=== PATIENT | female | born 1990 ===

== ENCOUNTER 2021-08-13 09:25 | Emergency (ER) | payer OTHER, SELFPAY ==
--- NOTE | ~2021-08-13 | CT_ITS ---
EXAMINATION: CT ABDOMEN AND PELVIS WITH CONTRAST CLINICAL INFORMATION: Lower abdominal pain. Periumbilical pain. Small umbilical hernia. COMPARISON: None TECHNIQUE: Multidetector volumetric images were obtained from the superior aspect of the liver through the pubic symphysis following administration 85 mL of Omnipaque 350 intravenous contrast. Sagittal and coronal reformatted images were obtained on the technologist's workstation. Oral contrast: No This CT examination was performed using dose optimization techniques as appropriate, variously including the following: *Automated exposure control *Adjustment of mA and/or kV according to patient size (this includes techniques or standardized protocols for targeted exams where dose is matched to indication/reason for exam; i.e. extremities or head) *Use of iterative reconstruction technique DLP: 573 mGy-cm FINDINGS: LUNG BASES: Bilateral lower lobe linear atelectasis. The visualized cardiac structures are unremarkable LIVER, GALLBLADDER, AND BILIARY TREE: The liver is normal in size, shape, and attenuation. No focal hepatic lesion or intrahepatic biliary ductal dilatation is present. The gallbladder is absent. Dilated common bile duct measuring up to 1.2 cm. No ductal filling defect. PANCREAS: Mildly prominent pancreatic duct. No focal pancreatic parenchymal abnormality. SPLEEN: Unremarkable. ADRENAL GLANDS: Unremarkable. KIDNEYS AND URETERS: The kidneys are normal in size, shape, and attenuation. No hydronephrosis, hydroureter, or calculi seen. No perinephric stranding. Multiple hypoattenuating lesions seen in both kidneys. These are too small to fully characterize. BLADDER: Unremarkable. GASTROINTESTINAL TRACT: Small hiatal hernia. The stomach is otherwise unremarkable. Normal caliber small bowel. There is no obstruction. Normal appendix. No colonic wall thickening or acute inflammation. Moderate colonic stool burden with stool seen throughout the entirety of the colon. No free air or free fluid. ABDOMINAL WALL: There is a fat-containing umbilical hernia. This measures 3.5 cm transverse. LYMPH NODES: Normal. VASCULAR: Unremarkable. PELVIC VISCERA: Anteverted uterus with IUD in place. No adnexal mass. OSSEOUS STRUCTURES: Unremarkable. CT/CT abdomen pelvis w con IMPRESSION: No acute inflammatory change of the abdomen or pelvis. Normal appendix. Fat-containing umbilical hernia noted. Moderate colonic stool burden. Multiple hypoattenuating lesions in the kidneys which are too small to fully characterize. Cysts are favored. Ultrasound could performed on a nonemergent basis. Fleischner guidelines were followed.
[2021-08-13 09:35] VITALS: BP 120/82; PULSE 80; O2SAT 98
[2021-08-13 09:47] VITALS: BP 138/79; PULSE 115; RESP 18; TEMP 36.8; O2SAT 100; BMI 27.4
[2021-08-13 16:44] LABS: MANUAL DIFF FLAG NO
[2021-08-13 16:47] LABS: Basophils Percent Auto 0.2 % (0-2); Eosinophils Absolute Auto 0.1 X10*3/uL (0.0-0.4); Eosinophils Percent Auto 1.1 % (0-4); Hematocrit 35.6 % (37.0-47.0); Hemoglobin 11.6 g/dl (12.0-16.0); Imm Gran Abs Auto 0.01 X10*3/uL (0.00-0.03); Imm Gran Pct Auto 0.2 % (0.0-0.4); Lymphocytes Absolute Auto 1.6 X10*3/uL (1.2-4.9); Mean Corpuscular HGB Conc 32.6 g/dl (31.0-35.0); Mean Corpuscular Hemoglobin 28.8 pg (27.0-33.0); Mean Corpuscular Volume 88.3 fL (80.0-98.0); Monocytes Absolute Auto 0.2 X10*3/uL (0.1-1.2); Monocytes Percent Auto 5.3 % (2-11); Neutrophils Absolute Auto 2.6 x10*3/uL (2.0-8.3); Neutrophils Percent Auto 58.2 % (45-73); Platelet Count 273 X10*3/uL (160-400); Red Blood Count 4.03 X10*6/uL (4.20-5.50); Red Cell Distribution Width 12.9 % (11.0-16.0); White Blood Count 4.5 X10*3/uL (4.8-10.8)
[2021-08-13 16:59] LABS: COVID-19 Test Negative (Negative)
[2021-08-13 17:04] LABS: Alanine Aminotransferase 22 U/L (0-31); Albumin Level 3.5 g/dL (3.5-5.0); Alkaline Phosphatase 106 U/L (39-117); Aspartate Amino Transferase 32 U/L (5-31); Bilirubin Direct 0.2 mg/dL (0.0-0.5); Bilirubin Total 0.3 mg/dL (0.0-1.0); Blood Urea Nitrogen 3 mg/dL (9-16); Creatinine Clr Calc Pharmacy 125.1; Estimated Glomerular Filt Rate > 60; Glucose Random 79 mg/dL (60-115); Lipase 10 U/L (8-78); Magnesium 2.1 mg/dL (1.6-2.6); Total Protein 8.2 g/dL (6.5-8.0)
[2021-08-13 17:15] LABS: Anion Gap 12 (12-20); Carbon Dioxide 26 mmol/L (22-29); Chloride 103 mmol/L (96-108); Potassium 4.2 mmol/L (3.3-5.1); Sodium 137 mmol/L (135-145)
[2021-08-13 21:45] VITALS: BP 108/71; PULSE 116; TEMP 36.8; O2SAT 96
[2021-08-13] MEDS: Ondansetron ODT 4 MG TAB.RAPDIS TRANSLINGU (21:49)
--- NOTE | 2021-08-13 23:45 | ED.ABDPAIN ---
HPI - Abdominal Pain General Chief Complaint: Abdominal Pain Stated Complaint: ABD PAIN,VOMITING,-VACC Time Seen by Provider: 08/13/21 11:52 Source: patient Mode of arrival: EMS Limitations: no limitations History of Present Illness HPI narrative: 31-year-old female who presents emergency department by ambulance for evaluation of abdominal pain. Patient states that she has been having intermittent abdominal pain for approximately 3 weeks. She also noticed a lump in the area of her belly button approximately 3 or 4 weeks prior. She states that she has been having intermittent pain mainly in the umbilical area. She states this morning she woke up and had a severe, sharp pain in the bili cul area which is been constant throughout the day. She states that the pain is 6/10 at its worst. She states she has been vomiting all day and has only been able to hold down small amounts of fluid. She a normal bowel movement this morning. She denied frequency, urgency or dysuria. She denied myalgias arthralgias. She states she has had chills but no fever. The patient states she has an IUD and she does not believes she is . patient did receive Zofran 4 mg IV by the paramedics with improvement of her nausea but no change in her abdominal pain. The patient has not been vaccinated for COVID-19. Related Data Allergies Allergy/AdvReac Type Severity Reaction Status Date / Time From REGLAN Allergy Unknown ITCHING Uncoded 04/14/20 18:27 Review of Systems Review of Systems Yes all other systems are reviewed and are negative Physical Exam Vital Signs: Vital Signs: Last Vital Signs Temp 97.9 F 08/14/21 00:57 Pulse 90 08/14/21 00:57 Resp 16 08/14/21 00:57 BP 99/54 L 08/14/21 00:57 Pulse Ox 99 08/14/21 00:57 BMI result Body Mass Index 27.4 Const: Other: Very pleasant and cooperative female patient, does not appear to be in distress, answers all questions appropriately. HENMT: Head: Yes normal to inspection, Yes normocephalic and Yes atraumatic Ears: external ears normal General nose exam: Normal external nose present Face and sinus: Yes normal facial exam Mouth: Normal oral and palatal mucosa present Throat: Yes posterior oropharynx normal Eyes: General: appearance normal, both eyes and all related structures Pupils: Equal, round and reactive pupils present Neck: Neck: Yes normal visual inspection, Yes no lymphadenopathy, Yes trachea midline and Yes supple Chest: Chest palpation & inspection: normal inspection of the chest and normal palpation of entire chest wall Resp: Effort & Inspection: normal respiratory effort and able to speak in complete sentences Auscultation: clear to auscultation bilaterally Cardio: Rate: regular rate Rhythm: regular rhythm Heart sounds: S1 normal heart sound present, S2 normal heart sound present and no murmurs GI: Inspection: No distended and Yes other ( small umbilical hernia at 12 o'clock) Palpation (GI): Soft to palpation, Tenderness to palpation present (GI) periumbilically ( Moderate) and no guarding Auscultation: normal bowel sounds : General: Yes CVA tenderness on the left ( mild) Back/Spine/Pelvis: Back: CVA tenderness Skin: General skin exam: no rashes or lesions noted Neuro: Cranial nerves: Yes CN's II-XII intact bilaterally and Yes Equal, round and reactive pupils present Cognition (Neuro): normal cognition Motor exam (neuro): 5/5 motor strength present throughout Extrem: General: Yes normal to inspection Psych: Appearance: grossly normal Speech and movement: Normal speech and movement present Affect: normal affect Attitude: cooperative Thought process: Normal thought process present Thought content: Normal thought content present Course Course Course Narrative: 31-year-old female who presented to emergency department for evaluation of intermittent abdominal pain times 3 weeks, the patient also noticed a new lump in the umbilical area. patient states she woke up this morning and the pain in her umbilical area was constant and she had nausea vomiting and was only able to drink small amounts of fluid throughout the day. She did have a normal bowel movement this morning. She denies abdominal distension. vital signs revealed tachycardia with a pulse of 115 but she states she has known tachycardia. Vital signs were otherwise unremarkable. Abdominal exam did reveal a small umbilical hernia at the o'clock position. The hernia was tender to palpation but was easily reducible with gentle pressure. The patient did not get any relief of her abdominal pain however with reduction of the hernia. 2354: Laboratory evaluation: Mild anemia with an H&H of 11 and 35.6. Comprehensive metabolic panel did reveal an elevated AST of 32 and a normal lipase. Urinalysis and urine tests are pending collection. COVID-19 test was negative. I ordered a quantitative beta HCG, CT scan of the abdomen pelvis with IV contrast, Toradol 15 mg IV, Zofran 4 mg IV and normal saline IV x1 L. 0056 : Patient's urine and urine test were negative. patient states her pain is significantly better after the above treatment. 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 Her urine tox screen came back positive for fentanyl I did discuss this with her. She states she did use heroin several days ago, I did discuss the risk of overdose from fentanyl and the patient is aware of this and states she will talk to her methadone program about her use and possible again on a higher dose of methadone. If the patient is discharged, she will be sent home with a intranasal Narcan rescue pack. CT scan of the abdomen pelvis is pending. 0251: The patient's CT scan of the abdomen pelvis with IV contrast did reveal a fat containing umbilical hernia. I believe that prior to CT scan of, the patient did have a small intestinal hernia which I was able to reduce. There is no evidence of a bowel obstruction. CT scan was otherwise unremarkable. Patient is still feeling significantly better after I reduced the hernia. The patient will be discharged home and advised to take Tylenol and ibuprofen for pain. She will be given the name of our on-call surgeon to follow-up with. Patient will be discharged with intranasal Narcan As discussed above.. MDM - Abdominal Pain Lab Data Result diagrams: 08/13/21 16:39 08/13/21 16:39 Labs: Lab Results 08/13/21 08/13/21 08/13/21 Range/Units 16:39 16:39 16:39 WBC 4.5 L (4.8-10.8) X10*3/uL RBC 4.03 L (4.20-5.50) X10*6/uL Hgb 11.6 L (12.0-16.0) g/dl Hct 35.6 L (37.0-47.0) % MCV 88.3 (80.0-98.0) fL MCH 28.8 (27.0-33.0) pg MCHC 32.6 (31.0-35.0) g/dl RDW 12.9 (11.0-16.0) % Plt Count 273 (160-400) X10*3/uL MPV 9.0 L (9.4-12.3) fL Immature Gran % (Auto) 0.2 (0.0-0.4) % Neut % (Auto) 58.2 (45-73) % Lymph % (Auto) 35.0 (20-40) % [place] % (Auto) 5.3 (2-11) % Eos % (Auto) 1.1 (0-4) % Baso % (Auto) 0.2 (0-2) % Lymph # (Auto) 1.6 (1.2-4.9) X10*3/uL [place] # (Auto) 0.2 (0.1-1.2) X10*3/uL Eos # (Auto) 0.1 (0.0-0.4) X10*3/uL Baso # (Auto) 0.0 (0.0-0.2) X10*3/uL Abs Immat Gran (auto) 0.01 (0.00-0.03) X10*3/uL Absolute Neuts (auto) 2.6 (2.0-8.3) x10*3/uL Absolute Nucleated RBC 0.000 (0.0-0.012) X10*3/uL Nucleated RBC % (auto) 0.0 (0.0-0.2) /100WBC Sodium 137 (135-145) mmol/L Potassium 4.2 (3.3-5.1) mmol/L Chloride 103 (96-108) mmol/L Carbon Dioxide 26 (22-29) mmol/L Anion Gap 12 (12-20) BUN 3 L (9-16) mg/dL Creatinine 0.63 (0.5-1.4) mg/dL Estim Creat Clear Calc 125.1 Estimated GFR > 60 Random Glucose 79 (60-115) mg/dL Calcium 9.0 (8.4-10.2) mg/dL Magnesium 2.1 (1.6-2.6) mg/dL Total Bilirubin 0.3 (0.0-1.0) mg/dL Direct Bilirubin 0.2 (0.0-0.5) mg/dL AST 32 H (5-31) U/L ALT 22 (0-31) U/L Alkaline Phosphatase 106 (39-117) U/L Total Protein 8.2 H (6.5-8.0) g/dL Albumin 3.5 (3.5-5.0) g/dL Lipase 10 (8-78) U/L Beta HCG, Quant < 2 mIU/mL Urine Color Urine Appearance Urine pH (5.0-8.0) Ur Specific [place] (1.005-1.025) Urine Protein (NEG-TRACE) MG/DL Urine Glucose (UA) (NEG) MG/DL Urine Ketones (NEG) MG/DL Urine Blood (NEG) Urine Nitrite (NEG) Ur Leukocyte Esterase (NEG) Urine RBC (0) /HPF Urine WBC (0-4) /HPF Ur Squamous Epith Cells /LPF Urine Bacteria /LPF Urine Mucus /LPF Urine Trichomonas Urine Test (NEGATIVE) Urine Opiates Screen (Not Detect) Urine Fentanyl Screen (Not Detect) Ur Barbiturates Screen (Not Detect) Ur Phencyclidine Scrn (Not Detect) Ur Amphetamines Screen (Not Detect) U Benzodiazepines Scrn (Not Detect) Urine Cocaine Screen (Not Detect) U Marijuana (THC) Screen (Not Detect) COVID-19 (DHARMESH) Negative (Negative) COVID-19 Clin Com See Note 08/13/21 08/13/21 08/13/21 Range/Units 23:54 23:54 23:54 WBC (4.8-10.8) X10*3/uL RBC (4.20-5.50) X10*6/uL Hgb (12.0-16.0) g/dl Hct (37.0-47.0) % MCV (80.0-98.0) fL MCH (27.0-33.0) pg MCHC (31.0-35.0) g/dl RDW (11.0-16.0) % Plt Count (160-400) X10*3/uL MPV (9.4-12.3) fL Immature Gran % (Auto) (0.0-0.4) % Neut % (Auto) (45-73) % Lymph % (Auto) (20-40) % [place] % (Auto) (2-11) % Eos % (Auto) (0-4) % Baso % (Auto) (0-2) % Lymph # (Auto) (1.2-4.9) X10*3/uL [place] # (Auto) (0.1-1.2) X10*3/uL Eos # (Auto) (0.0-0.4) X10*3/uL Baso # (Auto) (0.0-0.2) X10*3/uL Abs Immat Gran (auto) (0.00-0.03) X10*3/uL Absolute Neuts (auto) (2.0-8.3) x10*3/uL Absolute Nucleated RBC (0.0-0.012) X10*3/uL Nucleated RBC % (auto) (0.0-0.2) /100WBC Sodium (135-145) mmol/L Potassium (3.3-5.1) mmol/L Chloride (96-108) mmol/L Carbon Dioxide (22-29) mmol/L Anion Gap (12-20) BUN (9-16) mg/dL Creatinine (0.5-1.4) mg/dL Estim Creat Clear Calc Estimated GFR Random Glucose (60-115) mg/dL Calcium (8.4-10.2) mg/dL Magnesium (1.6-2.6) mg/dL Total Bilirubin (0.0-1.0) mg/dL Direct Bilirubin (0.0-0.5) mg/dL AST (5-31) U/L ALT (0-31) U/L Alkaline Phosphatase (39-117) U/L Total Protein (6.5-8.0) g/dL Albumin (3.5-5.0) g/dL Lipase (8-78) U/L Beta HCG, Quant mIU/mL Urine Color YELLOW Urine Appearance HAZY Urine pH 6.0 (5.0-8.0) Ur Specific [place] >= 1.030 H (1.005-1.025) Urine Protein NEG (NEG-TRACE) MG/DL Urine Glucose (UA) NEG (NEG) MG/DL Urine Ketones NEG (NEG) MG/DL Urine Blood NEG (NEG) Urine Nitrite NEG (NEG) Ur Leukocyte Esterase 1+ H (NEG) Urine RBC 1-4 (0) /HPF Urine WBC 5-9 H (0-4) /HPF Ur Squamous Epith Cells 2+ /LPF Urine Bacteria 2+ /LPF Urine Mucus 3+ /LPF Urine Trichomonas NOTED Urine Test NEGATIVE (NEGATIVE) Urine Opiates Screen POSITIVE H (Not Detect) Urine Fentanyl Screen POSITIVE H (Not Detect) Ur Barbiturates Screen Not Detected (Not Detect) Ur Phencyclidine Scrn Not Detected (Not Detect) Ur Amphetamines Screen Not Detected (Not Detect) U Benzodiazepines Scrn Not Detected (Not Detect) Urine Cocaine Screen Not Detected (Not Detect) U Marijuana (THC) Screen Not Detected (Not Detect) COVID-19 (DHARMESH) (Negative) COVID-19 Clin Com Discharge Plan Discharge Clinical Impression: Abdominal pain, Hernia, umbilical, Opiate use Patient Disposition: Home, Self-Care Instructions: Umbilical Hernia (ED), Opioid Use Disorder (ED) Additional Instructions: When I examined you, you had an umbilical hernia with a piece of intestine stuck in the hernia, I was able to reduce this hernia by gently pushing on the hernia. If you feel like the hernia gets bigger again and is hard and tender then lie down flat, place an ice pack on the hernia for 10 minutes and then gently push on the hernia until it goes back in. [facility] Past Medical History Attestation statement: The following information was validated with the patient. [facility] Narrative: Past medical history: Lupus involving joint pain and fatigue when she has flare-ups, tachycardia. Past surgical history: Cholecystectomy, ovarian cysts with cystectomy. Social history: The patient smokes 3 cigarettes per day times 10 years. She denies alcohol use. She denies drug use. Social History Social History Advance Directives: No Advance Directives Information Provided: No Patient : No
[2021-08-14 00:01] LABS: Appearance Urine HAZY; Color Urine YELLOW; Glucose Urine UA NEG (NEG); Leukocyte Esterase Urine 1+ (NEG); Nitrite Urine NEG (NEG); Specific Gravity - Urine >= 1.030 (1.005-1.025); UACC Culture Trigger YES; Urine Blood NEG (NEG); Urine Ketones NEG (NEG); Urine Protein NEG (NEG-TRACE)
[2021-08-14 00:03] LABS: UPreg QC Valid YES; Urine Pregnancy NEGATIVE (NEGATIVE)
[2021-08-14 00:06] LABS: Bacteria Urine 2+ /LPF; Mucus Urine 3+ /LPF; Squamous Epithelial Cell Urine 2+ /LPF; Trichomonas Urine NOTED
[2021-08-14] MEDS: Ketorolac Tromethamine 30 MG/ML VIAL 15 MG IVPUSH (00:08)
[2021-08-14] MEDS: 0.9 % Sodium Chloride 1,000 ML 999 ML IV (00:08)
[2021-08-14] MEDS: ondansetron HCL 4 MG/2 ML VIAL IVPUSH (00:09)
[2021-08-14 00:14] LABS: HCG Quantitative < 2 mIU/mL
[2021-08-14 00:15] LABS: Amphetamine Screen Urine Not Detected (Not Detect); Barbiturates, Urine Not Detected (Not Detect); Benzodiazepines Screen Urine Not Detected (Not Detect); Cannabinoid Screen Urine Not Detected (Not Detect); Cocaine Screen Urine Not Detected (Not Detect); Fentanyl, urine POSITIVE (Not Detect); Opiate Screen Urine POSITIVE (Not Detect); Phencyclidine Screen Urine Not Detected (Not Detect)
[2021-08-14 00:57] VITALS: BP 99/54; PULSE 90; RESP 16; TEMP 36.6; O2SAT 99
[2021-08-14] MEDS: iohexoL 350 MG/ML 100 ML INFUS..BTL 85 ML IV (01:38)
[2021-08-14] MEDS: Naloxone HCl Nasal TAKE HOME 4 MG SPRAY NOSTRILALT (03:45)
== END 2021-08-14 03:48 | disposition home or self-care (01) ==
PROVIDERS: Physician Assistant; Emergency Provider Emergency Medicine Emergency Medical Services; PCP Internal Medicine
DX: R10.9 Unspecified abdominal pain (principal); K42.9 Umbilical hernia without obstruction or gangrene; F11.10 Opioid abuse, uncomplicated; Z79.899 Other long term (current) drug therapy; Z20.822 Contact with and (suspected) exposure to COVID-19; Z71.51 Drug abuse counseling and surveillance of drug abuser
CPT/HCPCS: 74177; 80048; 80076; 80307; 81001; 81003; 81025; 83690; 83735; 84702; 85025; 87086; 87635; 96374; 96375; 96376; 99284; J1885; J2405; Q9967

== ENCOUNTER 2021-08-17 11:19 | Inpatient (IN) | payer OTHER, SELFPAY ==
--- NOTE | 2021-08-17 | ECG_ITS ---
Test Reason : tachy Blood Pressure : / mmHG Vent. Rate : 132 BPM Atrial Rate : 133 BPM P-R Int : 144 ms QRS Dur : 082 ms QT Int : 390 ms P-R-T Axes : 049 044 076 degrees QTc Int : [address] & T wave abnormality, consider anterolateral ischemia Abnormal ECG When compared with ECG of 04-MAY-2017 11:21, ST no longer elevated in Inferior leads ST now depressed in Anterolateral leads T wave inversion now evident in Anterolateral leads Referred By: Generic ED Physician Electronically Signed By:Alphonso Mosqueda
--- NOTE | ~2021-08-17 | XR_ITS ---
EXAMINATION: XR ABDOMEN KUB CLINICAL INDICATION: Abdominal pain COMPARISON: Previous CT of the abdomen and pelvis July 2021 TECHNIQUE: AP view of the abdomen. FINDINGS: There is stool throughout the colon suggestive of constipation. There are still dilated loops of bowel the central abdomen. When compared with previous CT scans, this probably represents large bowel. There is no evidence of free air. There are surgical clips in the right upper quadrant suggestive of previous cholecystectomy. There is an IUD in the pelvis. Bony structures are unremarkable. XR/XR KUB IMPRESSION: Severe constipation and large bowel dilatation similar to previous CT scan.
--- NOTE | ~2021-08-17 | US_ITS ---
EXAMINATION: US PELVIS CLINICAL INFORMATION: Malposition of IUD. COMPARISON: CT dated 08/17/2021 TECHNIQUE: Ultrasound of the pelvis is performed using both transabdominal and transvaginal transducers along with Doppler. Transvaginal imaging is performed due to inadequate visualization transabdominally. FINDINGS: Uterus: The uterus is anteverted and deviated to the right, measuring 6.3 x 2.6 x 3.8 cm The IUD is situated in the endometrial canal along with a small amount of endometrial fluid. The wall thickness is relatively thin (2 to 3 mm) and partially obscured by the presence of the IUD. Per the technologist, assessment is limited by body habitus. The longitudinal portion of the IUD is appropriately situated in the endometrial canal. The cross bar is situated largely situated within the endometrial canal. Myometrial extension of the crossbar portions is not completely excluded, though it largely appears intraluminal. No fibroids are identified. Adnexa: Both ovaries are visualized. There is normal color flow to the adnexa. There is no ovarian torsion. There is no pelvic ascites or fluid collection. Right ovary measures 2.9 x 1.5 x 1.2cm. No right adnexal abnormalities. Left ovary measures 3.5 x 2.0 x 2.2 cm. No left adnexal abnormalities. US/US pelvic and transvaginal IMPRESSION: The majority of the IUD appears appropriately situated in the endometrium. Appearance on the CT is likely the result of anteversion and right lateral deviation of the uterus within the pelvis. Protrusion of the lateral margins of the crossbar portion of the IUD into the myometrium cannot be excluded on these images, but is not clearly seen. Otherwise normal pelvic ultrasound
--- NOTE | ~2021-08-17 | CT_ITS ---
EXAMINATION: CT ANGIOGRAM OF THE CHEST WITH AND WITHOUT CONTRAST (CT PULMONARY ANGIOGRAM FOR PE) CLINICAL INFORMATION: Reason for Exam cp, elevated dimer, COMPARISON: May 04, 2017 TECHNIQUE: Prior to contrast administration, noncontrast localization images were obtained. Subsequently, multidetector volumetric imaging was performed from the thoracic inlet to below the diaphragms following the administration of 85 mL Omnipaque 350 intravenous contrast. No contrast reaction reported Sagittal, coronal, and MIP oblique sagittal reformatted images were obtained on the CT workstation, uploaded to PACS, and reviewed. This CT examination was performed using dose optimization techniques as appropriate, variously including the following: *Automated exposure control *Adjustment of mA and/or kV according to patient size (this includes techniques or standardized protocols for targeted exams where dose is matched to indication/reason for exam; i.e. extremities or head) *Use of iterative reconstruction technique Total exam dose-length product 244.28 mGy-cm FINDINGS: QUALITY OF STUDY/CONTRAST BOLUS: Satisfactory. PULMONARY ARTERIES: No central or segmental pulmonary emboli. THORACIC AORTA: No aneurysm or dissection. LUNG: Central airways are patent. There is a 3 mm noncalcified nodule seen within the right upper lobe on image 182 of 507 in series #9. There are bilateral lower lobe confluent regions of parenchymal disease consistent with pneumonia. No Bronchiectasis. PLEURA: No pleural effusion or pneumothorax. MEDIASTINUM: The heart is enlarged. No pericardial effusion. There appears to be mild AP window, subcarinal, and bilateral hilar lymphadenopathy present. No evidence of septal bowing or right heart strain. CHEST WALL/AXILLA: There is prominence of bilateral subpectoral lymph nodes right greater than left. No internal mammary lymphadenopathy. OSSEOUS STRUCTURES: No acute or suspicious osseous abnormality. UPPER ABDOMEN: Unremarkable. No reflux of contrast into the hepatic veins to suggest elevated right heart pressures. CT/CT angio chest PE protocol IMPRESSION: No evidence of acute pulmonary artery embolus. No evidence of thoracic aortic aneurysm or dissection. Bilateral lower lobe airspace disease consistent with pneumonia. Mediastinal and hilar mild lymphadenopathy. VTE: negative
--- NOTE | ~2021-08-17 | CT_ITS ---
EXAMINATION: CT ABDOMEN AND PELVIS WITH CONTRAST CLINICAL INFORMATION: Abdominal pain, nausea, vomiting, umbilical hernia. COMPARISON: August 14, 2021 TECHNIQUE: Multidetector volumetric images were obtained from the superior aspect of the liver through the pubic symphysis following administration 85 mL of Omnipaque 350 intravenous contrast. Sagittal and coronal reformatted images were obtained on the technologist's workstation. Oral contrast: No This CT examination was performed using dose optimization techniques as appropriate, variously including the following: *Automated exposure control *Adjustment of mA and/or kV according to patient size (this includes techniques or standardized protocols for targeted exams where dose is matched to indication/reason for exam; i.e. extremities or head) *Use of iterative reconstruction technique DLP: 244.28 mGy-cm FINDINGS: LUNG BASES: There is bibasilar confluent airspace disease consistent with pneumonia. LIVER, GALLBLADDER, AND BILIARY TREE: The liver is normal in size, shape, and attenuation. No focal hepatic lesion or biliary ductal dilatation is present. Status post cholecystectomy. PANCREAS: Unremarkable. SPLEEN: Unremarkable. ADRENAL GLANDS: Unremarkable. KIDNEYS AND URETERS: The kidneys are normal in size, shape, and attenuation. There are bilateral cortical cyst present. No hydronephrosis, hydroureter, or calculi seen. No perinephric stranding. BLADDER: Unremarkable. GASTROINTESTINAL TRACT: No dilated loops of large or small bowel are evident. There are numerous fluid-filled nondilated loops of small bowel. No free air is seen. No significant free fluid is seen. There is a small hiatal hernia present. There is stool seen throughout the colon with moderate stool burden. No pericolonic inflammatory changes seen. The appendix appears unremarkable. ABDOMINAL WALL: There is a small umbilical fat-containing hernia with some fat streaking present. The width of the mouth of the hernia is 1.3 cm. The appearance is unchanged from study of August 14, 2021. LYMPH NODES: No lymphadenopathy appreciated. VASCULAR: Unremarkable. PELVIC VISCERA: No suspicious pelvic masses identified. It is difficult to evaluate if there is proper positioning of the intrauterine device within the endometrial canal. No definite perforation of the periphery of the uterus is seen and no definite hematoma is noted but uterine position has changed since previous study of August 14, 2021 and does appear to be a minimal amount of fluid and stranding about the lower pelvis. Ultrasound may be of help in further evaluation of IUD positioning.. OSSEOUS STRUCTURES: No suspicious destructive bony lesions identified. CT/CT abdomen pelvis w con IMPRESSION: Bilateral lower lobe parenchymal disease consistent with pneumonia. Possible malposition of intrauterine device for which ultrasound of the pelvis may be of help in better evaluation. No evidence of obstructive uropathy. Bilateral renal cysts. Fleischner guidelines were followed.
[2021-08-17 11:24] VITALS: BP 115/79; BP 127/71; PULSE 135; PULSE 139; RESP 22; TEMP 37.1; O2SAT 94; O2SAT 95; BMI 27.4
--- NOTE | 2021-08-17 11:35 | ED_ITS ---
HPI - Abdominal Pain General Chief Complaint: Abdominal Pain Stated Complaint: ABD PAIN/N/V X 3 WEEKS,RECENT HX HERNIA Time Seen by Provider: 08/17/21 11:35 Source: patient Mode of arrival: ambulatory Limitations: no limitations History of Present Illness HPI narrative: 31-year-old female past medical history lupus presents to the emergency department with complaints of abdominal pain in the epigastric region, nausea, vomiting X 3 weeks and chest pain since this morning. Patient tells me that she was seen here before few days ago where she was told she had an umbilical hernia and she was told to return with new or worsening symptoms. She tells me what made her come in today is the chest pain she is having it is substernal in nature, nonradiating, 10/10, sharp and constant. She tells me it awoke her from her sleep. She tells me she has no significant cardiac history, no significant family cardiac history. She tells me that she has been nauseous and vomiting for the past 3 weeks, the only thing that makes it better is nausea medicine she is not sure the name of it. She denies shortness of breat h, fevers, chills, headache, dizziness, weakness. She tells me that she smokes cigarettes. She denies drug use including cocaine use. She does not think she is . MD elicited complaint: abdominal pain Pertinent past history: none Onset (ago): week(s) (3) Pain Consistency: constant Location: epigastric Severity: severe Pain scale (0-10): 10 Radiation: none Migration to: no migration Exacerbating factors: nothing Context: other Associated symptoms: nausea, vomiting and other (Chest pain ) Related Data Home Medications Medication Instructions Recorded Confirmed amitriptyline 10 mg tablet 25 - 75 mg PO BEDTIME 08/17/21 08/17/21 prednisone 5 mg tablet 10 mg PO DAILY 08/17/21 08/17/21 Allergies Allergy/AdvReac Type Severity Reaction Status Date / Time From REGLAN Allergy Unknown ITCHING Uncoded 04/14/20 18:27 Review of Systems Review of Systems Constitutional : No Weight loss, No Fever, No Chills ENT/Mouth :? No sore throat, No Rhinorrhea Eyes: No Swelling, No Redness Cardiovascular : + Chest Pain, No SOB, No Edema Respiratory : No Cough, No Sputum, No Wheezing Gastrointestinal : + Nausea, + Vomiting, No Diarrhea, + abdominal Pain, No Hematochezia, No Melena Genitourinary : No Dysuria, No Urinary Frequency, No Hematuria, No Urgency Musculoskeletal : No joint pain, No Myalgias, No Joint Swelling Skin : No Skin Lesions, No rash Neuro : No Weakness, No Numbness, No Dizziness, No Headache Psych : No Anxiety/Panic, No Depression All other systems reviewed and are negative. Yes all other systems are reviewed and are negative Physical Exam Vital Signs: Vital Signs: Last Vital Signs Temp 98.9 F 08/17/21 14:47 Pulse 107 H 08/17/21 14:47 Resp 16 08/17/21 14:47 BP 103/53 L 08/17/21 14:47 Pulse Ox 95 08/17/21 14:47 BMI result Body Mass Index 27.4 Vital signs are stable however patient is noted to be tachycardic likely secondary to dehydration Appearance: Alert.? Oriented X3.? No acute distress.? Head: Normocephalic, atraumatic, no step-offs or deformities Eyes: Pupils equal, round and reactive to light.? ENT: Pharynx normal.? Neck: Normal inspection.? Neck supple.? CVS: Normal heart rate and rhythm.? Pulses normal.? Respiratory: No respiratory distress.? Breath sounds normal.? Abdomen: Soft and + diffuse tenderness. + umbilical hernia that is easily reducible, doesnt appear to be incarcerated. ? Skin: Skin warm and dry.? Normal skin color.? Normal skin turgor.? Extremities: No lower extremity edema.? No calf ttp. 5/5 strength to bilateral upper and lower extremities Back: No midline tenderness, no C-spine tenderness, full range of motion, no CVA tenderness bilaterally Neuro: Oriented X 3.? No motor deficit.? No sensory deficit. Course Reevaluation(s) Reevaluation #1: Patient's laboratory studies significant for a marked leukocytosis, elevated inflammatory markers. No acute electrolyte abnormalities . D-dimer was elevated for this reason a CTA will be done to rule out pulmonary embolism as patient is experiencing chest pain. Trop <3.5. A CT of the abdomen and pelvis will also be ordered, although patient had 1 just a few days ago she is now having worsening symptoms, and she now has a leuko cytosis, unlikely that this leukocytosis is only from reactivity from vomiting. Time: 12:58 Reevaluation #2: Prophylactic antibiotics will be given as patient has an elevated leukocytosis, source is unsure at this time. Time: 14:32 Reevaluation #3: Patient continues to complain of 8/10 substernal chest pain, she tells me that the morphine did not help bilat 15 mg of Toradol at this time. Unlikely that this is myocarditis, patient's troponin is negative. Unlikely ACS. Possibly pericarditis, PE will be ruled out with CTA. Time: 14:37 Additional Reevaluation(s): 1517 CTA does not show VTE/PE. It does show bilateral lower lobe pneumonia. I will add azithromycin for community-acquired pneumonia coverage. Patient continues to complain of chest pain, nausea. Tachycardia and hypotension likely secondary to a fluid depletion. An additional L of fluids will be ordered at this time. 1550 Will reach out to hospitalist for admission. [address]Maqsood das this cp is secondary to infection. Unlikely ischemic. May require an echo tomorrow as there are new EKG changes. He recommends a second trop. 1805 to admit patient. Cardiology consult ordered MDM - Abdominal Pain MDM Narrative Medical decision making narrative: 1138 31 yo f presents to ED w/ complaints of nausea, vomiting, and epigastric pain X 3 weeks. She also reports CP that awoke her from her sleep this morning, she tells me it is substernal, 10/10, sharp. No cardiac history, no family cardiac history. She denies shortness of breath. Physical examination significant for diffuse tenderness upon palpation to the abdomen. There is an umbilical hernia present that is easily reducible with pressure, it does not appear to be incarcerated or strangulated. Plan at this time is to treat patient with antiemetics. I will also hydrate patient obtain basic labs. An EKG and troponin will also be done. Medical Records Attestation: I reviewed the patient's medical records. Lab Data Attestation: I reviewed the patient's lab results. Result diagrams: 08/17/21 12:02 08/17/21 12:02 Labs: Lab Results 08/17/21 08/17/21 08/17/21 Range/Units 11:56 12:02 12:02 WBC 19.0 H (4.8-10.8) X10*3/uL RBC 4.53 (4.20-5.50) X10*6/uL Hgb 12.9 (12.0-16.0) g/dl Hct 39.5 (37.0-47.0) % MCV 87.2 (80.0-98.0) fL MCH 28.5 (27.0-33.0) pg MCHC 32.7 (31.0-35.0) g/dl RDW 12.8 (11.0-16.0) % Plt Count 339 (160-400) X10*3/uL MPV 8.9 L (9.4-12.3) fL Immature Gran % (Auto) 0.5 H (0.0-0.4) % Neut % (Auto) 86.6 H (45-73) % Lymph % (Auto) 8.8 L (20-40) % [place] % (Auto) 3.9 (2-11) % Eos % (Auto) 0.0 (0-4) % Baso % (Auto) 0.2 (0-2) % Lymph # (Auto) 1.7 (1.2-4.9) X10*3/uL [place] # (Auto) 0.7 (0.1-1.2) X10*3/uL Eos # (Auto) 0.0 (0.0-0.4) X10*3/uL Baso # (Auto) 0.0 (0.0-0.2) X10*3/uL Abs Immat Gran (auto) 0.09 H (0.00-0.03) X10*3/uL Absolute Neuts (auto) 16.4 H (2.0-8.3) x10*3/uL Absolute Nucleated RBC 0.000 (0.0-0.012) X10*3/uL Nucleated RBC % (auto) 0.0 (0.0-0.2) /100WBC ESR (0-20) MM/HR D-Dimer High Sensitivty NG/ML Sodium 136 (135-145) mmol/L Potassium 3.7 (3.3-5.1) mmol/L Chloride 104 (96-108) mmol/L Carbon Dioxide 23 (22-29) mmol/L Anion Gap 13 (12-20) BUN 7 L D (9-16) mg/dL Creatinine 0.66 (0.5-1.4) mg/dL Estim Creat Clear Calc 119.4 Estimated GFR > 60 Random Glucose 119 H (60-115) mg/dL Lactic Acid (0.5-2.0) mmol/L Calcium 9.1 (8.4-10.2) mg/dL Magnesium 1.8 (1.6-2.6) mg/dL Total Bilirubin 0.7 (0.0-1.0) mg/dL AST 36 H (5-31) U/L ALT 22 (0-31) U/L Alkaline Phosphatase 117 (39-117) U/L Troponin I High Sens (<3.5-17.0) ng/L C-Reactive Protein 10.43 H (< or = 0.50) mg/dL Total Protein 8.9 H (6.5-8.0) g/dL Albumin 3.6 (3.5-5.0) g/dL Lipase 7 L (8-78) U/L Beta HCG, Quant < 2 mIU/mL Urine Color Urine Appearance Urine pH (5.0-8.0) Ur Specific [place] (1.005-1.025) Urine Protein (NEG-TRACE) MG/DL Urine Glucose (UA) (NEG) MG/DL Urine Ketones (NEG) MG/DL Urine Blood (NEG) Urine Nitrite (NEG) Ur Leukocyte Esterase (NEG) Urine RBC (0) /HPF Urine WBC (0-4) /HPF Ur Squamous Epith Cells /LPF Amorphous Sediment /LPF Urine Bacteria /LPF Urine Trichomonas Urine Test (NEGATIVE) Urine Opiates Screen (Not Detect) Urine Fentanyl Screen (Not Detect) Ur Barbiturates Screen (Not Detect) Ur Phencyclidine Scrn (Not Detect) Ur Amphetamines Screen (Not Detect) U Benzodiazepines Scrn (Not Detect) Urine Cocaine Screen (Not Detect) U Marijuana (THC) Screen (Not Detect) COVID-19 (DHARMESH) Negative (Negative) COVID-19 Clin Com See Note Influenza Type A (PCR) (Negative) Influenza Type B (PCR) (Negative) RSV RNA Qual (PCR) (Negative) SARS-CoV-2 RNA (RT-PCR) (Negative) 08/17/21 08/17/21 08/17/21 Range/Units 12:02 12:02 12:02 WBC (4.8-10.8) X10*3/uL RBC (4.20-5.50) X10*6/uL Hgb (12.0-16.0) g/dl Hct (37.0-47.0) % MCV (80.0-98.0) fL MCH (27.0-33.0) pg MCHC (31.0-35.0) g/dl RDW (11.0-16.0) % Plt Count (160-400) X10*3/uL MPV (9.4-12.3) fL Immature Gran % (Auto) (0.0-0.4) % Neut % (Auto) (45-73) % Lymph % (Auto) (20-40) % [place] % (Auto) (2-11) % Eos % (Auto) (0-4) % Baso % (Auto) (0-2) % Lymph # (Auto) (1.2-4.9) X10*3/uL [place] # (Auto) (0.1-1.2) X10*3/uL Eos # (Auto) (0.0-0.4) X10*3/uL Baso # (Auto) (0.0-0.2) X10*3/uL Abs Immat Gran (auto) (0.00-0.03) X10*3/uL Absolute Neuts (auto) (2.0-8.3) x10*3/uL Absolute Nucleated RBC (0.0-0.012) X10*3/uL Nucleated RBC % (auto) (0.0-0.2) /100WBC ESR 69 H (0-20) MM/HR D-Dimer High Sensitivty 696 NG/ML Sodium (135-145) mmol/L Potassium (3.3-5.1) mmol/L Chloride (96-108) mmol/L Carbon Dioxide (22-29) mmol/L Anion Gap (12-20) BUN (9-16) mg/dL Creatinine (0.5-1.4) mg/dL Estim Creat Clear Calc Estimated GFR Random Glucose (60-115) mg/dL Lactic Acid (0.5-2.0) mmol/L Calcium (8.4-10.2) mg/dL Magnesium (1.6-2.6) mg/dL Total Bilirubin (0.0-1.0) mg/dL AST (5-31) U/L ALT (0-31) U/L Alkaline Phosphatase (39-117) U/L Troponin I High Sens < 3.5 (<3.5-17.0) ng/L C-Reactive Protein (< or = 0.50) mg/dL Total Protein (6.5-8.0) g/dL Albumin (3.5-5.0) g/dL Lipase (8-78) U/L Beta HCG, Quant mIU/mL Urine Color Urine Appearance Urine pH (5.0-8.0) Ur Specific [place] (1.005-1.025) Urine Protein (NEG-TRACE) MG/DL Urine Glucose (UA) (NEG) MG/DL Urine Ketones (NEG) MG/DL Urine Blood (NEG) Urine Nitrite (NEG) Ur Leukocyte Esterase (NEG) Urine RBC (0) /HPF Urine WBC (0-4) /HPF Ur Squamous Epith Cells /LPF Amorphous Sediment /LPF Urine Bacteria /LPF Urine Trichomonas Urine Test (NEGATIVE) Urine Opiates Screen (Not Detect) Urine Fentanyl Screen (Not Detect) Ur Barbiturates Screen (Not Detect) Ur Phencyclidine Scrn (Not Detect) Ur Amphetamines Screen (Not Detect) U Benzodiazepines Scrn (Not Detect) Urine Cocaine Screen (Not Detect) U Marijuana (THC) Screen (Not Detect) COVID-19 (DHARMESH) (Negative) COVID-19 Clin Com Influenza Type A (PCR) (Negative) Influenza Type B (PCR) (Negative) RSV RNA Qual (PCR) (Negative) SARS-CoV-2 RNA (RT-PCR) (Negative) 08/17/21 08/17/21 08/17/21 Range/Units 13:11 13:11 13:11 WBC (4.8-10.8) X10*3/uL RBC (4.20-5.50) X10*6/uL Hgb (12.0-16.0) g/dl Hct (37.0-47.0) % MCV (80.0-98.0) fL MCH (27.0-33.0) pg MCHC (31.0-35.0) g/dl RDW (11.0-16.0) % Plt Count (160-400) X10*3/uL MPV (9.4-12.3) fL Immature Gran % (Auto) (0.0-0.4) % Neut % (Auto) (45-73) % Lymph % (Auto) (20-40) % [place] % (Auto) (2-11) % Eos % (Auto) (0-4) % Baso % (Auto) (0-2) % Lymph # (Auto) (1.2-4.9) X10*3/uL [place] # (Auto) (0.1-1.2) X10*3/uL Eos # (Auto) (0.0-0.4) X10*3/uL Baso # (Auto) (0.0-0.2) X10*3/uL Abs Immat Gran (auto) (0.00-0.03) X10*3/uL Absolute Neuts (auto) (2.0-8.3) x10*3/uL Absolute Nucleated RBC (0.0-0.012) X10*3/uL Nucleated RBC % (auto) (0.0-0.2) /100WBC ESR (0-20) MM/HR D-Dimer High Sensitivty NG/ML Sodium (135-145) mmol/L Potassium (3.3-5.1) mmol/L Chloride (96-108) mmol/L Carbon Dioxide (22-29) mmol/L Anion Gap (12-20) BUN (9-16) mg/dL Creatinine (0.5-1.4) mg/dL Estim Creat Clear Calc Estimated GFR Random Glucose (60-115) mg/dL Lactic Acid (0.5-2.0) mmol/L Calcium (8.4-10.2) mg/dL Magnesium (1.6-2.6) mg/dL Total Bilirubin (0.0-1.0) mg/dL AST (5-31) U/L ALT (0-31) U/L Alkaline Phosphatase (39-117) U/L Troponin I High Sens (<3.5-17.0) ng/L C-Reactive Protein (< or = 0.50) mg/dL Total Protein (6.5-8.0) g/dL Albumin (3.5-5.0) g/dL Lipase (8-78) U/L Beta HCG, Quant mIU/mL Urine Color YELLOW Urine Appearance HAZY Urine pH 8.0 (5.0-8.0) Ur Specific [place] 1.015 (1.005-1.025) Urine Protein NEG (NEG-TRACE) MG/DL Urine Glucose (UA) NEG (NEG) MG/DL Urine Ketones NEG (NEG) MG/DL Urine Blood NEG (NEG) Urine Nitrite NEG (NEG) Ur Leukocyte Esterase 2+ H (NEG) Urine RBC 0 (0) /HPF Urine WBC 15-29 H (0-4) /HPF Ur Squamous Epith Cells 4+ /LPF Amorphous Sediment 2+ /LPF Urine Bacteria 1+ /LPF Urine Trichomonas NOTED Urine Test NEGATIVE (NEGATIVE) Urine Opiates Screen POSITIVE H (Not Detect) Urine Fentanyl Screen POSITIVE H (Not Detect) Ur Barbiturates Screen Not Detected (Not Detect) Ur Phencyclidine Scrn Not Detected (Not Detect) Ur Amphetamines Screen Not Detected (Not Detect) U Benzodiazepines Scrn Not Detected (Not Detect) Urine Cocaine Screen Not Detected (Not Detect) U Marijuana (THC) Screen Not Detected (Not Detect) COVID-19 (DHARMESH) (Negative) COVID-19 Clin Com Influenza Type A (PCR) (Negative) Influenza Type B (PCR) (Negative) RSV RNA Qual (PCR) (Negative) SARS-CoV-2 RNA (RT-PCR) (Negative) 08/17/21 08/17/21 08/17/21 Range/Units 13:19 15:56 16:34 WBC (4.8-10.8) X10*3/uL RBC (4.20-5.50) X10*6/uL Hgb (12.0-16.0) g/dl Hct (37.0-47.0) % MCV (80.0-98.0) fL MCH (27.0-33.0) pg MCHC (31.0-35.0) g/dl RDW (11.0-16.0) % Plt Count (160-400) X10*3/uL MPV (9.4-12.3) fL Immature Gran % (Auto) (0.0-0.4) % Neut % (Auto) (45-73) % Lymph % (Auto) (20-40) % [place] % (Auto) (2-11) % Eos % (Auto) (0-4) % Baso % (Auto) (0-2) % Lymph # (Auto) (1.2-4.9) X10*3/uL [place] # (Auto) (0.1-1.2) X10*3/uL Eos # (Auto) (0.0-0.4) X10*3/uL Baso # (Auto) (0.0-0.2) X10*3/uL Abs Immat Gran (auto) (0.00-0.03) X10*3/uL Absolute Neuts (auto) (2.0-8.3) x10*3/uL Absolute Nucleated RBC (0.0-0.012) X10*3/uL Nucleated RBC % (auto) (0.0-0.2) /100WBC ESR (0-20) MM/HR D-Dimer High Sensitivty NG/ML Sodium (135-145) mmol/L Potassium (3.3-5.1) mmol/L Chloride (96-108) mmol/L Carbon Dioxide (22-29) mmol/L Anion Gap (12-20) BUN (9-16) mg/dL Creatinine (0.5-1.4) mg/dL Estim Creat Clear Calc Estimated GFR Random Glucose (60-115) mg/dL Lactic Acid 1.4 (0.5-2.0) mmol/L Calcium (8.4-10.2) mg/dL Magnesium (1.6-2.6) mg/dL Total Bilirubin (0.0-1.0) mg/dL AST (5-31) U/L ALT (0-31) U/L Alkaline Phosphatase (39-117) U/L Troponin I High Sens < 3.5 (<3.5-17.0) ng/L C-Reactive Protein (< or = 0.50) mg/dL Total Protein (6.5-8.0) g/dL Albumin (3.5-5.0) g/dL Lipase (8-78) U/L Beta HCG, Quant mIU/mL Urine Color Urine Appearance Urine pH (5.0-8.0) Ur Specific [place] (1.005-1.025) Urine Protein (NEG-TRACE) MG/DL Urine Glucose (UA) (NEG) MG/DL Urine Ketones (NEG) MG/DL Urine Blood (NEG) Urine Nitrite (NEG) Ur Leukocyte Esterase (NEG) Urine RBC (0) /HPF Urine WBC (0-4) /HPF Ur Squamous Epith Cells /LPF Amorphous Sediment /LPF Urine Bacteria /LPF Urine Trichomonas Urine Test (NEGATIVE) Urine Opiates Screen (Not Detect) Urine Fentanyl Screen (Not Detect) Ur Barbiturates Screen (Not Detect) Ur Phencyclidine Scrn (Not Detect) Ur Amphetamines Screen (Not Detect) U Benzodiazepines Scrn (Not Detect) Urine Cocaine Screen (Not Detect) U Marijuana (THC) Screen (Not Detect) COVID-19 (DHARMESH) (Negative) COVID-19 Clin Com Influenza Type A (PCR) NEGATIVE (Negative) Influenza Type B (PCR) NEGATIVE (Negative) RSV RNA Qual (PCR) NEGATIVE (Negative) SARS-CoV-2 RNA (RT-PCR) NEGATIVE (Negative) Imaging Data CTA chest : Attestation: I personally reviewed and interpreted this imaging study as follows: Radiologist's impression: CT/CT angio chest PE protocol IMPRESSION: No evidence of acute pulmonary artery embolus. ? No evidence of thoracic aortic aneurysm or dissection. ? Bilateral lower lobe airspace disease consistent with pneumonia. ? Mediastinal and hilar mild lymphadenopathy. ? VTE: negative CT scan - abdomen: Attestation: I personally reviewed and interpreted this imaging study as follows: Radiologist's impression: CT/CT abdomen pelvis w con IMPRESSION: Bilateral lower lobe parenchymal disease consistent with pneumonia. ? Possible malposition of intrauterine device for which ultrasound of the pelvis may be of help in better evaluation. ? No evidence of obstructive uropathy. ? Bilateral renal cysts.? ? Fleischner guidelines were followed. ECG Data Attestation: I personally reviewed and interpreted this ECG as follows: ECG interpretation date: 08/17/21 ECG interpretation time: 11:30 Prior ECG tracings: available for review Interpretation: Ventricular rate of 132, NE normal, QRS normal, QT/QTC slightly prolonged 390/577. EKG shows sinus tachycardia, and new ST depressions in the anterior leads when compared to EKG from previous. There is also a Q-wave noted in lead III. Will order trop. Critical Care Time Critical Care Time Critical Care Time: No Discharge Plan Discharge Clinical Impression: Pneumonia Patient Disposition: Admitted As Inpatient COUNTS INCLUDE 234 BEDS AT THE [facility] Past Medical History Attestation statement: The following information was validated with the patient. Source: old records reviewed and nursing notes reviewed Medical History Lupus Surgical History Hx of cholecystectomy Family History Family History (Updated 08/17/21 @ 18:06 by Eddy Anthony MD) Sister SLE (systemic lupus erythematosus related syndrome) Social History Social History Alcohol intake: never Patient Tobacco Use Status: Current everyday Tobacco user Smoked in Last 30 Days: Yes Use of substances other than those prescribed or required for medical reasons: Yes Substance Use Type: Heroin Advance Directives: No Advance Directives Information Provided: Yes Patient : No
[2021-08-17 12:06] LABS: MANUAL DIFF FLAG NO
[2021-08-17] MEDS: Morphine Sulfate 4 MG/ML CARTRIDGE IVPUSH (12:09)
[2021-08-17] MEDS: Aspirin Enteric Coated 325 MG TABLET.DR PO (12:09)
[2021-08-17] MEDS: ondansetron HCL 4 MG/2 ML VIAL IVPUSH ×2 (12:09→15:22)
[2021-08-17] MEDS: 0.9 % Sodium Chloride 1,000 ML 999 ML IV ×2 (12:09→15:16)
[2021-08-17 12:15] LABS: Basophils Percent Auto 0.2 % (0-2); Hematocrit 39.5 % (37.0-47.0); Hemoglobin 12.9 g/dl (12.0-16.0); Imm Gran Abs Auto 0.09 X10*3/uL (0.00-0.03); Imm Gran Pct Auto 0.5 % (0.0-0.4); Lymphocytes Absolute Auto 1.7 X10*3/uL (1.2-4.9); Lymphocytes Percent Auto 8.8 % (20-40); Mean Corpuscular HGB Conc 32.7 g/dl (31.0-35.0); Mean Corpuscular Hemoglobin 28.5 pg (27.0-33.0); Mean Corpuscular Volume 87.2 fL (80.0-98.0); Mean Platelet Volume 8.9 fL (9.4-12.3); Monocytes Absolute Auto 0.7 X10*3/uL (0.1-1.2); Monocytes Percent Auto 3.9 % (2-11); Neutrophils Absolute Auto 16.4 x10*3/uL (2.0-8.3); Neutrophils Percent Auto 86.6 % (45-73); Platelet Count 339 X10*3/uL (160-400); Red Blood Count 4.53 X10*6/uL (4.20-5.50); Red Cell Distribution Width 12.8 % (11.0-16.0)
[2021-08-17 12:22] LABS: D Dimer High Sensitivity 696 NG/ML
[2021-08-17 12:29] LABS: Alanine Aminotransferase 22 U/L (0-31); Albumin Level 3.6 g/dL (3.5-5.0); Alkaline Phosphatase 117 U/L (39-117); Anion Gap 13 (12-20); Aspartate Amino Transferase 36 U/L (5-31); Bilirubin Total 0.7 mg/dL (0.0-1.0); Blood Urea Nitrogen 7 mg/dL (9-16); Calcium 9.1 mg/dL (8.4-10.2); Carbon Dioxide 23 mmol/L (22-29); Chloride 104 mmol/L (96-108); Creatinine Clr Calc Pharmacy 119.4; Estimated Glomerular Filt Rate > 60; Glucose Random 119 mg/dL (60-115); Magnesium 1.8 mg/dL (1.6-2.6); Potassium 3.7 mmol/L (3.3-5.1); Sodium 136 mmol/L (135-145); Total Protein 8.9 g/dL (6.5-8.0)
[2021-08-17 12:30] VITALS: BP 122/75; PULSE 105; RESP 30; TEMP 37.2; O2SAT 98
[2021-08-17 12:32] LABS: COVID-19 Test Negative (Negative); IDNOW Serial# 9DD0AD1C
[2021-08-17 12:32] LABS: Troponin-I High Sensitivity < 3.5 ng/L (<3.5-17.0)
[2021-08-17 12:54] LABS: C Reactive Protein 10.43 mg/dL (< or = 0.50)
[2021-08-17 13:17] LABS: Erythrocyte Sedimentation Rate 69 MM/HR (0-20)
[2021-08-17 13:20] LABS: HCG Quantitative < 2 mIU/mL
[2021-08-17 13:33] LABS: UPreg QC Valid YES; Urine Pregnancy NEGATIVE (NEGATIVE)
[2021-08-17 13:34] LABS: Appearance Urine HAZY; Color Urine YELLOW; Glucose Urine UA NEG (NEG); Leukocyte Esterase Urine 2+ (NEG); Nitrite Urine NEG (NEG); Specific Gravity - Urine 1.015 (1.005-1.025); UACC Culture Trigger YES; Urine Blood NEG (NEG); Urine Ketones NEG (NEG); Urine Protein NEG (NEG-TRACE)
[2021-08-17 13:38] LABS: Amorphous Sediment Urine 2+ /LPF; Squamous Epithelial Cell Urine 4+ /LPF
[2021-08-17 13:39] LABS: Bacteria Urine 1+ /LPF
[2021-08-17 13:41] LABS: RBC Urine 0 /HPF (0); Trichomonas Urine NOTED
[2021-08-17 13:45] LABS: Lactic Acid 1.4 mmol/L (0.5-2.0)
[2021-08-17 13:50] LABS: Amphetamine Screen Urine Not Detected (Not Detect); Barbiturates, Urine Not Detected (Not Detect); Benzodiazepines Screen Urine Not Detected (Not Detect); Cannabinoid Screen Urine Not Detected (Not Detect); Cocaine Screen Urine Not Detected (Not Detect); Fentanyl, urine POSITIVE (Not Detect); Opiate Screen Urine POSITIVE (Not Detect); Phencyclidine Screen Urine Not Detected (Not Detect)
[2021-08-17] MEDS: iohexoL 350 MG/ML 100 ML INFUS..BTL IV (13:53)
[2021-08-17] MEDS: Piperacillin Sodium/Tazobactam 3.375 GM in 0.9 % Sodium Chloride 50 ML IV (14:26)
[2021-08-17 14:39] LABS: Lipase 7 U/L (8-78)
[2021-08-17 14:47] VITALS: BP 103/53; PULSE 107; RESP 16; TEMP 37.2; O2SAT 95
[2021-08-17] MEDS: Ketorolac Tromethamine 30 MG/ML VIAL 15 MG IVPUSH (14:48)
[2021-08-17] MEDS: Azithromycin 500 MG in 0.9 % Sodium Chloride 250 ML 125 MG IV (15:22)
--- NOTE | 2021-08-17 15:55 | PHA.MEDREC ---
Pharmacy Consult ? Medication Reconciliation Pharmacy has completed the medication reconciliation. Spoke with patient in ED. Patient has not taken her medications in over a week due to md office closing.
[2021-08-17 16:37] LABS: Influenza A PCR NEGATIVE (Negative); Influenza B PCR NEGATIVE (Negative); Resp Syncy Virus RNA Qual PCR NEGATIVE (Negative); SARS COV2 PCR INHOUSE NEGATIVE (Negative)
[2021-08-17 16:57] LABS: Troponin-I High Sensitivity < 3.5 ng/L (<3.5-17.0)
--- NOTE | 2021-08-17 18:12 | PM.IMHP ---
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 Patient initially presented on 08/13/2021 with chief complaint of abdominal pain, was periumbilical related to a umbilical hernia, pain improved with reduction of the hernia. She reported vomiting and inability to tolerate fluids. she had a CT abdomen which was unremarkable. Symptoms had improved with Zofran so she was discharged home. Patient then reports that abdominal pain recurred, then started having shortness of breath. On a.m. of admission patient woke up with midsternal sharp chest pain 10 at 10, constant, will car from her sleep, worse on inspiration. EKG showed some lateral lead ST depressions, 2 sets of troponin were negative. CRP elevated to 10.43, white blood cell count elevated to 19. CTA was negative for PE, did show bilateral lower lobe airspace disease consistent with pneumonia. There was concern for dislodged IUD, however ultrasound was negative. COVID was negative. Review of Systems Review of Systems: Constitutional: Denies fever, denies Chills Eyes: denies blurry vision ENT: denies sore throat CVS: chest pain Respiratory: dyspnea GI: abdominal pain : denies dysuria MSK: denies neck pain Skin: denies rash Neuro: denies specific motor weakness Psych: denies suicidal ideation Endocrine: denies heat/cold intolerance Hematologic: denies easy bleeding Allergy: denies hives [facility] Medical History Lupus Opiate dependence Family History Sister SLE (systemic lupus erythematosus related syndrome) Surgical History Hx of cholecystectomy Social History Alcohol intake: never Patient Tobacco Use Status: Current everyday Tobacco user Smoked in Last 30 Days: Yes Use of substances other than those prescribed or required for medical reasons: Yes Substance Use Type: Heroin Advance Directives: No Advance Directives Information Provided: Yes Patient : No Meds Allergies Allergy/AdvReac Type Severity Reaction Status Date / Time From REGLAN Allergy Unknown ITCHING Uncoded 04/14/20 18:27 Active Medications: Current Medications Pharmacy Consult (Consult Rx Perform Med Rec) 1 each MISCELLANE ONCE PRN PRN Reason: Consult order Home Medications Medication Instructions Recorded Confirmed Last Taken Type amitriptyline 10 mg tablet 25 - 75 mg PO BEDTIME 08/17/21 08/17/21 08/10/21 History prednisone 5 mg tablet 10 mg PO DAILY 08/17/21 08/17/21 08/10/21 History Physical Exam Vital Signs and Narrative: Vital Signs: Last Vital Signs Temp 98.9 F 08/17/21 14:47 Pulse 107 H 08/17/21 14:47 Resp 16 08/17/21 14:47 BP 103/53 L 08/17/21 14:47 Pulse Ox 95 08/17/21 14:47 BMI result Body Mass Index 27.4 General: no acute distress HEENT: atraumatic Neck: normal to visual inspection CVS: S1, S2, RRR Resp: CTA bilateral Chest: non tender GI: soft, non tender, non distended, Reducible umbilical hernia : no CVA tenderness Skin: no rashes Extremities: no edema Neuro: Oriented X3, grossly intact Psych: cooperative Results Labs CBC and Chem 7: 08/17/21 12:02 08/17/21 12:02 Labs: Laboratory Results - last 24 hr 08/17/21 08/17/21 08/17/21 11:56 12:02 12:02 MCV 87.2 MCH 28.5 MCHC 32.7 RDW 12.8 Plt Count 339 MPV 8.9 L Immature Gran % (Auto) 0.5 H Neut % (Auto) 86.6 H Lymph % (Auto) 8.8 L [place] % (Auto) 3.9 Eos % (Auto) 0.0 Baso % (Auto) 0.2 Lymph # (Auto) 1.7 [place] # (Auto) 0.7 Eos # (Auto) 0.0 Baso # (Auto) 0.0 Abs Immat Gran (auto) 0.09 H Absolute Neuts (auto) 16.4 H Absolute Nucleated RBC 0.000 Nucleated RBC % (auto) 0.0 ESR D-Dimer High Sensitivty Anion Gap 13 Estim Creat Clear Calc 119.4 Estimated GFR > 60 Random Glucose 119 H Lactic Acid Calcium 9.1 Magnesium 1.8 Total Bilirubin 0.7 AST 36 H ALT 22 Alkaline Phosphatase 117 Troponin I High Sens C-Reactive Protein 10.43 H Total Protein 8.9 H Albumin 3.6 Lipase 7 L Beta HCG, Quant < 2 Urine Color Urine Appearance Urine pH Ur Specific Welch Urine Protein Urine Glucose (UA) Urine Ketones Urine Blood Urine Nitrite Ur Leukocyte Esterase Urine RBC Urine WBC Ur Squamous Epith Cells Amorphous Sediment Urine Bacteria Urine Trichomonas Urine Test Urine Opiates Screen Urine Fentanyl Screen Ur Barbiturates Screen Ur Phencyclidine Scrn Ur Amphetamines Screen U Benzodiazepines Scrn Urine Cocaine Screen U Marijuana (THC) Screen COVID-19 (DHARMESH) Negative COVID-19 Clin Com See Note Influenza Type A (PCR) Influenza Type B (PCR) RSV RNA Qual (PCR) SARS-CoV-2 RNA (RT-PCR) 08/17/21 08/17/21 08/17/21 12:02 12:02 12:02 MCV MCH MCHC RDW Plt Count MPV Immature Gran % (Auto) Neut % (Auto) Lymph % (Auto) [place] % (Auto) Eos % (Auto) Baso % (Auto) Lymph # (Auto) [place] # (Auto) Eos # (Auto) Baso # (Auto) Abs Immat Gran (auto) Absolute Neuts (auto) Absolute Nucleated RBC Nucleated RBC % (auto) ESR 69 H D-Dimer High Sensitivty 696 Anion Gap Estim Creat Clear Calc Estimated GFR Random Glucose Lactic Acid Calcium Magnesium Total Bilirubin AST ALT Alkaline Phosphatase Troponin I High Sens < 3.5 C-Reactive Protein Total Protein Albumin Lipase Beta HCG, Quant Urine Color Urine Appearance Urine pH Ur Specific Welch Urine Protein Urine Glucose (UA) Urine Ketones Urine Blood Urine Nitrite Ur Leukocyte Esterase Urine RBC Urine WBC Ur Squamous Epith Cells Amorphous Sediment Urine Bacteria Urine Trichomonas Urine Test Urine Opiates Screen Urine Fentanyl Screen Ur Barbiturates Screen Ur Phencyclidine Scrn Ur Amphetamines Screen U Benzodiazepines Scrn Urine Cocaine Screen U Marijuana (THC) Screen COVID-19 (DHARMESH) COVID-19 Clin Com Influenza Type A (PCR) Influenza Type B (PCR) RSV RNA Qual (PCR) SARS-CoV-2 RNA (RT-PCR) 08/17/21 08/17/21 08/17/21 13:11 13:11 13:11 MCV MCH MCHC RDW Plt Count MPV Immature Gran % (Auto) Neut % (Auto) Lymph % (Auto) [place] % (Auto) Eos % (Auto) Baso % (Auto) Lymph # (Auto) [place] # (Auto) Eos # (Auto) Baso # (Auto) Abs Immat Gran (auto) Absolute Neuts (auto) Absolute Nucleated RBC Nucleated RBC % (auto) ESR D-Dimer High Sensitivty Anion Gap Estim Creat Clear Calc Estimated GFR Random Glucose Lactic Acid Calcium Magnesium Total Bilirubin AST ALT Alkaline Phosphatase Troponin I High Sens C-Reactive Protein Total Protein Albumin Lipase Beta HCG, Quant Urine Color YELLOW Urine Appearance HAZY Urine pH 8.0 Ur Specific Welch 1.015 Urine Protein NEG Urine Glucose (UA) NEG Urine Ketones NEG Urine Blood NEG Urine Nitrite NEG Ur Leukocyte Esterase 2+ H Urine RBC 0 Urine WBC 15-29 H Ur Squamous Epith Cells 4+ Amorphous Sediment 2+ Urine Bacteria 1+ Urine Trichomonas NOTED Urine Test NEGATIVE Urine Opiates Screen POSITIVE H Urine Fentanyl Screen POSITIVE H Ur Barbiturates Screen Not Detected Ur Phencyclidine Scrn Not Detected Ur Amphetamines Screen Not Detected U Benzodiazepines Scrn Not Detected Urine Cocaine Screen Not Detected U Marijuana (THC) Screen Not Detected COVID-19 (DHARMESH) COVID-19 Clin Com Influenza Type A (PCR) Influenza Type B (PCR) RSV RNA Qual (PCR) SARS-CoV-2 RNA (RT-PCR) 08/17/21 08/17/21 08/17/21 13:19 15:56 16:34 MCV MCH MCHC RDW Plt Count MPV Immature Gran % (Auto) Neut % (Auto) Lymph % (Auto) [place] % (Auto) Eos % (Auto) Baso % (Auto) Lymph # (Auto) [place] # (Auto) Eos # (Auto) Baso # (Auto) Abs Immat Gran (auto) Absolute Neuts (auto) Absolute Nucleated RBC Nucleated RBC % (auto) ESR D-Dimer High Sensitivty Anion Gap Estim Creat Clear Calc Estimated GFR Random Glucose Lactic Acid 1.4 Calcium Magnesium Total Bilirubin AST ALT Alkaline Phosphatase Troponin I High Sens < 3.5 C-Reactive Protein Total Protein Albumin Lipase Beta HCG, Quant Urine Color Urine Appearance Urine pH Ur Specific Welch Urine Protein Urine Glucose (UA) Urine Ketones Urine Blood Urine Nitrite Ur Leukocyte Esterase Urine RBC Urine WBC Ur Squamous Epith Cells Amorphous Sediment Urine Bacteria Urine Trichomonas Urine Test Urine Opiates Screen Urine Fentanyl Screen Ur Barbiturates Screen Ur Phencyclidine Scrn Ur Amphetamines Screen U Benzodiazepines Scrn Urine Cocaine Screen U Marijuana (THC) Screen COVID-19 (DHARMESH) COVID-19 Clin Com Influenza Type A (PCR) NEGATIVE Influenza Type B (PCR) NEGATIVE RSV RNA Qual (PCR) NEGATIVE SARS-CoV-2 RNA (RT-PCR) NEGATIVE Imaging Radiologist's Impressions: Impressions Abdomen/Pelvis CT 08/17/21 14:05 IMPRESSION: Bilateral lower lobe parenchymal disease consistent with pneumonia. Possible malposition of intrauterine device for which ultrasound of the pelvis may be of help in better evaluation. No evidence of obstructive uropathy. Bilateral renal cysts. Fleischner guidelines were followed. Chest CTA 08/17/21 14:05 IMPRESSION: No evidence of acute pulmonary artery embolus. No evidence of thoracic aortic aneurysm or dissection. Bilateral lower lobe airspace disease consistent with pneumonia. Mediastinal and hilar mild lymphadenopathy. VTE: negative Pelvic/Transvag US 08/17/21 17:09 IMPRESSION: The majority of the IUD appears appropriately situated in the endometrium. Appearance on the CT is likely the result of anteversion and right lateral deviation of the uterus within the pelvis. Protrusion of the lateral margins of the crossbar portion of the IUD into the myometrium cannot be excluded on these images, but is not clearly seen. Otherwise normal pelvic ultrasound Assessment and Plan (1) Pneumonia: Status: Acute (2) Opiate dependence: Status: Acute 31F presented with abdominal pain, chest pain, shortness of breath abdominal pain likely due to hernia, no signs of incarceration currently asymptomatic chest pain doubt ACS could be pericarditis versus musculoskeletal pain from vomiting monitor on tele NSAIDs check echo cardio eval shortness of breath CTA with bilateral lower lobe opacity will cover for bacterial pneumonia with ceftriaxone and doxycycline though more likely atelectasis from poor inspiratory effort due to abdominal pain versus aspiration pneumonitis from vomiting chronic opiate dependence reports recent heroin use verify methadone and restart screen for HIV and hepatitis-C Trichomonas Flagyl 500 b.i.d. for 7 days insomnia amitriptyline SLE on chronic steroids, will increase dose for stress needs outpatient Rheumatology for steroid sparing agents DVT prophylaxis with Lovenox Quality Stroke Does the patient have a stroke diagnosis?: No VTE Prior VTE?: No VTE Risk Level:: Medical - moderate - high VTE Device Contraindication: Treatment Not Indicated VTE Drug Contraindication: N/A - Med Ordered
[2021-08-17] MEDS: Enoxaparin Sodium 40 MG/0.4 ML SYRINGE SUBCUT (18:27)
[2021-08-17] MEDS: metroNIDAZOLE 500 MG TABLET PO (18:28)
[2021-08-17] MEDS: Ibuprofen 800 MG TABLET PO (18:28)
[2021-08-17 19:35] VITALS: BP 100/53; PULSE 88; RESP 16; TEMP 36.8; O2SAT 95
[2021-08-17 20:00] VITALS: BP 106/59; PULSE 93; RESP 20; TEMP 37; O2SAT 94
--- NOTE | 2021-08-17 20:10 | PC.NURSE ---
report given to med/surgical asst
[2021-08-17] MEDS: Amitriptyline HCl 25 MG TABLET PO (20:48)
[2021-08-18] VITALS: BP 108/59; PULSE 78; RESP 19; TEMP 36; O2SAT 93
--- NOTE | 2021-08-18 | ECG_ITS ---
Test Reason : chest pain Blood Pressure : / mmHG Vent. Rate : 078 BPM Atrial Rate : 078 BPM P-R Int : 152 ms QRS Dur : 092 ms QT Int : 456 ms P-R-T Axes : 055 052 058 degrees QTc Int : 519 ms Normal sinus rhythm Nonspecific ST and T wave abnormality Abnormal ECG When compared with ECG of 17-AUG-2021 11:29, Vent. rate has decreased BY 54 BPM Nonspecific T wave abnormality has replaced inverted T waves in Anterolateral leads Referred By: Ranjan Draper Electronically Signed By:Alphonso Mosqueda
[2021-08-18] MEDS: 0.9 % Sodium Chloride Flush 3 ML SYRINGE IVFLUSH ×3 (02:03→16:58)
[2021-08-18 03:24] VITALS: BP 100/44; PULSE 63; RESP 18; TEMP 36.4; O2SAT 96
[2021-08-18 05:46] LABS: Hematocrit 31.4 % (37.0-47.0); Hemoglobin 10.1 g/dl (12.0-16.0); Mean Corpuscular HGB Conc 32.2 g/dl (31.0-35.0); Mean Corpuscular Hemoglobin 28.5 pg (27.0-33.0); Mean Corpuscular Volume 88.7 fL (80.0-98.0); Mean Platelet Volume 8.8 fL (9.4-12.3); Platelet Count 232 X10*3/uL (160-400); Red Blood Count 3.54 X10*6/uL (4.20-5.50); White Blood Count 7.8 X10*3/uL (4.8-10.8)
[2021-08-18] MEDS: metroNIDAZOLE 500 MG TABLET PO ×2 (06:22→19:14)
[2021-08-18] MEDS: Omeprazole 40 MG CAPSULE.DR PO (06:22)
[2021-08-18 06:24] LABS: Anion Gap 11 (12-20); Blood Urea Nitrogen 8 mg/dL (9-16); Calcium 8.4 mg/dL (8.4-10.2); Carbon Dioxide 23 mmol/L (22-29); Chloride 110 mmol/L (96-108); Creatinine Clr Calc Pharmacy 135.9; Estimated Glomerular Filt Rate > 60; Glucose Fasting 72 mg/dL (60-99); Potassium 4.2 mmol/L (3.3-5.1); Sodium 140 mmol/L (135-145)
[2021-08-18 07:32] LABS: HIV AB/AG Nonreactive (Nonreactive); ~HepC Num1 0.46 S/CO (0.00-0.79); ~Hepatitis C Antibody Nonreactive (Nonreactive)
[2021-08-18 08:00] VITALS: BP 96/55; PULSE 74; RESP 18; TEMP 37.1; O2SAT 95
--- NOTE | 2021-08-18 08:00 | CA_ITS ---
Transthoracic Echocardiogram Patient (Last, First, Middle): Venita Grier, Gender: Female Date of : 1990 Age: 31 Procedure Date: 08/18/2021 Procedure Type: Transthoracic Echocardiogram Location: S3E Height: 162.56 cm Weight: 72.58 kg BSA: 1.78 m2 Heart Rate: bpm BP: 100 / 44 mmHg Acoustical Carpenter: STEPHENIE Blake MD: Eddy Anthony MD Symptoms: chest pain, ekg changes Study Quality: Good Conclusions: - Normal left ventricular size, thickness, systolic function, and wall motion. - Normal right ventricular cavity size and systolic function. - Normal right atrial pressure. There is no evidence of pulmonary hypertension. Findings Left Ventricle Normal left ventricular size, thickness, systolic function, and wall motion. The visually estimated ejection fraction is between 55-60%. Diastolic function is normal for age. Right Ventricle Normal right ventricular cavity size and systolic function. Atria The left atrium is normal in size. Aortic Valve Normal aortic valve structure and function. There is no aortic valve stenosis. There is no aortic valve regurgitation. Mitral Valve Normal mitral valve structure and function. There is no mitral valve regurgitation. There is no mitral valve stenosis. Pulmonic Valve Normal pulmonic valve structure and function. There is trace pulmonic valve regurgitation. Tricuspid Valve Normal tricuspid valve structure and function. There is trace tricuspid valve regurgitation. Normal right atrial pressure. There is no evidence of pulmonary hypertension. Great Vessels All visible segments of the aorta are normal in size. The visualized portions of the pulmonary artery and branches are normal. Venous The inferior vena cava is normal in size and collapses greater than 50% with inspiration. Pericardium/Pleural There is no evidence of pericardial effusion. Prior Study Comparison No prior study available for comparison. Measurements 2D Linear Measurements IVSd: 0.99 0.6-0.9/0.6-1.0 cm LVIDd: 4.92 3.9-5.3/4.2-5.9 cm LVIDd Index: 2.76 2.4-3.2/2.2-3.1 cm/m2 LVIDs: 3.43 2.0-3.6 cm LVPWd: 0.86 0.7-1.1 cm Ao Root: 3.10 2.1-3.5 cm LA Diam: 3.30 2.7-3.8/3.0-4.0 cm LAIDs Index: 1.85 1.5-2.3 cm/m2 LV Mass: 198.98 67-162/88-224 g LV Mass Index: 111.79 43-95/49-115 g/m2 LVOT Diam: 2.10 3.0+(-)1.3 cm 2D Systolic Function EF 4C: 58.70 >55% EF 2C: 64.10 >55% EF BiP: 60.40 >55% Mitral Valve MV Pk E: 0.85 MV PK A: 0.58 MV Decel Time: 215.00 E/A: 1.50 E'Lateral: 8.70 E'Medial: 8.59 E/E' Med: 9.90 E/E' Lat: 9.80 PHT: 63.00 MVA PHT: 3.49 Decel Jerauld: 3.96 Aortic Valve AoV Pk Royal: 1.05 AoV Mn Royal: 0.69 AoV VTI: 0.20 AoV Pk Grad: 4.00 Aov Mn Grad: 2.00 DEEPAK Cont.VTI: 3.07 LVOT LVOT Pk Royal: 0.81 LVOT Mn Royal: 0.57 LVOT VTI: 0.18 LVOT Pk Grad: 3.00 LVOT Mn Grad: 2.00 LVOT Diam: 2.10 LVOT Area: 3.46 Diastolic Function MV Pk E: 0.85 MV Pk A: 0.58 E/A: 1.50 E'Medial: 8.59 E/E' Med: 9.90 E' Laterial: 8.70 E/E' Lat: 9.80 Right Ventricle TAPSE (mm): 1.81 TVS' Royal: 12.60 Tricuspid Valve TR Pk Royal: 2.31 TR Pk Grad: 21.00 RA Press: 3.00 RVSP: 24.00 Great Vessels Aorta Ao Root-2D: 3.10 2.0-3.7 cm Ao Asc: 2.80 2.1-3.4 cm Updated in Other Vendor System with Status of Final Alphonso Mosqueda MD electronically signed on 08/18/2021 3:17:47 PM with status of Final
[2021-08-18] MEDS: predniSONE 20 MG TABLET PO (08:08)
[2021-08-18] MEDS: cefTRIAXone sodium 1 GM in 0.9 % Sodium Chloride 50 ML IV (08:08)
[2021-08-18] MEDS: Doxycycline Hyclate 100 MG in 0.9 % Sodium Chloride 250 ML 166.67 MG IV (08:08)
[2021-08-18 12:00] VITALS: BP 117/67; PULSE 81; RESP 18; TEMP 37.3; O2SAT 98
--- NOTE | 2021-08-18 12:33 | P.PNIM_ITS ---
Subjective Subjective Date of Service: 08/18/21 Interval History: Patient seen and examined at bedside. Continues to have chest pain but reports improved. Continues to have abdominal pain With some nausea but no vomiting.reports chronic SOB. denies any urinary symptoms. Review of Systems Review of Systems: Yes all other systems are reviewed and are negative Physical Exam Vital Signs: Vital Signs: Last Vital Signs Temp 98.7 F 08/18/21 08:00 Pulse 74 08/18/21 08:00 Resp 18 08/18/21 08:00 BP 96/55 L 08/18/21 08:00 Pulse Ox 95 08/18/21 08:00 BMI result Body Mass Index 27.4 Const: General: cooperative and no acute distress Orientation/consciousness: patient oriented x3 Resp: Effort & Inspection: normal respiratory effort Auscultation: clear to auscultation bilaterally Cardio: Rate: regular rate Rhythm: regular rhythm GI: Palpation (GI): Soft to palpation Auscultation: normal bowel sounds Neuro: General: patient oriented x3 Extrem: General: Yes normal to inspection and Yes no pedal edema Objective Data Active Medications Amitriptyline HCl (Amitriptyline Hcl 25 Mg Tablet) 25 mg PO BEDTIME [facility] Last Admin: 08/17/21 20:48 Dose: 25 mg Documented by: LILLIAM Enoxaparin Sodium (Enoxaparin Sodium 40 Mg/0.4 Ml Syringe) 40 mg SUBCUT Q24H [facility] Last Admin: 08/17/21 18:27 Dose: 40 mg Documented by: ALVINAOPEWillie Ceftriaxone Sodium 1 gm/ (Sodium Chloride) 50 mls @ 100 mls/hr IV DAILY [facility] Last Infusion: 08/18/21 10:09 Dose: 0 mls/hr Documented by: JACQUELINE Doxycycline Hyclate 100 mg/ (Sodium Chloride) 250 mls @ 166.67 mls/hr IV Q12H [facility] Last Infusion: 08/18/21 10:09 Dose: 0 mls/hr Documented by: JACQUELINE Ibuprofen (Ibuprofen 800 Mg Tablet) 800 mg PO Q8H [facility] Last Admin: 08/18/21 02:02 Dose: Not Given Documented by: RHIANNONASY Non-Admin Reason: Patient Refused Methadone HCl (Methadone Hcl 20 Mg/2 Ml Oral.Conc) 130 mg PO DAILY [facility] Metronidazole (Metronidazole 500 Mg Tablet) 500 mg PO Q12H [facility] Stop: 08/24/21 18:14 Last Admin: 08/18/21 06:22 Dose: 500 mg Documented by: MELLY Omeprazole (Omeprazole 40 Mg Capsule.) 40 mg PO DAILY@0630 [facility] Last Admin: 08/18/21 06:22 Dose: 40 mg Documented by: MELLY Pharmacy Consult (Consult Rx Perform Med Rec) 1 each MISCELLANE ONCE PRN PRN Reason: Consult order Prednisone (Prednisone 20 Mg Tablet) 20 mg PO DAILY [facility] Last Admin: 08/18/21 08:08 Dose: 20 mg Documented by: JACQUELINE Sodium Chloride (0.9 % Sodium Chloride Flush 3 Ml Syringe) 3 ml IVFLUSH QSHIFT [facility] Last Admin: 08/18/21 08:09 Dose: 3 ml Documented by: JACQUELINE Labs CBC & Chem 7: 08/18/21 05:18 08/18/21 05:18 Labs: Laboratory Results - last 24 hr 08/17/21 08/17/21 08/17/21 12:02 12:02 12:02 MCV MCH MCHC RDW Plt Count MPV Absolute Nucleated RBC Nucleated RBC % (auto) ESR 69 H Anion Gap Estim Creat Clear Calc Estimated GFR Fasting Glucose Lactic Acid Calcium Troponin I High Sens < 3.5 C-Reactive Protein 10.43 H Lipase 7 L Beta HCG, Quant < 2 Urine Color Urine Appearance Urine pH Ur Specific Mallard Urine Protein Urine Glucose (UA) Urine Ketones Urine Blood Urine Nitrite Ur Leukocyte Esterase Urine RBC Urine WBC Ur Squamous Epith Cells Amorphous Sediment Urine Bacteria Urine Trichomonas Urine Test Urine Opiates Screen Urine Fentanyl Screen Ur Barbiturates Screen Ur Phencyclidine Scrn Ur Amphetamines Screen U Benzodiazepines Scrn Urine Cocaine Screen U Marijuana (THC) Screen Hepatitis C Ab (EIA) HIV 1&2 Ab/P24 Ag 4thGn Influenza Type A (PCR) Influenza Type B (PCR) RSV RNA Qual (PCR) SARS-CoV-2 RNA (RT-PCR) 08/17/21 08/17/21 08/17/21 13:11 13:11 13:11 MCV MCH MCHC RDW Plt Count MPV Absolute Nucleated RBC Nucleated RBC % (auto) ESR Anion Gap Estim Creat Clear Calc Estimated GFR Fasting Glucose Lactic Acid Calcium Troponin I High Sens C-Reactive Protein Lipase Beta HCG, Quant Urine Color YELLOW Urine Appearance HAZY Urine pH 8.0 Ur Specific Mallard 1.015 Urine Protein NEG Urine Glucose (UA) NEG Urine Ketones NEG Urine Blood NEG Urine Nitrite NEG Ur Leukocyte Esterase 2+ H Urine RBC 0 Urine WBC 15-29 H Ur Squamous Epith Cells 4+ Amorphous Sediment 2+ Urine Bacteria 1+ Urine Trichomonas NOTED Urine Test NEGATIVE Urine Opiates Screen POSITIVE H Urine Fentanyl Screen POSITIVE H Ur Barbiturates Screen Not Detected Ur Phencyclidine Scrn Not Detected Ur Amphetamines Screen Not Detected U Benzodiazepines Scrn Not Detected Urine Cocaine Screen Not Detected U Marijuana (THC) Screen Not Detected Hepatitis C Ab (EIA) HIV 1&2 Ab/P24 Ag 4thGn Influenza Type A (PCR) Influenza Type B (PCR) RSV RNA Qual (PCR) SARS-CoV-2 RNA (RT-PCR) 08/17/21 08/17/21 08/17/21 13:19 15:56 16:34 MCV MCH MCHC RDW Plt Count MPV Absolute Nucleated RBC Nucleated RBC % (auto) ESR Anion Gap Estim Creat Clear Calc Estimated GFR Fasting Glucose Lactic Acid 1.4 Calcium Troponin I High Sens < 3.5 C-Reactive Protein Lipase Beta HCG, Quant Urine Color Urine Appearance Urine pH Ur Specific Mallard Urine Protein Urine Glucose (UA) Urine Ketones Urine Blood Urine Nitrite Ur Leukocyte Esterase Urine RBC Urine WBC Ur Squamous Epith Cells Amorphous Sediment Urine Bacteria Urine Trichomonas Urine Test Urine Opiates Screen Urine Fentanyl Screen Ur Barbiturates Screen Ur Phencyclidine Scrn Ur Amphetamines Screen U Benzodiazepines Scrn Urine Cocaine Screen U Marijuana (THC) Screen Hepatitis C Ab (EIA) HIV 1&2 Ab/P24 Ag 4thGn Influenza Type A (PCR) NEGATIVE Influenza Type B (PCR) NEGATIVE RSV RNA Qual (PCR) NEGATIVE SARS-CoV-2 RNA (RT-PCR) NEGATIVE 08/18/21 08/18/21 08/18/21 05:18 05:18 05:18 MCV 88.7 MCH 28.5 MCHC 32.2 RDW 13.0 Plt Count 232 D MPV 8.8 L Absolute Nucleated RBC 0.000 Nucleated RBC % (auto) 0.0 ESR Anion Gap 11 L Estim Creat Clear Calc 135.9 Estimated GFR > 60 Fasting Glucose 72 Lactic Acid Calcium 8.4 D Troponin I High Sens C-Reactive Protein Lipase Beta HCG, Quant Urine Color Urine Appearance Urine pH Ur Specific Mallard Urine Protein Urine Glucose (UA) Urine Ketones Urine Blood Urine Nitrite Ur Leukocyte Esterase Urine RBC Urine WBC Ur Squamous Epith Cells Amorphous Sediment Urine Bacteria Urine Trichomonas Urine Test Urine Opiates Screen Urine Fentanyl Screen Ur Barbiturates Screen Ur Phencyclidine Scrn Ur Amphetamines Screen U Benzodiazepines Scrn Urine Cocaine Screen U Marijuana (THC) Screen Hepatitis C Ab (EIA) Nonreactive HIV 1&2 Ab/P24 Ag 4thGn Influenza Type A (PCR) Influenza Type B (PCR) RSV RNA Qual (PCR) SARS-CoV-2 RNA (RT-PCR) 08/18/21 05:18 MCV MCH MCHC RDW Plt Count MPV Absolute Nucleated RBC Nucleated RBC % (auto) ESR Anion Gap Estim Creat Clear Calc Estimated GFR Fasting Glucose Lactic Acid Calcium Troponin I High Sens C-Reactive Protein Lipase Beta HCG, Quant Urine Color Urine Appearance Urine pH Ur Specific Mallard Urine Protein Urine Glucose (UA) Urine Ketones Urine Blood Urine Nitrite Ur Leukocyte Esterase Urine RBC Urine WBC Ur Squamous Epith Cells Amorphous Sediment Urine Bacteria Urine Trichomonas Urine Test Urine Opiates Screen Urine Fentanyl Screen Ur Barbiturates Screen Ur Phencyclidine Scrn Ur Amphetamines Screen U Benzodiazepines Scrn Urine Cocaine Screen U Marijuana (THC) Screen Hepatitis C Ab (EIA) HIV 1&2 Ab/P24 Ag 4thGn Nonreactive Influenza Type A (PCR) Influenza Type B (PCR) RSV RNA Qual (PCR) SARS-CoV-2 RNA (RT-PCR) Microbiology Microbiology Results: Microbiology 08/17/21 Unknown Urine Culture - Preliminary Urine clean catch - Urine cunningham top Culture in progress. Assessment and Plan (1) Chest pain: Status: Acute (2) Dyspnea: Status: Acute (3) Trichomonal infection: Status: Acute (4) UTI (urinary tract infection): Status: Acute Assessment and Plan: 31-year-old female with SLE who presents to the hospital with complaints of abdominal pain, chest pain, shortness of breath found to have pneumonia # chest pain - possibly pericarditis, less likely to be ACS - EKG showed some lateral lead ST depressions, 2 sets of troponin were negative - Echo pending - rpt ekg - cardiology following #CAP - presented with dyspnea - CTA showed bilateral lower lobe airpsace ds - on abx day 2 - conitnue - COVID -ve # abd pain - unclear etiology possibly related to umbilucal hernia - abd CT -ve for any acute problems - improing - supportive measures # Trichomonas ?Flagyl 500 b.i.d. for 7 days # asymptomatic UTI - pt on abx as above # chronic opiate dependence ?reports recent heroin use ?verify methadone and restart ?screen for HIV and hepatitis-C # SLE ?on chronic steroids, will increase dose for stress ?needs outpatient Rheumatology for steroid sparing agents DCT ppx: Lovenox Quality Stroke Does the patient have a stroke diagnosis?: No VTE Prior VTE?: No VTE Risk Level:: Medical - moderate - high VTE Device Contraindication: Treatment Not Indicated VTE Drug Contraindication: N/A - Med Ordered
[2021-08-18] MEDS: methADONE HCl 20 MG/2 ML ORAL.CONC 130 MG PO (12:54)
[2021-08-18] MEDS: Ibuprofen 800 MG TABLET PO ×2 (12:55→19:13)
--- NOTE | 2021-08-18 14:46 | MHC.CM.PN ---
met with pt who states she sees a therapist pt will need trnasportaion home when dcd..no other servceis will be needed
--- NOTE | 2021-08-18 15:09 | P.CONCA_ITS ---
History of Present Illness History of Present Illness Date of Service: 08/18/21 Requesting physician: Ranjan Draper Chief complaint: chest pain, dynamic EKG changes Narrative: Pleasant 31-year-old female who has background history of lupus diagnosed few years ago. She has been on prednisone and amitriptyline. Presenting for shortness of breath and sharp chest pain. She has been having chronic sharp chest pains which are central and happen off and on. She has been progressively short of breath over the last year. Now she presented with worsening shortness of breath and underwent CT chest rule out pulmonary embolism which did not show PE but did show bilateral infiltrates for pneumonia and she was started on antibiotics. She also has some chest heaviness which she feels when she moves. She also has dizziness and lightheadedness when she is walking. Does not smoke or drink. Denying any drug abuse. [facility] Past Medical History Medical History Lupus Opiate dependence Family History Family History Sister SLE (systemic lupus erythematosus related syndrome) Surgical History Surgical History Hx of cholecystectomy Social History Social History Household Members: None Housing: Apartment Alcohol intake: never Patient Tobacco Use Status: Current everyday Tobacco user Smoked in Last 30 Days: Yes Use of substances other than those prescribed or required for medical reasons: Yes Substance Use Type: Heroin Currently Displaying Signs/Symptoms of Drug Intoxication Withdrawal: No Advance Directives: No Advance Directives Information Provided: Yes Do you have thoughts of harming others: None Recently lost weight without trying: No Patient : No service: No Meds Allergies Allergy/AdvReac Type Severity Reaction Status Date / Time From REGLAN Allergy Unknown ITCHING Uncoded 04/14/20 18:27 Active Medications: Current Medications Amitriptyline HCl (Amitriptyline Hcl 25 Mg Tablet) 25 mg PO BEDTIME [facility] Last Admin: 08/17/21 20:48 Dose: 25 mg Documented by: Enoxaparin Sodium (Enoxaparin Sodium 40 Mg/0.4 Ml Syringe) 40 mg SUBCUT Q24H [facility] Last Admin: 08/17/21 18:27 Dose: 40 mg Documented by: Ceftriaxone Sodium 1 gm/ (Sodium Chloride) 50 mls @ 100 mls/hr IV DAILY [facility] Last Infusion: 08/18/21 10:09 Dose: Infused Documented by: Doxycycline Hyclate 100 mg/ (Sodium Chloride) 250 mls @ 166.67 mls/hr IV Q12H [facility] Last Infusion: 08/18/21 10:09 Dose: Infused Documented by: Ibuprofen (Ibuprofen 800 Mg Tablet) 800 mg PO Q8H [facility] Last Admin: 08/18/21 12:55 Dose: 800 mg Documented by: Methadone HCl (Methadone Hcl 20 Mg/2 Ml Oral.Conc) 130 mg PO DAILY [facility] Last Admin: 08/18/21 12:54 Dose: 130 mg Documented by: Metronidazole (Metronidazole 500 Mg Tablet) 500 mg PO Q12H [facility] Stop: 08/24/21 18:14 Last Admin: 08/18/21 06:22 Dose: 500 mg Documented by: Omeprazole (Omeprazole 40 Mg Capsule.Dr) 40 mg PO DAILY@0630 [facility] Last Admin: 08/18/21 06:22 Dose: 40 mg Documented by: Pharmacy Consult (Consult Rx Perform Med Rec) 1 each MISCELLANE ONCE PRN PRN Reason: Consult order Prednisone (Prednisone 20 Mg Tablet) 20 mg PO DAILY [facility] Last Admin: 08/18/21 08:08 Dose: 20 mg Documented by: Sodium Chloride (0.9 % Sodium Chloride Flush 3 Ml Syringe) 3 ml IVFLUSH QSHIFT [facility] Last Admin: 08/18/21 08:09 Dose: 3 ml Documented by: Home Medications Medication Instructions Recorded Confirmed Last Taken Type amitriptyline 10 mg tablet 25 - 75 mg PO BEDTIME 08/17/21 08/17/21 08/10/21 History prednisone 5 mg tablet 10 mg PO DAILY 08/17/21 08/17/21 08/10/21 History methadone 10 mg/mL oral 132 mg PO DAILY 08/18/21 08/18/21 Unknown History concentrate (Methadone Intensol) Physical Exam Vital Signs: Vital Signs: Last Vital Signs Temp 99.1 F 08/18/21 12:00 Pulse 81 08/18/21 12:00 Resp 18 08/18/21 12:00 BP 117/67 08/18/21 12:00 Pulse Ox 98 08/18/21 12:00 BMI result Body Mass Index 27.4 GENERAL APPEARANCE: in no acute distress, pleasant. Anxious appearing. NECK: no carotid bruit, no jugular venous distention. SKIN: no suspicious lesions, warm and dry. HEART: no murmurs, regular rate and rhythm. LUNGS: clear to auscultation bilaterally. ABDOMEN: soft, nontender. EXTREMITIES: no edema. PERIPHERAL PULSES: equal. NEUROLOGIC: No gross deficits, AAO X 3 Objective Labs and Meds Result diagrams: 08/18/21 05:18 08/18/21 05:18 Lab results: Laboratory Results - last 24 hr 08/17/21 08/17/21 08/18/21 15:56 16:34 05:18 WBC 7.8 RBC 3.54 L D Hgb 10.1 L D Hct 31.4 L D MCV 88.7 MCH 28.5 MCHC 32.2 RDW 13.0 Plt Count 232 D MPV 8.8 L Absolute Nucleated RBC 0.000 Nucleated RBC % (auto) 0.0 Sodium Potassium Chloride Carbon Dioxide Anion Gap BUN Creatinine Estim Creat Clear Calc Estimated GFR Fasting Glucose Calcium Troponin I High Sens < 3.5 Hepatitis C Ab (EIA) HIV 1&2 Ab/P24 Ag 4thGn Influenza Type A (PCR) NEGATIVE Influenza Type B (PCR) NEGATIVE RSV RNA Qual (PCR) NEGATIVE SARS-CoV-2 RNA (RT-PCR) NEGATIVE 08/18/21 08/18/21 08/18/21 05:18 05:18 05:18 WBC RBC Hgb Hct MCV MCH MCHC RDW Plt Count MPV Absolute Nucleated RBC Nucleated RBC % (auto) Sodium 140 Potassium 4.2 Chloride 110 H Carbon Dioxide 23 Anion Gap 11 L BUN 8 L Creatinine 0.58 Estim Creat Clear Calc 135.9 Estimated GFR > 60 Fasting Glucose 72 Calcium 8.4 D Troponin I High Sens Hepatitis C Ab (EIA) Nonreactive HIV 1&2 Ab/P24 Ag 4thGn Nonreactive Influenza Type A (PCR) Influenza Type B (PCR) RSV RNA Qual (PCR) SARS-CoV-2 RNA (RT-PCR) Imaging Radiologist's impression: Impressions Abdomen/Pelvis CT 08/17/21 14:05 IMPRESSION: Bilateral lower lobe parenchymal disease consistent with pneumonia. Possible malposition of intrauterine device for which ultrasound of the pelvis may be of help in better evaluation. No evidence of obstructive uropathy. Bilateral renal cysts. Fleischner guidelines were followed. Pelvic/Transvag US 08/17/21 17:09 IMPRESSION: The majority of the IUD appears appropriately situated in the endometrium. Appearance on the CT is likely the result of anteversion and right lateral deviation of the uterus within the pelvis. Protrusion of the lateral margins of the crossbar portion of the IUD into the myometrium cannot be excluded on these images, but is not clearly seen. Otherwise normal pelvic ultrasound Assessment and Plan (1) Dyspnea: Status: Acute (2) Chest pain: Status: Acute (3) Abnormal ECG: Status: Acute 31-year-old female who has background of lupus and is presenting with sharp chest pains and anterolateral T-wave inversions. Repeat EKG this morning is showing normalization of the ST-T changes. She has progressive shortness of breath over the last year. Echocardiography was performed which did not show any RV dysfunction of pulmonary hypertension. She also does not have any regional wall motion abnormality or pericardial effusion. She is being treated with antibiotics at this point for the pneumonia. I think these changes are quite concerning and with normal workup right now for pulmonary embolism and pulmonary hypertension I think we have to make sure she does not have underlying coronary disease. Patient is systemic lupus erythematosus can develop premature coronary disease. I think we should put her on heparin drip for now. Potentially transfer her on Saturday evening to [facility] depending on her clinical status do cardiac catheterization next week if she started having any chest discomfort which is different than her sharp chest pain I think we should repeat her EKG again to make sure she does not have any dynamic changes again. She should be on baby aspirin after a 324 mg load. We will follow along with you. Thank you for allowing me to participate in the care of your patient. Please feel free to contact me if you have any questions. Procedures Date of Service Date of Service: 08/18/21
[2021-08-18 16:00] VITALS: BP 96/51; PULSE 67; RESP 17; TEMP 36.4; O2SAT 93
[2021-08-18] MEDS: Aspirin 81 MG TAB.CHEW PO (16:55)
[2021-08-18] MEDS: Enoxaparin Sodium 80 MG/0.8 ML SYRINGE 75 MG SUBCUT (16:56)
[2021-08-18] MEDS: Doxycycline Hyclate 100 MG in 0.9 % Sodium Chloride 250 ML 166.6 MG IV (19:13)
[2021-08-18 19:57] VITALS: BP 128/80; PULSE 71; RESP 18; TEMP 36.6; O2SAT 96
[2021-08-18] MEDS: Amitriptyline HCl 25 MG TABLET PO (21:11)
[2021-08-19] VITALS (7 sets, daily range): BP systolic 117–141; BP diastolic 67–88; PULSE 63–83; RESP 16–20; TEMP 36.3–37.2; O2SAT 94–99
[2021-08-19] MEDS: 0.9 % Sodium Chloride Flush 3 ML SYRINGE IVFLUSH ×4 (00:56→20:00)
[2021-08-19] MEDS: Enoxaparin Sodium 80 MG/0.8 ML SYRINGE 75 MG SUBCUT ×2 (05:47→17:20)
[2021-08-19] MEDS: Omeprazole 40 MG CAPSULE.DR PO (05:47)
[2021-08-19] MEDS: metroNIDAZOLE 500 MG TABLET PO ×2 (05:47→17:21)
[2021-08-19] MEDS: cefTRIAXone sodium 1 GM in 0.9 % Sodium Chloride 50 ML IV (07:28)
[2021-08-19] MEDS: Doxycycline Hyclate 100 MG in 0.9 % Sodium Chloride 250 ML 166.6 MG IV (07:29)
[2021-08-19] MEDS: predniSONE 20 MG TABLET PO (07:29)
[2021-08-19] MEDS: methADONE HCl 20 MG/2 ML ORAL.CONC 130 MG PO (07:30)
[2021-08-19] MEDS: Aspirin 81 MG TAB.CHEW PO (07:30)
[2021-08-19 09:41] LABS: MANUAL DIFF FLAG NO
[2021-08-19 09:52] LABS: Basophils Percent Auto 0.1 % (0-2); Eosinophils Absolute Auto 0.1 X10*3/uL (0.0-0.4); Eosinophils Percent Auto 1.7 % (0-4); Hematocrit 33.8 % (37.0-47.0); Hemoglobin 10.8 g/dl (12.0-16.0); Imm Gran Abs Auto 0.03 X10*3/uL (0.00-0.03); Imm Gran Pct Auto 0.4 % (0.0-0.4); Lymphocytes Absolute Auto 2.4 X10*3/uL (1.2-4.9); Lymphocytes Percent Auto 33.7 % (20-40); Mean Corpuscular Hemoglobin 28.9 pg (27.0-33.0); Mean Corpuscular Volume 90.4 fL (80.0-98.0); Mean Platelet Volume 9.3 fL (9.4-12.3); Monocytes Absolute Auto 0.4 X10*3/uL (0.1-1.2); Monocytes Percent Auto 5.3 % (2-11); Neutrophils Absolute Auto 4.2 x10*3/uL (2.0-8.3); Neutrophils Percent Auto 58.8 % (45-73); Platelet Count 288 X10*3/uL (160-400); Red Blood Count 3.74 X10*6/uL (4.20-5.50); Red Cell Distribution Width 12.8 % (11.0-16.0); White Blood Count 7.2 X10*3/uL (4.8-10.8)
[2021-08-19 10:07] LABS: Anion Gap 12 (12-20); Blood Urea Nitrogen 8 mg/dL (9-16); Calcium 8.4 mg/dL (8.4-10.2); Carbon Dioxide 24 mmol/L (22-29); Chloride 112 mmol/L (96-108); Creatinine Clr Calc Pharmacy 125.1; Estimated Glomerular Filt Rate > 60; Glucose Random 88 mg/dL (60-115); Potassium 3.7 mmol/L (3.3-5.1); Sodium 144 mmol/L (135-145)
--- NOTE | 2021-08-19 11:23 | P.PNIM_ITS ---
Subjective Subjective Date of Service: 08/19/21 Interval History: Patient seen and examined at bedside. Reports improvement of her chest pain. Has no abdominal pain nausea or vomiting. She denies any shortness of breath at this time. Has been eating and drinking well. No constipation or diarrhea. No urinary symptoms. Review of Systems Review of Systems: Yes all other systems are reviewed and are negative Physical Exam Vital Signs: Vital Signs: Last Vital Signs Temp 97.4 F 08/19/21 08:00 Pulse 63 08/19/21 08:00 Resp 20 08/19/21 08:00 BP 118/67 08/19/21 08:00 Pulse Ox 95 08/19/21 08:00 BMI result Body Mass Index 27.4 Const: General: cooperative and no acute distress Orientation/consciousness: patient oriented x3 Resp: Effort & Inspection: normal respiratory effort Auscultation: clear to auscultation bilaterally Cardio: Rate: regular rate Rhythm: regular rhythm GI: Palpation (GI): Soft to palpation Auscultation: normal bowel sounds Neuro: General: patient oriented x3 Extrem: General: Yes normal to inspection and Yes no pedal edema Objective Data Active Medications Amitriptyline HCl (Amitriptyline Hcl 25 Mg Tablet) 25 mg PO BEDTIME [facility] Last Admin: 08/18/21 21:11 Dose: 25 mg Documented by: JADON Aspirin (Aspirin 81 Mg Tab.Chew) 81 mg PO DAILY [facility] Last Admin: 08/19/21 07:30 Dose: 81 mg Documented by: JACQUELINE Enoxaparin Sodium (Enoxaparin Sodium 80 Mg/0.8 Ml Syringe) 75 mg 1 mg/kg (75 mg) SUBCUT Q12H [facility] Last Admin: 08/19/21 05:47 Dose: 75 mg Documented by: BLAKE Ceftriaxone Sodium 1 gm/ (Sodium Chloride) 50 mls @ 100 mls/hr IV DAILY [facility] Last Infusion: 08/19/21 08:54 Dose: 0 mls/hr Documented by: JACQUELINE Doxycycline Hyclate 100 mg/ (Sodium Chloride) 250 mls @ 166.67 mls/hr IV Q12H [facility] Last Infusion: 08/19/21 09:21 Dose: 0 mls/hr Documented by: JACQUELINE Methadone HCl (Methadone Hcl 20 Mg/2 Ml Oral.Conc) 130 mg PO DAILY [facility] Last Admin: 08/19/21 07:30 Dose: 130 mg Documented by: JACQUELINE Metronidazole (Metronidazole 500 Mg Tablet) 500 mg PO Q12H [facility] Stop: 08/24/21 18:14 Last Admin: 08/19/21 05:47 Dose: 500 mg Documented by: BLAKE Omeprazole (Omeprazole 40 Mg Capsule.Dr) 40 mg PO DAILY@0630 [facility] Last Admin: 08/19/21 05:47 Dose: 40 mg Documented by: BLAKE Pharmacy Consult (Consult Rx Perform Med Rec) 1 each MISCELLANE ONCE PRN PRN Reason: Consult order Prednisone (Prednisone 20 Mg Tablet) 20 mg PO DAILY [facility] Last Admin: 08/19/21 07:29 Dose: 20 mg Documented by: JACQUELINE Sodium Chloride (0.9 % Sodium Chloride Flush 3 Ml Syringe) 3 ml IVFLUSH QSHIFT [facility] Last Admin: 08/19/21 07:30 Dose: 3 ml Documented by: JACQUELINE Labs CBC & Chem 7: 08/19/21 08:32 08/19/21 08:32 Labs: Laboratory Results - last 24 hr 08/19/21 08/19/21 08:32 08:32 MCV 90.4 MCH 28.9 MCHC 32.0 RDW 12.8 Plt Count 288 MPV 9.3 L Immature Gran % (Auto) 0.4 Neut % (Auto) 58.8 Lymph % (Auto) 33.7 Quay % (Auto) 5.3 Eos % (Auto) 1.7 Baso % (Auto) 0.1 Lymph # (Auto) 2.4 Quay # (Auto) 0.4 Eos # (Auto) 0.1 Baso # (Auto) 0.0 Abs Immat Gran (auto) 0.03 Absolute Neuts (auto) 4.2 Absolute Nucleated RBC 0.000 Nucleated RBC % (auto) 0.0 Anion Gap 12 Estim Creat Clear Calc 125.1 Estimated GFR > 60 Random Glucose 88 Calcium 8.4 Microbiology Microbiology Results: Microbiology 08/17/21 Unknown Urine Culture - Final Urine clean catch - Urine cunningham top 08/17/21 13:28 Blood Culture - Preliminary Blood - Venous No growth after 24 hours. 08/17/21 13:19 Blood Culture - Preliminary Blood - Venous No growth after 24 hours. Assessment and Plan (1) Abnormal ECG: Status: Acute (2) Chest pain: Status: Acute (3) Dyspnea: Status: Acute (4) Pneumonia: Status: Acute (5) Trichomonal infection: Status: Acute (6) UTI (urinary tract infection): Status: Acute (7) NSTEMI (non-ST elevated myocardial infarction): Status: Acute Assessment and Plan: 31-year-old female with SLE who presents to the hospital with complaints of abdominal pain, chest pain, shortness of breath found to have pneumonia as well as abnormal ekg findigns # chest pain - NSTEMI - EKG showed some lateral lead ST depressions and t-wave inversions, 2 sets of troponin were negative - rpt EKG showed resolution of above changes - Echo showed no sig abnormality with EF of 55-60% - Cardiology evaluated pt, given the ekg changes pt started on therapeutic lovenox for NSTEMI - cardiology plan for transfer to [facility]-depending on clinical status for cardiac cath next week if develops chest discomfort again. - ASA daily #CAP - presented with dyspnea - CTA showed bilateral lower lobe airpsace ds - on abx day 3 - conitnue - COVID -ve - Incentive spirometry # abd pain - unclear etiology possibly related to umbilucal hernia - resolved - abd CT -ve for any acute problems # Trichomonas ?Flagyl 500 b.i.d. for 7 days- day 3 # asymptomatic UTI - pt on abx as above # chronic opiate dependence ?reports recent heroin use ?restarted methadone # SLE ?on chronic steroids, will increase dose for stress ?needs outpatient Rheumatology for steroid sparing agents DCT ppx: Lovenox Quality Stroke Does the patient have a stroke diagnosis?: No VTE Prior VTE?: No VTE Risk Level:: Medical - moderate - high VTE Device Contraindication: Treatment Not Indicated VTE Drug Contraindication: N/A - Med Ordered
--- NOTE | 2021-08-19 11:42 | PM.PNCARD ---
Subjective Subjective Date of Service: 08/19/21 Interval history: On antibiotics. She is saying that for 3 months she is getting exertional chest heaviness. she is saying she is getting similar symptoms with minimal exertion. On admission she had dynamic EKG changes. Has been on Lovenox at this stage. Physical Exam Vital Signs: Last Vital Signs Temp 97.4 F 08/19/21 08:00 Pulse 63 08/19/21 08:00 Resp 20 08/19/21 08:00 BP 118/67 08/19/21 08:00 Pulse Ox 95 08/19/21 08:00 BMI result Body Mass Index 27.4 GENERAL APPEARANCE: In no acute distress. NECK: No JVD SKIN: no suspicious lesions, warm and dry. HEART: no murmurs,rregular rate and rhythm. LUNGS: CTABL ABDOMEN: soft, nontender. EXTREMITIES: No edema. PERIPHERAL PULSES: equal. NEUROLOGIC: No gross deficits, AAO X 3 Objective Labs and Meds Result diagrams: 08/19/21 08:32 08/19/21 08:32 Lab results: Laboratory Results - last 24 hr 08/19/21 08/19/21 08:32 08:32 WBC 7.2 RBC 3.74 L Hgb 10.8 L Hct 33.8 L MCV 90.4 MCH 28.9 MCHC 32.0 RDW 12.8 Plt Count 288 MPV 9.3 L Immature Gran % (Auto) 0.4 Neut % (Auto) 58.8 Lymph % (Auto) 33.7 [place] % (Auto) 5.3 Eos % (Auto) 1.7 Baso % (Auto) 0.1 Lymph # (Auto) 2.4 [place] # (Auto) 0.4 Eos # (Auto) 0.1 Baso # (Auto) 0.0 Abs Immat Gran (auto) 0.03 Absolute Neuts (auto) 4.2 Absolute Nucleated RBC 0.000 Nucleated RBC % (auto) 0.0 Sodium 144 Potassium 3.7 Chloride 112 H Carbon Dioxide 24 Anion Gap 12 BUN 8 L Creatinine 0.63 Estim Creat Clear Calc 125.1 Estimated GFR > 60 Random Glucose 88 Calcium 8.4 Progress Note: A&P Assessment and plan (1) Unstable angina: Status: Acute Assessment and Plan: 31-year-old female who is presenting for atypical chest pains. She also has been diagnosed with pneumonia. She has been experiencing exertional chest pressure for 3 months. She also has dyspnea on exertion ongoing for a year. she has background of heroin abuse. She has never injected herself and usually snorts heroin. Was also on methadone for him. I had a detailed discussion with her that her symptoms are concerning for coronary disease. So for her workup including echocardiography has been normal. There is no evidence of pulmonary embolism, RV dysfunction pulmonary hypertension. I think we continue Lovenox and potentially transfer her on Saturday for cardiac catheterization on Saturday. continue baby aspirin. Fall Risk Details Current Medications: Current Medications Amitriptyline HCl (Amitriptyline Hcl 25 Mg Tablet) 25 mg PO BEDTIME [facility] Last Admin: 08/18/21 21:11 Dose: 25 mg Documented by: Aspirin (Aspirin 81 Mg Tab.Chew) 81 mg PO DAILY [facility] Last Admin: 08/19/21 07:30 Dose: 81 mg Documented by: Enoxaparin Sodium (Enoxaparin Sodium 80 Mg/0.8 Ml Syringe) 75 mg 1 mg/kg (75 mg) SUBCUT Q12H [facility] Last Admin: 08/19/21 05:47 Dose: 75 mg Documented by: Ceftriaxone Sodium 1 gm/ (Sodium Chloride) 50 mls @ 100 mls/hr IV DAILY [facility] Last Infusion: 08/19/21 08:54 Dose: Infused Documented by: Doxycycline Hyclate 100 mg/ (Sodium Chloride) 250 mls @ 166.67 mls/hr IV Q12H [facility] Last Infusion: 08/19/21 09:21 Dose: Infused Documented by: Methadone HCl (Methadone Hcl 20 Mg/2 Ml Oral.Conc) 130 mg PO DAILY [facility] Last Admin: 08/19/21 07:30 Dose: 130 mg Documented by: Metronidazole (Metronidazole 500 Mg Tablet) 500 mg PO Q12H [facility] Stop: 08/24/21 18:14 Last Admin: 08/19/21 05:47 Dose: 500 mg Documented by: Omeprazole (Omeprazole 40 Mg Capsule.) 40 mg PO DAILY@0630 [facility] Last Admin: 08/19/21 05:47 Dose: 40 mg Documented by: Pharmacy Consult (Consult Rx Perform Med Rec) 1 each MISCELLANE ONCE PRN PRN Reason: Consult order Prednisone (Prednisone 20 Mg Tablet) 20 mg PO DAILY [facility] Last Admin: 08/19/21 07:29 Dose: 20 mg Documented by: Sodium Chloride (0.9 % Sodium Chloride Flush 3 Ml Syringe) 3 ml IVFLUSH QSHIFT [facility] Last Admin: 08/19/21 07:30 Dose: 3 ml Documented by: Time Spent With Patient Time: Total time spent is greater than 50% in coordination of care (as documented) at patient's floor/unit and/or counseling patient: Time with patient: 15 - 24 minutes Progress Note: Quality Stroke Does the patient have a stroke diagnosis?: No Procedures Date of Service Date of Service: 08/19/21
[2021-08-19] MEDS: Nicotine 14 MG PATCH.TD24 TRANSDERMA (17:58)
--- NOTE | 2021-08-19 18:18 | PC.NURSE ---
Pt alert and oriented x3. Pt continues with IV ABT therapy. Pt was a agitated due to having cigarette graving and that nobpdy is letting her go out and smoke. ROSSY George notified. Nicotine patch was ordered and administered with good effect.
[2021-08-19] MEDS: Amitriptyline HCl 25 MG TABLET PO (19:55)
[2021-08-19] MEDS: oxyCODONE HCl Immed Release 5 MG TABLET 10 MG PO (19:55)
[2021-08-19] MEDS: Doxycycline Hyclate 100 MG in 0.9 % Sodium Chloride 250 ML 166.67 MG IV (19:56)
--- NOTE | 2021-08-20 | ECG_ITS ---
Test Reason : chest pain Blood Pressure : / mmHG Vent. Rate : 061 BPM Atrial Rate : 061 BPM P-R Int : 168 ms QRS Dur : 086 ms QT Int : 368 ms P-R-T Axes : 021 066 063 degrees QTc Int : 370 ms Normal sinus rhythm Nonspecific ST and T wave abnormality Abnormal ECG When compared with ECG of 18-AUG-2021 12:50, QT has shortened Referred By: Alphonso Mosqueda Electronically Signed By:CJ PALMA MD
[2021-08-20 03:14] VITALS: BP 140/82; PULSE 74; RESP 20; TEMP 37; O2SAT 98
[2021-08-20] MEDS: oxyCODONE HCl Immed Release 5 MG TABLET 10 MG PO ×2 (05:30→22:48)
[2021-08-20] MEDS: Omeprazole 40 MG CAPSULE.DR PO (05:30)
[2021-08-20] MEDS: metroNIDAZOLE 500 MG TABLET PO ×2 (05:30→16:24)
[2021-08-20] MEDS: Nicotine 14 MG PATCH.TD24 TRANSDERMA (07:14)
[2021-08-20] MEDS: Aspirin 81 MG TAB.CHEW PO (07:15)
[2021-08-20] MEDS: methADONE HCl 20 MG/2 ML ORAL.CONC 130 MG PO (07:15)
[2021-08-20] MEDS: predniSONE 20 MG TABLET PO (07:15)
[2021-08-20] MEDS: cefTRIAXone sodium 1 GM in 0.9 % Sodium Chloride 50 ML IV (07:15)
[2021-08-20] MEDS: Doxycycline Hyclate 100 MG in 0.9 % Sodium Chloride 250 ML 166.6 MG IV (07:16)
[2021-08-20] MEDS: 0.9 % Sodium Chloride Flush 3 ML SYRINGE IVFLUSH ×3 (07:17→22:06)
[2021-08-20] MEDS: ondansetron HCL 4 MG/2 ML VIAL IVPUSH ×2 (07:22→17:50)
[2021-08-20 08:00] VITALS: BP 119/78; PULSE 73; RESP 20; TEMP 36.3; O2SAT 96
[2021-08-20 10:52] LABS: Troponin-I High Sensitivity 4.3 ng/L (<3.5-17.0)
[2021-08-20 10:56] LABS: Anion Gap 10 (12-20); Blood Urea Nitrogen 6 mg/dL (9-16); Calcium 8.6 mg/dL (8.4-10.2); Carbon Dioxide 27 mmol/L (22-29); Chloride 107 mmol/L (96-108); Creatinine Clr Calc Pharmacy 125.1; Estimated Glomerular Filt Rate > 60; Glucose Random 68 mg/dL (60-115); Magnesium 1.6 mg/dL (1.6-2.6); Potassium 3.3 mmol/L (3.3-5.1); Sodium 141 mmol/L (135-145)
[2021-08-20] MEDS: polyethylene glycoL 3350 17 GM POWD.PACK PO (11:13)
[2021-08-20] MEDS: Milk of Magnesia 30 ML ORAL.SUSP PO (11:13)
--- NOTE | 2021-08-20 11:15 | P.PNCA_ITS ---
Subjective Subjective Date of Service: 08/20/21 Interval history: She had nausea and vomiting and abdominal pain. Abdominal x- ray has shown severe constipation. Physical Exam Vital Signs: Last Vital Signs Temp 97.3 F 08/20/21 08:00 Pulse 73 08/20/21 08:00 Resp 20 08/20/21 08:00 BP 119/78 08/20/21 08:00 Pulse Ox 96 08/20/21 08:00 BMI result Body Mass Index 27.4 GENERAL APPEARANCE:? In no acute distress. NECK: No JVD SKIN: no suspicious lesions, warm and dry. HEART: no murmurs,rregular rate and rhythm. LUNGS:? CTABL ABDOMEN: soft, nontender. EXTREMITIES:? No edema. PERIPHERAL PULSES: equal. NEUROLOGIC: No gross deficits, AAO X 3 Objective Labs and Meds Result diagrams: 08/19/21 08:32 08/20/21 09:48 Lab results: Laboratory Results - last 24 hr 08/20/21 08/20/21 09:48 09:48 Sodium 141 Potassium 3.3 Chloride 107 Carbon Dioxide 27 Anion Gap 10 L BUN 6 L Creatinine 0.63 Estim Creat Clear Calc 125.1 Estimated GFR > 60 Random Glucose 68 Calcium 8.6 Magnesium 1.6 Troponin I High Sens 4.3 Imaging Radiologist's impression: Impressions KUB X-Ray 08/20/21 09:50 IMPRESSION: Severe constipation and large bowel dilatation similar to previous CT scan. Progress Note: A&P Assessment and plan (1) Unstable angina: Status: Acute (2) Nausea and vomiting: Status: Acute (3) Abnormal ECG: Status: Acute Assessment and Plan: 31-year-old female with lupus who is presenting for chest discomfort. She had transient anterior T-wave inversions. The changes were dynamic. She has been experiencing exertional chest heaviness for the last 2 3 months also has pneumonia and is on antibiotics. Also having nausea vomiting with some concern for constipation may be related to the opiate use. After discussion we have decided to proceed with diagnostic cardiac catheterization on her. We will transfer her tomorrow if her nausea vomiting and abdominal pain improving for potential back for Saturday. Change to heparin drip tomorrow. Thank you for allowing me to participate in the care of your patient. Please feel free to contact me if you have any questions. Fall Risk Details Current Medications: Current Medications Amitriptyline HCl (Amitriptyline Hcl 25 Mg Tablet) 25 mg PO BEDTIME [facility] Last Admin: 08/19/21 19:55 Dose: 25 mg Documented by: Aspirin (Aspirin 81 Mg Tab.Chew) 81 mg PO DAILY [facility] Last Admin: 08/20/21 07:15 Dose: 81 mg Documented by: Enoxaparin Sodium (Enoxaparin Sodium 80 Mg/0.8 Ml Syringe) 75 mg 1 mg/kg (75 mg) SUBCUT Q12H [facility] Last Admin: 08/20/21 04:41 Dose: Not Given Documented by: Ceftriaxone Sodium 1 gm/ (Sodium Chloride) 50 mls @ 100 mls/hr IV DAILY [facility] Last Infusion: 08/20/21 09:13 Dose: Infused Documented by: Doxycycline Hyclate 100 mg/ (Sodium Chloride) 250 mls @ 166.67 mls/hr IV Q12H [facility] Last Infusion: 08/20/21 09:13 Dose: Infused Documented by: Methadone HCl (Methadone Hcl 20 Mg/2 Ml Oral.Conc) 130 mg PO DAILY [facility] Last Admin: 08/20/21 07:15 Dose: 130 mg Documented by: Metronidazole (Metronidazole 500 Mg Tablet) 500 mg PO Q12H [facility] Stop: 08/24/21 18:14 Last Admin: 08/20/21 05:30 Dose: 500 mg Documented by: Nicotine (Nicotine 14 Mg Patch.Td24) 14 mg TRANSDERMA DAILY [facility] Last Admin: 08/20/21 07:14 Dose: 14 mg Documented by: Omeprazole (Omeprazole 40 Mg Capsule.Dr) 40 mg PO DAILY@0630 [facility] Last Admin: 08/20/21 05:30 Dose: 40 mg Documented by: Ondansetron HCl (Ondansetron Hcl 4 Mg/2 Ml Vial) 4 mg IVPUSH Q6H PRN PRN Reason: Nausea Last Admin: 08/20/21 07:22 Dose: 4 mg Documented by: Oxycodone HCl (Oxycodone Hcl Immed Release 5 Mg Tablet) 10 mg PO Q4H PRN PRN Reason: Pain, Mild (Pain Scale 1-3) Last Admin: 08/20/21 05:30 Dose: 10 mg Documented by: Pharmacy Consult (Consult Rx Perform Med Rec) 1 each MISCELLANE ONCE PRN PRN Reason: Consult order Polyethylene Glycol (Polyethylene Glycol 3350 17 Gm Powd.Pack) 17 gm PO DAILY [facility] Last Admin: 08/20/21 11:13 Dose: 17 gm Documented by: Prednisone (Prednisone 20 Mg Tablet) 20 mg PO DAILY [facility] Last Admin: 08/20/21 07:15 Dose: 20 mg Documented by: Sodium Chloride (0.9 % Sodium Chloride Flush 3 Ml Syringe) 3 ml IVFLUSH QSHIFT [facility] Last Admin: 08/20/21 07:17 Dose: 3 ml Documented by: Time Spent With Patient Time: Total time spent is greater than 50% in coordination of care (as documented) at patient's floor/unit and/or counseling patient: Time with patient: 15 - 24 minutes Progress Note: Quality Stroke Does the patient have a stroke diagnosis?: No Procedures Date of Service Date of Service: 08/20/21
--- NOTE | 2021-08-20 11:48 | HO.PM.IMPN ---
Subjective Subjective Date of Service: 08/20/21 Interval History: pt seen and examined at bedside. complaining of nausea and vomiting. she is also experiencing chest pain that is pressure like, non-radiating, no sob. no urinary sx. no leg swelling. Review of Systems Review of Systems: Yes all other systems are reviewed and are negative Physical Exam Vital Signs: Vital Signs: Last Vital Signs Temp 97.3 F 08/20/21 08:00 Pulse 73 08/20/21 08:00 Resp 20 08/20/21 08:00 BP 119/78 08/20/21 08:00 Pulse Ox 96 08/20/21 08:00 BMI result Body Mass Index 27.4 Const: General: cooperative and no acute distress Orientation/consciousness: patient oriented x3 Resp: Effort & Inspection: normal respiratory effort Auscultation: clear to auscultation bilaterally Cardio: Rate: regular rate Rhythm: regular rhythm GI: Palpation (GI): Soft to palpation Auscultation: normal bowel sounds Neuro: General: patient oriented x3 Extrem: General: Yes normal to inspection and Yes no pedal edema Objective Data Active Medications Amitriptyline HCl (Amitriptyline Hcl 25 Mg Tablet) 25 mg PO BEDTIME [facility] Last Admin: 08/19/21 19:55 Dose: 25 mg Documented by: TALI Aspirin (Aspirin 81 Mg Tab.Chew) 81 mg PO DAILY [facility] Last Admin: 08/20/21 07:15 Dose: 81 mg Documented by: JACQUELINE Enoxaparin Sodium (Enoxaparin Sodium 80 Mg/0.8 Ml Syringe) 75 mg 1 mg/kg (75 mg) SUBCUT Q12H [facility] Last Admin: 08/20/21 04:41 Dose: Not Given Documented by: TALI Non-Admin Reason: Patient Refused Ceftriaxone Sodium 1 gm/ (Sodium Chloride) 50 mls @ 100 mls/hr IV DAILY [facility] Last Infusion: 08/20/21 09:13 Dose: 0 mls/hr Documented by: JACQUELINE Doxycycline Hyclate 100 mg/ (Sodium Chloride) 250 mls @ 166.67 mls/hr IV Q12H [facility] Last Infusion: 08/20/21 09:13 Dose: 0 mls/hr Documented by: JACQUELINE Methadone HCl (Methadone Hcl 20 Mg/2 Ml Oral.Conc) 130 mg PO DAILY [facility] Last Admin: 08/20/21 07:15 Dose: 130 mg Documented by: JACQUELINE Metronidazole (Metronidazole 500 Mg Tablet) 500 mg PO Q12H [facility] Stop: 08/24/21 18:14 Last Admin: 08/20/21 05:30 Dose: 500 mg Documented by: TALI Nicotine (Nicotine 14 Mg Patch.Td24) 14 mg TRANSDERMA DAILY [facility] Last Admin: 08/20/21 07:14 Dose: 14 mg Documented by: JACQUELINE Omeprazole (Omeprazole 40 Mg Capsule.Dr) 40 mg PO DAILY@0630 [facility] Last Admin: 08/20/21 05:30 Dose: 40 mg Documented by: TALI Ondansetron HCl (Ondansetron Hcl 4 Mg/2 Ml Vial) 4 mg IVPUSH Q6H PRN PRN Reason: Nausea Last Admin: 08/20/21 07:22 Dose: 4 mg Documented by: JACQUELINE Oxycodone HCl (Oxycodone Hcl Immed Release 5 Mg Tablet) 10 mg PO Q4H PRN PRN Reason: Pain, Mild (Pain Scale 1-3) Last Admin: 08/20/21 05:30 Dose: 10 mg Documented by: TALI Pharmacy Consult (Consult Rx Perform Med Rec) 1 each MISCELLANE ONCE PRN PRN Reason: Consult order Polyethylene Glycol (Polyethylene Glycol 3350 17 Gm Powd.Pack) 17 gm PO DAILY [facility] Last Admin: 08/20/21 11:13 Dose: 17 gm Documented by: JACQUELINE Prednisone (Prednisone 20 Mg Tablet) 20 mg PO DAILY [facility] Last Admin: 08/20/21 07:15 Dose: 20 mg Documented by: JACQUELINE Sodium Chloride (0.9 % Sodium Chloride Flush 3 Ml Syringe) 3 ml IVFLUSH QSHIFT [facility] Last Admin: 08/20/21 07:17 Dose: 3 ml Documented by: JACQUELINE Labs CBC & Chem 7: 08/19/21 08:32 08/20/21 09:48 Labs: Laboratory Results - last 24 hr 08/20/21 08/20/21 09:48 09:48 Anion Gap 10 L Estim Creat Clear Calc 125.1 Estimated GFR > 60 Random Glucose 68 Calcium 8.6 Magnesium 1.6 Troponin I High Sens 4.3 Microbiology Microbiology Results: Microbiology 08/17/21 13:28 Blood Culture - Preliminary Blood - Venous No growth after 48 hours. 08/17/21 13:19 Blood Culture - Preliminary Blood - Venous No growth after 48 hours. 08/17/21 Unknown Urine Culture - Final Urine clean catch - Urine cunningham top Assessment and Plan (1) Unstable angina: Status: Acute (2) NSTEMI (non-ST elevated myocardial infarction): Status: Acute (3) Abnormal ECG: Status: Acute (4) Nausea and vomiting: Status: Acute Assessment and Plan: 31-year-old female with SLE who presents to the hospital with complaints of abdominal pain, chest pain, shortness of breath found to have pneumonia as well as abnormal ekg findigns # chest pain/unstable angina - EKG showed some lateral lead ST depressions and t-wave inversions, 2 sets of troponin were negative - rpt EKG showed resolution of above changes and this am (08/20) showed non-specific changes - Echo showed no sig abnormality with EF of 55-60% - Cardiology evaluated pt, given the ekg changes pt started on therapeutic lovenox for NSTEMI - cardiology [place] [facility] [place] - ASA daily #CAP - presented with dyspnea - CTA showed bilateral lower lobe airpsace ds - on abx day 4 - conitnue - COVID -ve - Incentive spirometry # abd pain/n/v - has sig constiation on abd xray - will start her on miralax daily and give one dose of MoM - follow BMs # Trichomonas ?Flagyl 500 b.i.d. for 7 days- day 4 # asymptomatic UTI - pt on abx as above # chronic opiate dependence ?reports recent heroin use ?restarted methadone # SLE ?on chronic steroids, will increase dose for stress ?needs outpatient Rheumatology for steroid sparing agents DCT ppx: Lovenox Dispo: plan for transfer by cardio [place] [facility] [place] Quality Stroke Does the patient have a stroke diagnosis?: No VTE Prior VTE?: No VTE Risk Level:: Medical - moderate - high VTE Device Contraindication: Treatment Not Indicated VTE Drug Contraindication: N/A - Med Ordered
[2021-08-20 12:00] VITALS: BP 124/70; PULSE 64; RESP 20; TEMP 36.1; O2SAT 95
[2021-08-20 15:45] VITALS: BP 136/79; PULSE 60; RESP 17; TEMP 36.9; O2SAT 96
[2021-08-20] MEDS: Enoxaparin Sodium 80 MG/0.8 ML SYRINGE 75 MG SUBCUT (16:24)
--- NOTE | 2021-08-20 17:06 | PC.NURSE ---
Pt alert and oriented x4. Pt c/O severe ABD pain accompanied with N/V. STAT EKG and KUB obtained. KUB showed severe Constipation. MOM and Miralax ordered and given with no result. notified of luck of BM . Mineral Oil enema ordered and given. EKG showed NSR with HR in the 80s.
[2021-08-20] MEDS: Mineral OiL enema 133 ML ENEMA PR (17:47)
[2021-08-20 19:42] VITALS: BP 118/70; PULSE 76; RESP 19; TEMP 36.3; O2SAT 96
[2021-08-20] MEDS: Amitriptyline HCl 25 MG TABLET PO (22:05)
[2021-08-20 23:52] VITALS: BP 120/77; PULSE 75; RESP 19; TEMP 36.1; O2SAT 96
[2021-08-21 04:00] VITALS: PULSE 75; TEMP 36.6; O2SAT 96
[2021-08-21] MEDS: metroNIDAZOLE 500 MG TABLET PO (06:02)
[2021-08-21] MEDS: Omeprazole 40 MG CAPSULE.DR PO (06:02)
[2021-08-21] MEDS: oxyCODONE HCl Immed Release 5 MG TABLET 10 MG PO ×2 (07:35→11:20)
[2021-08-21] MEDS: predniSONE 20 MG TABLET PO (07:36)
[2021-08-21] MEDS: methADONE HCl 20 MG/2 ML ORAL.CONC 130 MG PO (07:36)
[2021-08-21] MEDS: Doxycycline Hyclate 100 MG in 0.9 % Sodium Chloride 250 ML 166.67 MG IV (07:37)
[2021-08-21] MEDS: Nicotine 14 MG PATCH.TD24 TRANSDERMA (07:37)
[2021-08-21] MEDS: Aspirin 81 MG TAB.CHEW PO (07:37)
[2021-08-21] MEDS: 0.9 % Sodium Chloride Flush 3 ML SYRINGE IVFLUSH (07:37)
[2021-08-21] MEDS: polyethylene glycoL 3350 17 GM POWD.PACK PO (07:38)
[2021-08-21 08:00] VITALS: BP 120/60; PULSE 100; RESP 20; TEMP 36.2; O2SAT 95
--- NOTE | 2021-08-21 09:30 | P.PNIM_ITS ---
Subjective Subjective Date of Service: 08/21/21 Interval History: cc: abd pain, chest pain interval history: constipation, no bm even after enema, chest pain resolved Respiratory Respiratory: Reports no additional respiratory complaints Gastrointestinal Gastrointestinal: Reports no additional gastrointestinal complaints Physical Exam Vital Signs: Vital Signs: Last Vital Signs Temp 97.1 F 08/21/21 08:00 Pulse 100 08/21/21 08:00 Resp 20 08/21/21 08:00 BP 120/60 08/21/21 08:00 Pulse Ox 95 08/21/21 08:00 BMI result Body Mass Index 27.4 General: AO X 3, no acute distress Resp: CTA bilateral, no accessory muscles used CVS: S1,S2,RRR GI: soft, non tender, non distended Neuro: motor grossly intact, alert Psych: appropriate affect, appropriate insight Objective Data Active Medications Amitriptyline HCl (Amitriptyline Hcl 25 Mg Tablet) 25 mg PO BEDTIME [facility] Last Admin: 08/20/21 22:05 Dose: 25 mg Documented by: STANISLAW Aspirin (Aspirin 81 Mg Tab.Chew) 81 mg PO DAILY [facility] Last Admin: 08/21/21 07:37 Dose: 81 mg Documented by: JACLYN Enoxaparin Sodium (Enoxaparin Sodium 80 Mg/0.8 Ml Syringe) 75 mg 1 mg/kg (75 mg) SUBCUT Q12H [facility] Last Admin: 08/21/21 04:43 Dose: Not Given Documented by: STANISLAW Non-Admin Reason: Patient Refused Ceftriaxone Sodium 1 gm/ (Sodium Chloride) 50 mls @ 100 mls/hr IV DAILY [facility] Last Infusion: 08/20/21 09:13 Dose: 0 mls/hr Documented by: JACQUELINE Doxycycline Hyclate 100 mg/ (Sodium Chloride) 250 mls @ 166.67 mls/hr IV Q12H [facility] Last Admin: 08/21/21 07:37 Dose: 166.67 mls/hr Documented by: JACLYN Methadone HCl (Methadone Hcl 20 Mg/2 Ml Oral.Conc) 130 mg PO DAILY [facility] Last Admin: 08/21/21 07:36 Dose: 130 mg Documented by: JACLYN Metronidazole (Metronidazole 500 Mg Tablet) 500 mg PO Q12H [facility] Stop: 08/24/21 18:14 Last Admin: 08/21/21 06:02 Dose: 500 mg Documented by: STANISLAW Nicotine (Nicotine 14 Mg Patch.Td24) 14 mg TRANSDERMA DAILY [facility] Last Admin: 08/21/21 07:37 Dose: 14 mg Documented by: JACLYN Omeprazole (Omeprazole 40 Mg Capsule.Dr) 40 mg PO DAILY@0630 [facility] Last Admin: 08/21/21 06:02 Dose: 40 mg Documented by: STANISLAW Ondansetron HCl (Ondansetron Hcl 4 Mg/2 Ml Vial) 4 mg IVPUSH Q6H PRN PRN Reason: Nausea Last Admin: 08/20/21 17:50 Dose: 4 mg Documented by: JACQUELINE Oxycodone HCl (Oxycodone Hcl Immed Release 5 Mg Tablet) 10 mg PO Q4H PRN PRN Reason: Pain, Mild (Pain Scale 1-3) Last Admin: 08/21/21 07:35 Dose: 10 mg Documented by: JACLYN Pharmacy Consult (Consult Rx Perform Med Rec) 1 each MISCELLANE ONCE PRN PRN Reason: Consult order Polyethylene Glycol (Polyethylene Glycol 3350 17 Gm Powd.Pack) 17 gm PO DAILY [facility] Last Admin: 08/21/21 07:38 Dose: 17 gm Documented by: JACLYN Prednisone (Prednisone 20 Mg Tablet) 20 mg PO DAILY [facility] Last Admin: 08/21/21 07:36 Dose: 20 mg Documented by: JACLYN Sodium Chloride (0.9 % Sodium Chloride Flush 3 Ml Syringe) 3 ml IVFLUSH QSHIFT [facility] Last Admin: 08/21/21 07:37 Dose: 3 ml Documented by: JACLYN Labs CBC & Chem 7: 08/19/21 08:32 08/20/21 09:48 Labs: Laboratory Results - last 24 hr 08/20/21 08/20/21 09:48 09:48 Anion Gap 10 L Estim Creat Clear Calc 125.1 Estimated GFR > 60 Random Glucose 68 Calcium 8.6 Magnesium 1.6 Troponin I High Sens 4.3 Assessment and Plan (1) Unstable angina: Status: Acute (2) NSTEMI (non-ST elevated myocardial infarction): Status: Acute (3) Abnormal ECG: Status: Acute (4) Nausea and vomiting: Status: Acute Assessment and Plan: 31-year-old female with SLE who presented to the hospital with complaints of abdominal pain, chest pain, shortness of breath found to have pneumonia as well as abnormal ekg findings chest pain/unstable angina - EKG showed some lateral lead ST depressions and t-wave inversions, 2 sets of troponin were negative - rpt EKG showed resolution of above changes - Echo showed no sig abnormality with EF of 55-60% - Cardiology evaluated pt, given the ekg changes pt started on therapeutic lovenox for NSTEMI - cardiology [place] [facility] [place] ASA daily bibasilar opacities likely atelectasis due to poor inspiratory effort from abdominal pain, cannot rule out pneumonia continue empiric ceftriaxone and doxy day 5 abd pain/n/v - has significant constipation on abd xray cotinue miralax, will give another enema Trichomonas ?Flagyl 500 b.i.d. for 7 days- day 5 chronic opiate dependence methadone SLE ?on chronic steroids ?needs outpatient Rheumatology for steroid sparing agents DCT ppx: Lovenox Quality Stroke Does the patient have a stroke diagnosis?: No VTE Prior VTE?: No VTE Risk Level:: Medical - moderate - high VTE Device Contraindication: Treatment Not Indicated VTE Drug Contraindication: N/A - Med Ordered
[2021-08-21] MEDS: cefTRIAXone sodium 1 GM in 0.9 % Sodium Chloride 50 ML IV (09:55)
[2021-08-21] MEDS: Mineral OiL enema 133 ML ENEMA PR (11:20)
[2021-08-21 12:00] VITALS: BP 136/85; PULSE 100; RESP 20; TEMP 36; O2SAT 97
--- NOTE | 2021-08-21 12:21 | PM.DS ---
DS: Providers Provider Date of Service: 08/21/21 Date of admission: 08/17/21 18:11 Primary care physician: Alfonzo Rouse MD Consults: 08/17/21 18:01 Consult to Cardiology Stat Consulting Provider: Alphonso Mosqueda Reason for consultation: EKG changes,CP DS: Diagnosis Discharge Diagnosis (1) Unstable angina: Status: Acute (2) NSTEMI (non-ST elevated myocardial infarction): Status: Acute (3) Abnormal ECG: Status: Acute (4) Nausea and vomiting: Status: Acute DS: Summary Hospital Course Hospital Course: patient was amditted for chest pain with EKG changes. troponins were negative, she was seen by cardiology who felt this should be treated as unstable angina, was given asa, therapeutic lovenox, echo was unremarkable. plan is to transfer to [facility] for cardiac cath. course was complicated by constipation, patient was given mirlax, unsuccessful enema. patient refused futher intervention. she was noted to have trichmonas in urine and has been started on flagyl, today is day 11/02. she was also noted to have bibasilar opaicities, likely due to atelectasis +/- aspiration penumonitis from abdominal pain with vomitting. she was empirically treated with rocephin and doxycyline. patient notes she is on chronic steroids for her SLE. she should follow up with a security assurance analyst to transition to steroid sparing agent. Time Spent with Patient Time attestation: Total time spent providing and/or coordinating discharge services: Discharge coordination time: Greater than 30 minutes Quality: Stroke Does the patient have a stroke diagnosis?: No Physical Exam Vital Signs: Vital Signs: Last Vital Signs Temp 97.1 F 08/21/21 08:00 Pulse 100 08/21/21 08:00 Resp 08/21/21 08:00 BP 120/60 08/21/21 08:00 Pulse Ox 95 08/21/21 08:00 BMI result Body Mass Index 27.4 General: AO X 3, no acute distress Resp: CTA bilateral, no accessory muscles used CVS: S1,S2,RRR GI: soft, non tender, non distended Neuro: motor grossly intact, alert Psych: appropriate affect, appropriate insight DS: Data Data Completed and Pending Labs on day of discharge: Preliminary micro results at discharge 08/17/21 13:28 Blood Culture - Preliminary Blood - Venous No growth after 48 hours. 08/17/21 13:19 Blood Culture - Preliminary Blood - Venous No growth after 48 hours. Discharge Plan Discharge Patient Disposition: er Acute Care Hospital Discharge Diagnosis: unstable angina, ?pneumonia, constipation, trichmonas Referrals: Alfonzo Rouse MD [Primary Care Provider] - 1 Week Discharge Medications: New metronidazole 500 mg Tablet 500 mg PO Q12H Qty: 0 RF: 0 ceftriaxone 1 gram Recon Soln 1 g IV DAILY Qty: 0 RF: 0 doxycycline hyclate [Doxy-100] 100 mg Recon Soln 100 mg IV Q12H Qty: 0 RF: 0 nicotine 14 mg/24 hr Patch 24 Hour 14 mg transdermal DAILY Qty: 0 RF: 0 polyethylene glycol 3350 17 gram Powder In Packet 17 g PO DAILY Qty: 0 RF: 0 omeprazole 40 mg Capsule,Delayed Release(Dr/Ec) 40 mg PO DAILY@0630 Qty: 0 RF: 0 aspirin 81 mg Tablet,Chewable 81 mg PO DAILY Qty: 0 RF: 0 enoxaparin 80 mg/0.8 mL Syringe 75 mg subcut Q12H Qty: 0 RF: 0 Continued prednisone 5 mg tablet 10 mg PO DAILY RF: 0 amitriptyline 10 mg tablet 25 - 75 mg PO BEDTIME RF: 0 methadone [Methadone Intensol] 10 mg/mL Concentrate 132 mg PO DAILY RF: 0 Diet: advance to usual diet Activity on Discharge: As tolerated Stand Alone Forms: Patient Portal Discharge page Care Plan Goals: work up chest pain Health Concerns: unstable angina, ?pna, trichomonas, constipation Plan of Treatment: transfer to [facility] for cardiac cath, continue antibiotics for possible pna and trichomonas, miralax for constipation, follow up with rheumatology to transistion from prednisone to steroid sparing agent Assessment: see above
--- NOTE | 2021-08-21 14:48 | MHC.CM.PN ---
PATIENT IS A TRANSFER TO [facility]
--- NOTE | 2021-08-21 14:54 | PM.PNCARD ---
Subjective Subjective Date of Service: 08/21/21 Principal diagnosis: Unstable angina Interval history: Patient's nausea and vomiting is improved. No recurrent chest pain. Troponins are negative. EKG shows some dynamic changes in anterior leads Review of Systems Review of Systems Yes all other systems are reviewed and are negative Physical Exam Vital Signs: Last Vital Signs Temp 96.8 F 08/21/21 12:00 Pulse 100 08/21/21 12:00 Resp 20 08/21/21 12:00 BP 136/85 08/21/21 12:00 Pulse Ox 97 08/21/21 12:00 BMI result Body Mass Index 27.4 Const General: cooperative, comfortable, no acute distress, alert and awake Nutritional Appearance: average body habitus Orientation/consciousness: patient oriented x3 Neck Neck: Yes trachea midline, Yes supple and Yes no JVD Resp Effort & Inspection: normal respiratory effort Auscultation: clear to auscultation bilaterally Cardio Jugular venous distension: no JVD Palpation: normal PMI Rate: regular rate Rhythm: regular rhythm Heart sounds: S1 normal heart sound present, S2 normal heart sound present, no click, no gallops and no murmurs GI Auscultation: normal bowel sounds Neuro General: patient oriented x3 and no focal motor deficits Extrem General: Yes no clubbing, cyanosis or edema Objective Labs and Meds Result diagrams: 08/19/21 08:32 08/20/21 09:48 Progress Note: A&P Assessment and plan (1) Unstable angina: Status: Acute Assessment and Plan: Unstable angina with dynamic EKG changes but without any abnormal by a myocarditis. Possible that this could be related to underlying coronary artery disease related underlying connective tissue disease. This was discussed with her. Being transferred to [facility] [place] for cardiac catheterization. Patient was explained the risks, benefits, alternatives 2nd opinion procedure. She understands agrees. Further treatment based on the findings of cardiac catheterization. Continue current medical management. Fall Risk Details Current Medications: Current Medications Amitriptyline HCl (Amitriptyline Hcl 25 Mg Tablet) 25 mg PO BEDTIME [facility] Last Admin: 08/20/21 22:05 Dose: 25 mg Documented by: Aspirin (Aspirin 81 Mg Tab.Chew) 81 mg PO DAILY [facility] Last Admin: 08/21/21 07:37 Dose: 81 mg Documented by: Enoxaparin Sodium (Enoxaparin Sodium 80 Mg/0.8 Ml Syringe) 75 mg 1 mg/kg (75 mg) SUBCUT Q12H [facility] Last Admin: 08/21/21 04:43 Dose: Not Given Documented by: Ceftriaxone Sodium 1 gm/ (Sodium Chloride) 50 mls @ 100 mls/hr IV DAILY [facility] Last Infusion: 08/21/21 10:43 Dose: Infused Documented by: Doxycycline Hyclate 100 mg/ (Sodium Chloride) 250 mls @ 166.67 mls/hr IV Q12H [facility] Last Infusion: 08/21/21 09:58 Dose: Infused Documented by: Methadone HCl (Methadone Hcl 20 Mg/2 Ml Oral.Conc) 130 mg PO DAILY [facility] Last Admin: 08/21/21 07:36 Dose: 130 mg Documented by: Metronidazole (Metronidazole 500 Mg Tablet) 500 mg PO Q12H [facility] Stop: 08/24/21 18:14 Last Admin: 08/21/21 06:02 Dose: 500 mg Documented by: Nicotine (Nicotine 14 Mg Patch.Td24) 14 mg TRANSDERMA DAILY [facility] Last Admin: 08/21/21 07:37 Dose: 14 mg Documented by: Omeprazole (Omeprazole 40 Mg Capsule.Dr) 40 mg PO DAILY@0630 [facility] Last Admin: 08/21/21 06:02 Dose: 40 mg Documented by: Ondansetron HCl (Ondansetron Hcl 4 Mg/2 Ml Vial) 4 mg IVPUSH Q6H PRN PRN Reason: Nausea Last Admin: 08/20/21 17:50 Dose: 4 mg Documented by: Oxycodone HCl (Oxycodone Hcl Immed Release 5 Mg Tablet) 10 mg PO Q4H PRN PRN Reason: Pain, Mild (Pain Scale 1-3) Last Admin: 08/21/21 11:20 Dose: 10 mg Documented by: Pharmacy Consult (Consult Rx Perform Med Rec) 1 each MISCELLANE ONCE PRN PRN Reason: Consult order Polyethylene Glycol (Polyethylene Glycol 3350 17 Gm Powd.Pack) 17 gm PO DAILY [facility] Last Admin: 08/21/21 07:38 Dose: 17 gm Documented by: Prednisone (Prednisone 20 Mg Tablet) 20 mg PO DAILY [facility] Last Admin: 08/21/21 07:36 Dose: 20 mg Documented by: Sodium Chloride (0.9 % Sodium Chloride Flush 3 Ml Syringe) 3 ml IVFLUSH QSHIFT [facility] Last Admin: 08/21/21 07:37 Dose: 3 ml Documented by: Time Spent With Patient Time: Total time spent is greater than 50% in coordination of care (as documented) at patient's floor/unit and/or counseling patient: Time with patient: 15 - 24 minutes Progress Note: Quality Stroke Does the patient have a stroke diagnosis?: No Procedures Date of Service Date of Service: 08/21/21
--- NOTE | 2021-08-21 15:24 | MHC.CM.PN ---
THIS PINION STAKER MET WITH PATIENT WHO WANTS TO LEAVE AND NOT GO TO [facility] SHE REPORTS I HAVE ALOT GOING ON AND I CAN FOLLOW UP ON MY OWN WHEN ASKED IF SHE UNDERSTANDS THE RISKS TOLD TO HER,SHE GREES. WHEN ASKED IF PATIENT FEELS SAFE, SHE AGREES. WHEN ASKED IF PATIENT FEELS ANYONE MAY TRY TO HURT HER, SHE DENIES. [facility] CONTACT INFO GIVEN IN THE EVENT PATIENT FEELS THE NEED TO RETURN TO HOSPITAL SETTING FOR CARDIAC ISSUES IT WAS ADVISED THAT SHE EXPLAIN SHE LEFT AMA FROM PLAN TO TRANSFER TO THAT FACILITY TODAY.
--- NOTE | 2021-08-21 15:34 | PC.NURSE ---
This nurse entered patients room with her declaring she wanted to go home . I explained that I was entering because her HR was in the 140's and that the ambulance for discharge to [facility] would be coming to bring her. She still insisted she needed to go home . This nurse asked if there was anything they could do for her to make her more comfortable here and she refused. This nurse continued to ask why she wanted to go home so urgently but she didn't want to share details. Both the case fitter Ruthie and Dr. Leung were notified, Dr. Leung explaned the risks of leaving against medical advice, patient still wanted to leave. therefore IV was removed, pt signed AMA form and this nurse escorted her to the front entrance so she could catch a bus.
--- NOTE | 2021-08-21 15:40 | PM.EVENT ---
Event Note Date of Service: 08/21/21 Event Note: Was supposed to be going to [facility] for cardiac cath but last minutes refused to go to [facility] not offering any reason other than has to things to deal with at home. Advised that leaving and not having the plan cardiac momo and further testing done can endanger her life with potential health issues, including but not limitted to . She understands these, she was of sound mind and was able to repeat my words by in her own words and accepts the risks of leaving against medical and proceeded to sing out against advise.. RN Tavares Tinoco, SAROJ/LAMBERT Young were present and also attempted to persuade her but unsuccesfull.. She was told to call 911, should she experience any chest pain, shortness of breath, dizziness and other symptoms that may threaten her life.
== END 2021-08-21 15:29 | disposition left against medical advice (07) | DRG 190 ==
LOC: HO.ED 15:58 → HO.EDOVER 18:29 → HO.S3 19:40
PROVIDERS: Internal Medicine; Physician Assistant; Admitting Provider Internal Medicine; Emergency Provider Emergency Medicine Emergency Medical Services; PCP Internal Medicine; Visit Provider Internal Medicine
DX: I21.4 Non-ST elevation (NSTEMI) myocardial infarction (principal); J69.0 Pneumonitis due to inhalation of food and vomit; M32.9 Systemic lupus erythematosus, unspecified; F11.20 Opioid dependence, uncomplicated; F17.210 Nicotine dependence, cigarettes, uncomplicated; A59.9 Trichomoniasis, unspecified; J98.11 Atelectasis; I20.0 Unstable angina; R94.31 Abnormal electrocardiogram [ECG] [EKG]; N39.0 Urinary tract infection, site not specified; Z71.6 Tobacco abuse counseling; Z20.822 Contact with and (suspected) exposure to COVID-19; Z79.82 Long term (current) use of aspirin; Z79.52 Long term (current) use of systemic steroids; Z79.899 Other long term (current) drug therapy
CPT/HCPCS: 0241U; 36415; 71275; 74018; 74177; 76830; 76856; 80048; 80053; 80307; 81001; 81025; 83605; 83690; 83735; 84484; 84702; 85025; 85027; 85379; 85652; 86140; 86803; 87040; 87086; 87389; 87635; 93005; 93306; 96361; 96365; 96367; 96375; 96376; 99285; J0456; J0696; J1650; J1885; J2270; J2405; J2543; Q9967

== ENCOUNTER 2021-08-31 12:28 | Outpatient (REF) | payer OTHER, SELFPAY ==
[2021-08-31 12:49] LABS: COVID-19 Test Negative (Negative)
== END 2021-08-31 12:29 | disposition home or self-care (01) ==
LOC: HO.LAB 12:28
PROVIDERS: PCP Internal Medicine; Visit Provider Internal Medicine Cardiovascular Disease
DX: Z20.822 Contact with and (suspected) exposure to COVID-19 (principal); I21.4 Non-ST elevation (NSTEMI) myocardial infarction; R94.31 Abnormal electrocardiogram [ECG] [EKG]
CPT/HCPCS: 87635

== ENCOUNTER 2021-09-11 12:04 | Outpatient (REF) | payer OTHER, SELFPAY ==
[2021-09-11 12:33] LABS: COVID-19 Test Negative (Negative); IDNOW Serial# 16C4AD1C
== END 2021-09-11 12:05 | disposition home or self-care (01) ==
LOC: HO.LAB 12:04
PROVIDERS: Visit Provider Internal Medicine Cardiovascular Disease
DX: Z20.822 Contact with and (suspected) exposure to COVID-19 (principal)
CPT/HCPCS: 87635; C9803

== ENCOUNTER 2022-03-18 19:00 | Emergency (ER) | payer OTHER, SELFPAY ==
--- NOTE | ~2022-03-18 | CT_ITS ---
EXAMINATION: CT ABDOMEN AND PELVIS WITH CONTRAST CLINICAL INFORMATION: Abdominal pain. COMPARISON: CT abdomen pelvis 08/17/2021 TECHNIQUE: Multidetector volumetric images were obtained from the superior aspect of the liver through the pubic symphysis following administration 85 mL of Omnipaque 350 intravenous contrast. Sagittal and coronal reformatted images were obtained on the technologist's workstation. Oral contrast: No This CT examination was performed using dose optimization techniques as appropriate, variously including the following: *Automated exposure control *Adjustment of mA and/or kV according to patient size (this includes techniques or standardized protocols for targeted exams where dose is matched to indication/reason for exam; i.e. extremities or head) *Use of iterative reconstruction technique DLP: 508 mGy-cm FINDINGS: LUNG BASES: The heart size is normal. The lung bases are clear. There is a small hiatal hernia. LIVER, GALLBLADDER, AND BILIARY TREE: The liver is normal in size, shape, and attenuation. No focal hepatic lesion or biliary ductal dilatation is present. The gallbladder has been surgically removed. The CBD is prominent measuring 1 cm the pancreatic head and 1.2 cm in the fay hepatis and expected findings post cholecystectomy. PANCREAS: Unremarkable. SPLEEN: Unremarkable. ADRENAL GLANDS: Unremarkable. KIDNEYS AND URETERS: The kidneys are normal in size, shape, and attenuation. No hydronephrosis, hydroureter, or calculi seen. No perinephric stranding. There are small hypodense areas in the lower pole right kidney and midpole left kidney, probable small cyst. BLADDER: Unremarkable. GASTROINTESTINAL TRACT: There is large amount of stool seen in the colon without distention. The small bowel loops are normal caliber. Appendix is not visualized with certainty. ABDOMINAL WALL: There is a small umbilical hernia containing intraperitoneal fat and a solitary staple. LYMPH NODES: Normal. VASCULAR: Unremarkable. PELVIC VISCERA: There is no free air or free fluid. The uterus is anteverted within IUD in the endometrial canal in good position.. There is no adnexal mass or abnormal lymphadenopathy. OSSEOUS STRUCTURES: Unremarkable. CT/CT abdomen pelvis w con IMPRESSION: Moderate to severe constipation without obstruction. Small umbilical hernia containing intraperitoneal fat and a solitary staple. There is an IUD within the endometrial canal in correct position. Evidence of cholecystectomy. Probable bilateral renal cysts but no hydronephrosis seen. Fleischner guidelines were followed.
[2022-03-18 19:05] VITALS: BP 116/71; PULSE 92; O2SAT 95
[2022-03-18 19:06] VITALS: BP 103/60; PULSE 98; RESP 18; TEMP 36.5; O2SAT 97; BMI 26.5
--- NOTE | 2022-03-18 22:57 | ED_ITS ---
HPI - Abdominal Pain General Chief Complaint: Abdominal Pain Stated Complaint: hernia Time Seen by Provider: 03/18/22 22:44 Source: patient and old records reviewed Mode of arrival: ambulatory Limitations: no limitations History of Present Illness HPI narrative: 31 yo female hx of UTI, myocarditis states she is recovered, pneumonia reports 2 years ago had cholecystectomy laparascopic comes in with worsening umbilical hernia pain - at this time she reports some mild nausea no constipation + BM today. She cannot reduce the hernia itself today. MD elicited complaint: abdominal pain Pertinent past history: other (known umbilical hernia) Onset (ago): week(s) (1) Pain Consistency: colicky Location: periumbilical Severity: moderate Quality: cramping Radiation: none Migration to: no migration Exacerbating factors: eating and movement Relieving factors: nothing Context: history of similar episodes Associated symptoms: nausea Related Data Home Medications Medication Instructions Recorded Confirmed amitriptyline 10 mg tablet 25 - 75 mg PO BEDTIME 08/17/21 08/17/21 prednisone 5 mg tablet 10 mg PO DAILY 08/17/21 08/17/21 methadone 10 mg/mL oral 132 mg PO DAILY 08/18/21 08/18/21 concentrate (Methadone Intensol) Previous Rx's Medication Instructions Recorded aspirin 81 mg chewable tablet 81 mg PO DAILY #0 tabs 08/21/21 ceftriaxone 1 gram solution for 1 g IV DAILY #0 ea 08/21/21 injection doxycycline hyclate 100 mg 100 mg IV Q12H #0 ea 08/21/21 intravenous powder for solution (Doxy-100) enoxaparin 80 mg/0.8 mL 75 mg (0.75 mL) subcut Q12H #0 mL 08/21/21 subcutaneous syringe metronidazole 500 mg tablet 500 mg PO Q12H #0 tabs 08/21/21 nicotine 14 mg/24 hr daily 14 mg transdermal DAILY #0 ea 08/21/21 transdermal patch omeprazole 40 mg capsule,delayed 40 mg PO DAILY@0630 #0 caps 08/21/21 release polyethylene glycol 3350 17 gram 17 g PO DAILY #0 ea 08/21/21 oral powder packet Allergies Allergy/AdvReac Type Severity Reaction Status Date / Time From REGLAN Allergy Unknown ITCHING Uncoded 04/14/20 18:27 Review of Systems Review of Systems Constitutional : No Weight loss, No Fever, No Chills ENT/Mouth : No sore throat, No Rhinorrhea Eyes: No Swelling, No Redness Cardiovascular : No Chest Pain, No SOB, NoEdema Respiratory : No Cough, No Sputum, No Wheezing Gastrointestinal : Positive Nausea, no Vomiting,no Diarrhea, positive abdominal Pain, No Hematochezia, No Melena Genitourinary : No Dysuria, No Urinary Frequency, No Hematuria, No Urgency Musculoskeletal : No joint pain, No Myalgias, No Joint Swelling Skin : No Skin Lesions, No rash Neuro : No Weakness, No Numbness, No Dizziness, No Headache Psych : No Anxiety/Panic, No Depression Heme/Lymph: No Bruising, No Lymphadenopathy Endocrine : No Polyuria, No Polydipsia All other systems reviewed and are negative. [facility] Past Medical History Attestation statement: The following information was validated with the patient. Medical History Lupus Opiate dependence Surgical History Hx of cholecystectomy Family History Family History Sister SLE (systemic lupus erythematosus related syndrome) Social History Social History Household Members: None Housing: Apartment Alcohol intake: unknown Patient Tobacco Use Status: Tobacco use Unknown Use of substances other than those prescribed or required for medical reasons: Unknown Substance Use Type: Heroin Advance Directives: No Advance Directives Information Provided: No service: No Physical Exam ED Vital Signs: Vital Signs - 24 hr 03/18/22 19:06 03/18/22 23:30 03/19/22 00:00 Temperature 97.7 F 97.7 F Pulse Rate 98 69 Respiratory Rate 18 16 Blood Pressure 103/60 90/56 L 103/60 Pulse Oximetry 97 100 Oxygen Delivery Method Room Air Room Air 03/19/22 01:11 Temperature Pulse Rate 69 Respiratory Rate 18 Blood Pressure 105/64 Pulse Oximetry 99 Oxygen Delivery Method Room Air BMI result Body Mass Index 26.5 Appearance: Alert. Oriented X3. No acute distress. Eyes: Pupils equal, round and reactive to light. ENT: Pharynx normal. Neck: Normal inspection. Neck supple. CVS: Normal heart rate and rhythm. Pulses normal. Respiratory: No respiratory distress. Breath sounds normal. Abdomen: Soft and moderate ttp in hernia site - feels ?fat feeling cannot reduce otherwise abdomen itself is not acute Skin: Skin warm and dry. Normal skin color. Normal skin turgor. Extremities: No lower extremity edema. No calf ttp Neuro: Oriented X 3. No motor deficit. No sensory deficit. Course Course Course Narrative: CT scan showing small umbilical hernia - fat containing otherwise normal at this time no WBC count labs stable can be DC home MDM - Abdominal Pain MDM Narrative Medical decision making narrative: 31 yo female with hx of lupus, opiate dependence, myocarditis - resolved clean cath here with known umbilical hernia now states increased pain and she cannot reduce it at this time labs, CT scan for incarceration/obstruction, IV and IV pain medications ordered. dispo per results and findings. Lab Data Result diagrams: 03/18/22 23:21 03/18/22 23:21 Labs: Lab Results 03/18/22 03/18/22 03/18/22 Range/Units 23:21 23:21 23:21 WBC 4.7 L (4.8-10.8) X10*3/uL RBC 4.25 (4.20-5.50) X10*6/uL Hgb 12.1 (12.0-16.0) g/dl Hct 37.6 (37.0-47.0) % MCV 88.5 (80.0-98.0) fL MCH 28.5 (27.0-33.0) pg MCHC 32.2 (31.0-35.0) g/dl RDW 12.7 (11.0-16.0) % Plt Count 292 (160-400) X10*3/uL MPV 8.7 L (9.4-12.3) fL Immature Gran % (Auto) 0.2 (0.0-0.4) % Neut % (Auto) 44.6 L (45-73) % Lymph % (Auto) 45.8 H (20-40) % Kemper % (Auto) 8.1 (2-11) % Eos % (Auto) 1.1 (0-4) % Baso % (Auto) 0.2 (0-2) % Lymph # (Auto) 2.1 (1.2-4.9) X10*3/uL Kemper # (Auto) 0.4 (0.1-1.2) X10*3/uL Eos # (Auto) 0.1 (0.0-0.4) X10*3/uL Baso # (Auto) 0.0 (0.0-0.2) X10*3/uL Abs Immat Gran (auto) 0.01 (0.00-0.03) X10*3/uL Absolute Neuts (auto) 2.1 (2.0-8.3) x10*3/uL Absolute Nucleated RBC 0.000 (0.0-0.012) X10*3/uL Nucleated RBC % (auto) 0.0 (0.0-0.2) /100WBC Sodium 138 (135-145) mmol/L Potassium 4.4 D (3.3-5.1) mmol/L Chloride 102 (96-108) mmol/L Carbon Dioxide 29 (22-29) mmol/L Anion Gap 11 L (12-20) BUN 11 D (9-16) mg/dL Creatinine 0.70 (0.5-1.4) mg/dL Estim Creat Clear Calc 110.9 Estimated GFR > 60 Random Glucose 101 (60-115) mg/dL Calcium 9.0 (8.4-10.2) mg/dL Magnesium 2.0 (1.6-2.6) mg/dL Total Bilirubin < 0.2 (0.0-1.0) mg/dL Direct Bilirubin < 0.2 (0.0-0.5) mg/dL AST 16 D (5-31) U/L ALT 11 (0-31) U/L Alkaline Phosphatase 95 (39-117) U/L Total Protein 7.8 (6.5-8.0) g/dL Albumin 3.5 (3.5-5.0) g/dL Lipase 10 (8-78) U/L Beta HCG, Quant < 2 mIU/mL COVID-19 (DHARMESH) Negative (Negative) COVID-19 Clin Com See Note Discharge Plan Discharge Clinical Impression: Hernia, umbilical Patient Disposition: Home, Self-Care Instructions: Umbilical Hernia (ED) Additional Instructions: return to ED for any worsening symptoms or concerns umbilical hernia is fat only you can follow up with a surgeon to have this repaired in the future it does not contain bowel you are also constipated on exam Prescriptions: No Action prednisone 5 mg tablet 10 mg PO DAILY amitriptyline 10 mg tablet 25 - 75 mg PO BEDTIME methadone [Methadone Intensol] 10 mg/mL Concentrate 132 mg PO DAILY metronidazole 500 mg Tablet 500 mg PO Q12H Qty: 0 0RF ceftriaxone 1 gram Recon Soln 1 g IV DAILY Qty: 0 0RF doxycycline hyclate [Doxy-100] 100 mg Recon Soln 100 mg IV Q12H Qty: 0 0RF nicotine 14 mg/24 hr Patch 24 Hour 14 mg transdermal DAILY Qty: 0 0RF polyethylene glycol 3350 17 gram Powder In Packet 17 g PO DAILY Qty: 0 0RF omeprazole 40 mg Capsule,Delayed Release(Dr/Ec) 40 mg PO DAILY@0630 Qty: 0 0RF aspirin 81 mg Tablet,Chewable 81 mg PO DAILY Qty: 0 0RF enoxaparin 80 mg/0.8 mL Syringe 75 mg subcut Q12H Qty: 0 0RF Referrals: Norbert Gar MD [Physician] - 1 week Stand Alone Forms: Work/School Release
[2022-03-18 23:25] LABS: MANUAL DIFF FLAG NO
[2022-03-18 23:28] LABS: Basophils Percent Auto 0.2 % (0-2); Eosinophils Absolute Auto 0.1 X10*3/uL (0.0-0.4); Eosinophils Percent Auto 1.1 % (0-4); Hematocrit 37.6 % (37.0-47.0); Hemoglobin 12.1 g/dl (12.0-16.0); Imm Gran Abs Auto 0.01 X10*3/uL (0.00-0.03); Imm Gran Pct Auto 0.2 % (0.0-0.4); Lymphocytes Absolute Auto 2.1 X10*3/uL (1.2-4.9); Lymphocytes Percent Auto 45.8 % (20-40); Mean Corpuscular HGB Conc 32.2 g/dl (31.0-35.0); Mean Corpuscular Hemoglobin 28.5 pg (27.0-33.0); Mean Corpuscular Volume 88.5 fL (80.0-98.0); Mean Platelet Volume 8.7 fL (9.4-12.3); Monocytes Absolute Auto 0.4 X10*3/uL (0.1-1.2); Monocytes Percent Auto 8.1 % (2-11); Neutrophils Absolute Auto 2.1 x10*3/uL (2.0-8.3); Neutrophils Percent Auto 44.6 % (45-73); Platelet Count 292 X10*3/uL (160-400); Red Blood Count 4.25 X10*6/uL (4.20-5.50); Red Cell Distribution Width 12.7 % (11.0-16.0); White Blood Count 4.7 X10*3/uL (4.8-10.8)
[2022-03-18] MEDS: Ketorolac Tromethamine 15 MG/ML VIAL 30 MG IVPUSH (23:28)
[2022-03-18] MEDS: ondansetron HCL 4 MG/2 ML VIAL IVPUSH (23:28)
[2022-03-18 23:30] VITALS: BP 90/56
[2022-03-18] MEDS: Lactated Ringers 1,000 ML 999 ML IV (23:33)
[2022-03-18 23:42] LABS: COVID-19 Test Negative (Negative); IDNOW Serial# 9DB6401D
[2022-03-18 23:55] LABS: Alanine Aminotransferase 11 U/L (0-31); Albumin Level 3.5 g/dL (3.5-5.0); Alkaline Phosphatase 95 U/L (39-117); Anion Gap 11 (12-20); Aspartate Amino Transferase 16 U/L (5-31); Bilirubin Direct < 0.2 mg/dL (0.0-0.5); Bilirubin Total < 0.2 mg/dL (0.0-1.0); Blood Urea Nitrogen 11 mg/dL (9-16); Carbon Dioxide 29 mmol/L (22-29); Chloride 102 mmol/L (96-108); Creatinine Clr Calc Pharmacy 110.9; Estimated Glomerular Filt Rate > 60; Glucose Random 101 mg/dL (60-115); Lipase 10 U/L (8-78); Potassium 4.4 mmol/L (3.3-5.1); Sodium 138 mmol/L (135-145); Total Protein 7.8 g/dL (6.5-8.0)
[2022-03-18 23:56] LABS: HCG Quantitative < 2 mIU/mL
[2022-03-19] VITALS: BP 103/60; PULSE 69; RESP 16; TEMP 36.5; O2SAT 100
--- NOTE | 2022-03-19 00:09 | PC.NURSE ---
PT TAKEN TO CAT SCAN NOW
[2022-03-19] MEDS: iohexoL 350 MG/ML 100 ML INFUS..BTL IV (00:17)
--- NOTE | 2022-03-19 01:09 | PC.NURSE ---
Float RN to room to answer call thapa at which poin the pt was found sitting upright in bed with legs crossed in front of her, head in hands. Pt reporting continued 8/10 abdominal pain without improvement s/p previous sports medicine coordinator. Pt requesting additional pain medication, MD Cummings to be made aware
[2022-03-19 01:11] VITALS: BP 105/64; PULSE 69; RESP 18; O2SAT 99
[2022-03-19] MEDS: Lactulose 20 GM/30 ML SOLUTION PO (01:35)
== END 2022-03-19 01:43 | disposition home or self-care (01) ==
PROVIDERS: Emergency Provider Emergency Medicine; PCP Internal Medicine
DX: K42.9 Umbilical hernia without obstruction or gangrene (principal); F11.20 Opioid dependence, uncomplicated; Z20.822 Contact with and (suspected) exposure to COVID-19; Z79.899 Other long term (current) drug therapy
CPT/HCPCS: 74177; 80048; 80076; 83690; 83735; 84702; 85025; 87635; 96365; 96375; 99285; J1885; J2270; J2405; Q9967

== ENCOUNTER → 2022-04-20 11:09 | Outpatient (BNVA) | payer OTHER, SELFPAY | PROVIDERS: PCP Internal Medicine; Visit Provider Surgery | DX: K43.2 Incisional hernia without obstruction or gangrene (principal); I25.2 Old myocardial infarction; R94.31 Abnormal electrocardiogram [ECG] [EKG]; I20.0 Unstable angina; I51.4 Myocarditis, unspecified; M32.9 Systemic lupus erythematosus, unspecified | CPT/HCPCS: 99202 ==

== ENCOUNTER → 2022-05-09 08:40 | Outpatient (BNVA) | payer OTHER, SELFPAY | PROVIDERS: PCP Internal Medicine; Referring Provider Internal Medicine; Visit Provider Surgery | DX: K43.2 Incisional hernia without obstruction or gangrene (principal); M32.9 Systemic lupus erythematosus, unspecified; F11.20 Opioid dependence, uncomplicated | CPT/HCPCS: 99212 ==

== ENCOUNTER → 2022-05-16 14:50 | Outpatient (BNVA) | payer OTHER, SELFPAY | PROVIDERS: PCP Internal Medicine; Referring Provider Internal Medicine; Visit Provider Internal Medicine Cardiovascular Disease | DX: Z01.810 Encounter for preprocedural cardiovascular examination (principal); R06.00 Dyspnea, unspecified; R07.9 Chest pain, unspecified | CPT/HCPCS: 93005; 99212 ==

== ENCOUNTER 2023-10-29 11:29 | Outpatient (AMB) | payer SELFPAY ==
[2023-10-29 11:34] VITALS: BP 108/66; PULSE 88
--- NOTE | 2023-10-29 11:34 | MHC.OFFVIS ---
Intake Vital Signs 10/29/23 11:34 Weight 117 lb BP 108/66 Blood Pressure Location Rt brachial Position Sitting Pulse 88 Intake Visit Reasons: Enlarging hernia Intake Note: Patient scheduled today's appointment to discuss hernia surgery. Was previously seen by Dr. Ramirez. Last visit April 2022. Patient c/o: on and off abd pain. Pain has gotten so bad that she is unable to lay for long. Auto Emissions Technician Required: No Accompanied by: Self / Same As Patient Allergies From [facility] Allergy (Unknown, Uncoded 10/29/23 11:35) ITCHING HPI HPI Comments History of Present Illness Details Patient presents for evaluation of a symptomatic umbilical hernia. She has had this over a year's time it is increasing in size, become more symptomatic. She would like to have repaired. He has no other GI issues or complaints. She has tolerating a diet. Having regular bowel habits. Chart was reviewed and patient evaluated. Patient has history of heroin abuse. She is currently on methadone. Status post laparoscopic cholecystectomy [facility] Medical History Opiate dependence Lupus Surgical History (Updated 10/29/23 @ 13:03 by John Manzano MD) Hernia, umbilical Hx of cholecystectomy Family History Sister SLE (systemic lupus erythematosus related syndrome) Social History Household Members: None Housing: Apartment Alcohol intake: never Patient Tobacco Use Status: Current everyday Tobacco user Cigarettes Per Day: 6 Substance Use Type: Heroin service: No Physical Exam Vital Signs: Last Vital Signs Pulse 88 10/29/23 11:34 BP 108/66 10/29/23 11:34 Chest Other: Chest breath sounds bilaterally, HS 1 in 2 GI Other: Patient was examined both supine and standing with Valsalva. Soft scaphoid abdomen. Approximate 3 cm reducible umbilical hernia. Groin exam negative. Abdomen otherwise benign. Assessment & Plan Assessment & Plan (1) Hernia, umbilical: Code(s): K42.9 - Umbilical hernia without obstruction or gangrene Qualifiers: Obstruction and gangrene presence: without obstruction or gangrene Qualified Code(s): K42.9 - Umbilical hernia without obstruction or gangrene Plan Risks, benefits, alternatives open repair of umbilical/incisional hernia with mesh was reviewed with the patient and included but not limited to bleeding, infection, recurrence, numbness, pain, scarring, bowel injury and the patient wishes to proceed. All questions answered. Arrangements were made for this. Coding Level of Care Code New Pt Level 5 (28972) Diagnoses Hernia, umbilical K42.9 Obstruction and gangrene presence: without obstruction or gangrene
== END 2023-10-29 11:42 | disposition home or self-care (01) ==
PROVIDERS: PCP Internal Medicine; Visit Provider Surgery
DX: K42.9 Umbilical hernia without obstruction or gangrene (principal)
CPT/HCPCS: 99204

== ENCOUNTER → 2023-10-29 11:29 | Outpatient (BNVA) | payer SELFPAY | PROVIDERS: PCP Internal Medicine; Visit Provider Surgery | DX: K42.9 Umbilical hernia without obstruction or gangrene (principal) | CPT/HCPCS: 99202 ==

== ENCOUNTER 2023-12-06 08:39 | Emergency (ER) | payer OTHER, SELFPAY ==
[2023-12-06 08:43] VITALS: BP 109/62; PULSE 100; RESP 16; TEMP 36.6; BMI 20.6
--- OUTSIDE RECORDS SUMMARY | 2023-12-06 09:27 | XMS_ITS | Continuity of Care Document ---
Author Organization [facility] ter Address [address] [place] [id number]- Care Team Providers Care Acquisition Advisor Name Role Phone Nasim ROME MD, Alfonzo Tapia Primary Care Physician Encounter [facility] Date(s): 08/16/23 - 08/16/[address] [address]- Encounter Diagnosis Chest pain(Final) - 08/16/23 Sternal pain(Final) - 08/16/23 Leg swelling(Final) - 08/16/23 Lupus(Final) - 08/16/23 Tobacco use(Final) - 08/16/23 Vapes nicotine containing substance(Final) - 08/16/23 Discharge Disposition: A-D/C Home Attending Physician: Samara Alonso DO Admitting Physician: Samara Alonso DO Referring Physician: Not on Staff, Referring MD Allergies, Adverse Reactions, Alerts No Known Allergies Immunizations Given and Recorded Vaccine Date Status Refusal Reason Human Papillomavirus Vaccine 1 08/23/11 Given Human Papillomavirus Vaccine 06/01/11 Given Human Papillomavirus Vaccine 2 02/01/11 Given tetanus/diphtheria/pertussis, acel(Tdap) 07/25/10 Given Influenza Inactive (IM) (oldterm) 3 05/25/10 Given 1Admin Note: Given by Estuardo Logan CNM. 2Admin Note: 10/25/09 VIS Given. 3Admin Note: 03/07/10 VIS Given. Medications amitriptyline 100 mg oral tablet TAKE 1 TABLET BY MOUTH AT BEDTIME Start Date: 12/24/17 Status: Ordered azaTHIOprine 50 mg oral tablet TAKE 1/2 TAB BY MOUTH DAILY. Start Date: 12/24/17 Status: Ordered hydroxychloroquine 200 mg oral tablet TAKE 1 TABLET BY MOUTH TWICE A DAY Start Date: 12/24/17 Status: Ordered predniSONE 5 mg oral tablet TAKE 1 TABLET BY MOUTH TWICE A DAY Start Date: 12/24/17 Status: Ordered Problem List Condition Confirmation Course Effective Dates Status H ealth Status Informant Abnormal cervical Papanicolaou smear 1, 2, 3, 4, 5, 6, 7, 8, 9 Confirmed 01/2011 Active RAGHU II (cervical intraepithelial neoplasia II) 10 Confirmed 11/10/13 Active Gardasil Confirmed Active Migraine Confirmed Active Smoker 11 Confirmed 09/24/13 Active 1LEEP done 12/17/13. 2ecc neg; bx = RAGHU II. referred to [facility] for treatment options. 3colpo, pap, ecc, bx x 2 4called pt, colpo direct care counselor, accepted appt 09/24/13 3pm. 5no show colpo; pt called, letter sent. pap LGSIL, needs colpo pap negative 8Normal colpo today 9index pap ascus +hpv 10LEEP done 12/17/13 111/4 PPD x 8 ys. Results Radiology Reports * Exam Date Time Procedure Performing Provider Status 08/16/23 7:[address] Angio Chest Colon , Agnes; Auth ( Verified) Notes: (CT Angio Chest) Reason For Exam: PE suspected, Intermediate prob, positive D-dimer,;Other: RESULT: CT Angio Chest EXAMINATION: CT Angio Chest INDICATION: Hx of Present Illness: SOB abd BLE edema x 5 days; Reason: Other:; PE suspected, Intermediate prob, positive D-dimer,; Clinical Question(s): Pulmonary Embolism; Order Comment: TECHNIQUE: Spiral CTA of the chest was performed after rapid IV contrast administration without cardiac gating, triggered by an OCTAVIO on the main pulmonary artery. Images are formatted in multiple planes using 2-D multiplanar and 3-D maximum intensity projection. 75 cc of Omnipaque 300 was administered intravenously. Weight-based protocol using automatic tube modulation was used to optimize exposure parameters. CTDIvol Body: 8.70 mGy, DLP Body: 278 mGy*cm. COMPARISONS: None. ANGIOGRAPHIC FINDINGS: No pulmonary embolism to the subsegmental level. Normal caliber pulmonary arteries. No acute aortic abnormality seen on this study performed without cardiac gating. NON-ANGIOGRAPHIC FINDINGS: Parachute Packer View Findings, Lines and Tubes: None. Trachea and Airways: Patent without evidence of tracheal or endobronchial lesion. Lungs and Pleura: Clear lungs. No effusion or pneumothorax. Mediastinum and stevo: No mass or hematoma. No mediastinal or hilar lymphadenopathy. No esophageal abnormality. Heart: Heart is normal in size. No pericardial effusion. Chest Wall Soft Tissues: Normal. Diaphragm and upper abdomen: No significant abnormality. Status post cholecystectomy. The remaining visualized upper abdominal organs are unremarkable. Bones: No acute abnormality. IMPRESSION: No evidence of pulmonary embolism. WSN: [id number] Ordering Physician: Samara Alonso Dictated By: Rip Sam MD Dictated Date/Time: 08/16/23 7:36 pm Reviewed By: Rip Sam MD Signed By: Rip Sam MD Signed Date/Time: 08/16/23 7:36 pm Transcribed By: KELLY Transcribed Date/Time: 08/16/23 7:33 pm * Exam Date Time Procedure Performing Provider Status 08/16/23 5:40 PM US Doppler Ext Lower Venous Bilat Dione Weeks; Auth (Verified) Notes: (US Doppler Ext Lower Venous Bilat) Reason For Exam: Pain in limb;Other: RESULT: US Doppler Ext Lower Venous Bilat US Doppler Ext Lower Venous Bilat Hx of Present Illness: SOB abd BLE edema x 5 days; Reason: Other:; Pain in limb; Clinical Question(s): Thrombosis COMPARISON: None IMAGING TECHNIQUE: Ultrasound of the veins from the groin through the calf was performed using grayscale, color, and spectral Doppler ultrasound assessing for complete compressibility and normal flowcharacteristics. FINDINGS: RIGHT LOWER EXTREMITY: Common femoral vein: Patent. No thrombosis. Femoral vein: Patent. No thrombosis. Popliteal vein: Patent. No thrombosis. Gastrocnemius veins: The visualized portions are patent without evidence of thrombosis. Peroneal veins: The visualized portions are patent without evidence of thrombosis. Posterior tibial veins: The visualized portions are patent without evidence of thrombosis. LEFT LOWER EXTREMITY: Common femoral vein: Patent. No thrombosis. Femoral vein: Patent. No thrombosis. Popliteal vein: Patent. No thrombosis. Gastrocnemius veins: The visualized portions are patent without evidence of thrombosis. Peroneal veins: The visualized portions are patent without evidence of thrombosis. Posterior tibial veins: The visualized portions are patent without evidence of thrombosis. OTHER FINDINGS: Tubular fluid collection in the right proximal calf medially, likely resolving hematoma or seroma. IMPRESSION: No evidence of deep venous thrombosis. Probable hematoma or seroma in the medial calf. WSN: [id number] Ordering Physician: Salvatore Damon Dictated By: Ramón Moyer MD Dictated Date/Time: 08/16/23 5:57 pm Reviewed By: Ramón Moyer MD Signed By: Ramón Moyer MD Signed Date/Time: 08/16/23 5:57 pm Transcribed By: KELLY Transcribed Date/Time: 08/16/23 5:51 pm * Exam Date Time Procedure Performing Provider Status 08/16/23 4:19 PM Chest 2 Views Frontal and Lat Delmer Alberto; Gayatri (Verified) Notes: (Chest 2 Views Frontal and Lat) Reason For Exam: Cough RESULT: Chest 2 Views Frontal and Lat Chest 2 Views Frontal and Lat Hx of Present Illness: SOB abd BLE edema x 5 days; Reason: Cough; Clinical Question(s): Pneumonia COMPARISON: Multiple prior chest radiographs with the most recent dated 05/04/2018. FINDINGS: LINES AND TUBES: None. LUNGS AND PLEURA: Clear lungs. Normal pulmonary vascularity. No pleural effusion. No pneumothorax. HEART, MEDIASTINUM AND STEVO: Heart is normal in size. Normal mediastinal and hilar contour. BONES AND SOFT TISSUES: No acute abnormality. IMPRESSION: No acute abnormality. WSN: [id number] Ordering Physician: Salvatore Damon Dictated By: Yakov Palacio MD, V Dictated Date/Time: 08/16/23 4:25 pm Reviewed By: Yakov Palacio MD, V Signed By: Yakov Palacio MD, V Signed Date/Time: 08/16/23 4:25 pm Transcribed By: KELLY Transcribed Date/Time: 08/16/23 4:24 pm Vital Signs Most recent to oldest [Reference Range]: 1 2 3 Height 163 cm (08/16/23 3:17 PM) Weight 53 kg (08/16/23 3:17 PM) Oxygen Saturation [94-100 %] 99 % (08/16/23 8:24 PM) 100 % (08/16/23 6:00 PM) 100 % (08/16/23 3:15 PM) Pulse Rate [55-90 bpm] 86 bpm (08/16/23 8:24 PM) 88 bpm (08/16/23 6:00 PM) 87 bpm (08/16/23 3:15 PM) Blood Pressure [90-138/55-84 mm Hg] 124/68mm Hg (08/16/23 8:24 PM) 122/64mm Hg (08/16/23 6:00 PM) 113/64mm Hg (08/16/23 3:15 PM) Respiratory Rate [16-30 br/min] 18 br/min (08/16/23 8:24 PM) 16 br/min (08/16/23 6:00 PM) 16 br/min (08/16/23 3:15 PM) Temperature [96.8-100.4 DegF] 97.7 DegF (08/16/23 8:24 PM) 97.8 DegF (08/16/23 3:15 PM) Mode of Delivery (Oxygen) Room air (08/16/23 6:00 PM) Room air (08/16/23 3:15 PM) Blood pressure sites Arm, right (08/16/23 6:00 PM) Arm, right (08/16/23 3:15 PM) Temperature Route Oral (08/16/23 3:15 PM) Dry Weight 53 kg (08/16/23 3:17 PM) Social History Social History Type Response Smoking Status Former smoker; Other : quit august 2014; entered on: 11/23/14 Sex EKG study * Event Display: ECG 12-Lead Authored Date: Please click on pdf link to open report * Event Display: ECG 12-Lead Authored Date: Ventricular Rate: 75 BPM Atrial Rate: 75 BPM P-R Interval: 158 ms QRS Duration: 92 ms Q-T Interval: 416 ms QTC Calculation(Bazett): 464 ms P Perry: 77 degrees R Perry: 76 degrees T Perry: 73 degrees Normal sinus rhythm Normal ECG When compared with ECG of 13-SEP-2021 08:44, No significant change was found Confirmed by LOLA IZQUIERDO ([id number]) on 08/16/2023 5:26:53 PM [place]: LOLA IZQUIERDO Note * Nelson SALMERON, Salvatore Tapia: PERFORM Event Display: Patient Education Leaflets Authored Date: Uncertain Causes of Chest Pain ?? [id number] Uncertain Causes of Chest Pain Chest pain can happen for a number of reasons. Sometimes the cause can't be determined. If your??condition does not seem serious, and your pain does not appear to be coming from your heart, your healthcare provider may recommend watching it closely. Sometimes the signs of a serious problem take more time to appear. Many problems not related to your heart can cause chest pain. These include: ??? Musculoskeletal. Costochondritis is an inflammation of the tissues around the ribs that can occur from trauma or overuse injuries, or a strain of the muscles of the chest wall. ??? Respiratory. Pneumonia, collapsed lung (pneumothorax), or inflammation of the lining of the chest and lungs (pleurisy). ??? Gastrointestinal. Esophageal reflux, heartburn, ulcers, or gallbladder disease. ??? Anxiety and panic disorders ??? Nerve compression and inflammation ??? Rare problems such as aortic aneurysm or aortic dissection (a swelling of the large artery coming out of the heart or a tear in the wall of the artery), or pulmonary embolism (a blood clot in the lungs). Home care After your visit, follow these recommendations: ??? Rest today and avoid strenuous activity. ??? Take any prescribed medicine as directed. ??? Be aware of any recurrent chest pain and notice any changes ?? Follow-up care Follow up with your healthcare provider if you don't start to feel better within 24 hours, or as advised. ?? Call 911 Call 911 if any of these occur: ??? A change in the type of pain: if it feels different, becomes more severe, lasts longer, or begins to spread into your shoulder, arm, neck, jaw or back ??? Shortness of breath or increased pain with breathing ??? Weakness, dizziness, or fainting ??? Rapid heartbeat ??? Crushing sensation in your chest ??? Coughing up more than a small amount of blood. ?? When to seek medical advice Call your healthcare provider right away if any of the following occur: ??? Cough with dark coloredsputum (phlegm) or small amount of blood ??? Fever of 100.4??F??(38??C) or higher, or as directed by your healthcare provider ??? Swelling, pain or redness in one leg ?? Last Reviewed Date: 2021 ?? [id number] [employer]. All rights reserved. This information is not intended as a substitute for professional medical care. Always follow your healthcare professional's instructions. ?? Patient Care team information Care Team Personnel Name: Nasim ROME MD, Alfonzo Tapia Position: Reference Physician Member Role: PCP Address: Address: [address] [place] [address] Name: Rachele Lynne RN Position: [facility] RN Member Role: Primary Care Nurse Care Team Related Persons Name: MARIXA GILMAN Address: home [address] [place] [address] Name: GABY RAJPUT Address: home [address] [place] [address] Name: CHENTE FALOLN Address: home [address] [place] [address]
--- NOTE | 2023-12-06 09:56 | ED.DENTAL ---
HPI - Dental/Oral General Chief complaint: Dental/Oral Stated complaint: ABSCESS IN MOUTH POPPED Time Seen by Provider: 12/06/23 09:20 Source: patient Mode of arrival: EMS Limitations: no limitations History of Present Illness HPI Narrative: patient is a 33 yr old female who presents emergency department for evaluation. She was evaluated at an urgent care 2 days ago provided with a prescription for antibiotics as well as chlorhexidine mouthwash. She reports that the abscess opened up this morning and she has been having pus-like discharge draining. Per nursing triage she endorsed pain with swallowing, when asked, she states it is painful eat and chew solid foods and swallow, she tolerates liquids and soft foods. prior to this infection she does endorse having had a partial filling placed to the tooth but it subsequently fell out and she did not follow back up with her dental provider. Denies fevers or chills. Denies neck pain or neck stiffness. Denies chest pain. MD Complaint: tooth pain Location: Tooth # ( 31 and 32) Onset (ago): month(s) Duration: constant Severity: moderate Severity scale (1-10): 5 Relieving factors: NSAIDs Exacerbating factors: chewing Context: history of dental caries Associated symptoms: gum swelling Treatment prior to arrival: oral analgesic and other ( oral antibiotics) Related Data Home Medications ?Medication ?Instructions ?Recorded ?Confirmed hydroxychloroquine 200 mg tablet 300 mg PO DAILY 04/20/22 05/16/22 ibuprofen 800 mg tablet 800 mg PO Q6H PRN 10/29/23 meloxicam 15 mg tablet 15 mg PO DAILY 10/29/23 methadone 5 mg/0.5 mL oral syringe 5 mg PO DAILY 10/29/23 (FOR ORAL USE ONLY) Previous Rx's ?Medication ?Instructions ?Recorded amoxicillin 875 mg-potassium 1 tab PO BID #14 tabs 12/06/23 clavulanate 125 mg tablet Allergies Allergy/AdvReac Type Severity Reaction Status Date / Time From [facility] Allergy Unknown ITCHING Uncoded 12/06/23 08:45 Review of Systems Review of Systems: Yes all other systems are reviewed and are negative PMFSH Past Medical History Attestation statement: The following information was validated with the patient. Source: old records reviewed Medical History Opiate dependence Lupus Surgical History Hernia, umbilical Hx of cholecystectomy Family History Family History Sister SLE (systemic lupus erythematosus related syndrome) Social History Social History Household Members: None Housing: Apartment Alcohol intake: never Patient Tobacco Use Status: Current everyday Tobacco user Cigarettes Per Day: 6 Substance Use Type: Heroin Advance Directives: No Advance Directives Information Provided: Yes service: No Physical Exam Vital Signs: Vital Signs: Last Vital Signs Temp 98.0 F 12/06/23 10:26 Pulse 100 12/06/23 10:26 Resp 16 12/06/23 10:26 BP 109/62 12/06/23 10:26 Pulse Ox 98 12/06/23 10:26 O2 Del Method Room Air 12/06/23 10:26 BMI result Body Mass Index 20.6 Appearance: Alert. Oriented X3. No acute distress. Head: Normal external exam. Normocephalic. Atraumatic. Eyes: PERRLA. EOMI. Conjunctiva and sclera normal. Eyelids normal. ENT: EAC normal. TM's Normal. Pharynx normal. Uvula midline. Moist mucous membranes.? ?No trismus noted.? No drooling noted.? No muffled voice noted. Dentition:? Patient with poor dentition throughout with multiple old fractured teeth with multiple dental caries.? Gingival erythema surrounding left lower teeth.? No fluctuance at this time, small amount of purulent discharge is noted at the base of tooth number 31 and 32.? Not consistent with peritonsillar abscessNo salivary duct obstruction noted. Neck: Normal inspection. Neck supple. FROM. No adenopathy. Thyroid Normal. No meningeal signs. No neck mass noted.? Trachea midline. CVS: Normal heart rate and rhythm. Heart sound normal. No murmurs noted. Pulses normal throughout. Respiratory: No respiratory distress. Painless inspiration. Breath sounds normal. Skin: Skin warm and dry.? Normal skin color.? Normal skin turgor. No rashes/lesions/lacerations noted. Extremities: Extremities exhibit normal range of motion.? Extremities nontender. Neuro: Oriented X 3.? No motor deficit.? No sensory deficit.? Reflexes normal. Medical Decision Making Medical Decision Making MDM Narrative: Patient is a 33 year old female who presents emergency department for evaluation of interrupted dental abscess of the right lower molar as per HPI and physical exam portion of this note. no indication for further drainage. Exam not consistent with peritonsillar retropharyngeal abscess. No indication for exam findings to suggest deeper space infection, Kwame's angina at this time. Sent prescription for antibiotic to pharmacy and recommended follow-up outpatient with dentist. Reviewed worrisome signs and symptoms that would warrant re-evaluation in the emergency department. All questions answered. Stable for discharge Differential Diagnosis Differential Diagnoses: The differential diagnosis associated with the presentation includes ( see narrative above) Tests considered The following testing was considered but not selected: CT deferred, see narrative above Prescription Management I considered prescription management with: Pain Medication and Antibiotic Discharge Plan Discharge Clinical Impression: Abscess, periapical Patient Disposition: Home, Self-Care Instructions: Dental Abscess (ED) Additional Instructions: You can take ibuprofen 200 mg, 3 tablets (600mg) every 6-8 hours as needed for pain, in addition to Tylenol 500 mg, 2 tablets (1,000mg) every 4-6 hours as needed for pain, but not to exceed 3 doses daily (3,000mg).? Discontinue the penicillin VK. A new prescription for Augmentin was sent to the pharmacy, complete the entire course as prescribed in addition to chlorhexidine mouthwash. Is important that you follow-up with your dentist Prescriptions: New amoxicillin-pot clavulanate 875-125 mg tablet 1 tab PO BID Qty: 14 0RF No Action hydroxychloroquine 200 mg tablet 300 mg PO DAILY methadone 5 mg/0.5 mL syringe 5 mg PO DAILY meloxicam 15 mg tablet 15 mg PO DAILY ibuprofen 800 mg tablet 800 mg PO Q6H PRN Referrals: Alfonzo Rouse III, MD [Primary Care Provider] - Interventions: ED Discharge Assessment Last Done: 12/06/23 10:26 Discharge Date/Time: 12/06/23 10:27 Print Language: Polish
--- NOTE | 2023-12-06 10:06 | PC.NURSE ---
Provider to bedside for primary eval.
[2023-12-06 10:26] VITALS: BP 109/62; PULSE 100; RESP 16; TEMP 36.7; O2SAT 98
== END 2023-12-06 10:27 | disposition home or self-care (01) ==
PROVIDERS: Emergency Provider Student in an Organized Health Care Education/Training Program; PCP Internal Medicine
DX: K04.7 Periapical abscess without sinus (principal); F17.210 Nicotine dependence, cigarettes, uncomplicated
CPT/HCPCS: 99282; 99283

== ENCOUNTER 2024-01-07 13:50 | Inpatient (IN) | payer OTHER, SELFPAY ==
[2024-01-07] VITALS (19 sets, daily range): BP systolic 98–147; BP diastolic 41–116; PULSE 77–170; RESP 10–40; TEMP 36.3–37.7; O2SAT 96–100
--- NOTE | 2024-01-07 14:07 | ED.OVERDOSE ---
HPI - Overdose General Chief Complaint: Overdose Stated Complaint: OVERDOSE,NARCAN GIVEN Time Seen by Provider: 01/07/24 13:59 Source: EMS Mode of arrival: EMS Limitations: altered mental status History of Present Illness ED Provider: Dr. Apolinar Johnson HPI Narrative: 33-year-old female with a history of myocarditis, pneumonia, lupus, opiate dependence, who was brought to emergency department by ambulance for evaluation of overdose. Information came from the nursing note. Patient's child's father called 911 for an overdose. EMS reports that the patient was breathing on her own and that the patient took xylazine and other pills possibly amitriptyline. Patient was extremely restless and unable to stay still. Patient had uncontrollable jerking and kicking noted by paramedics. Was reported that the patient may have taken 13 amitriptyline pills of unknown dose. It was reported that she took these pills in order to sleep. Paramedics did give intranasal Narcan with no significant change in the patient's altered mental status. On presentation the patient was extremely agitated and altered. She had spasmodic jerking movements, she was unable to answer questions or cooperate with examination. Continue to try to get up and get off the bed and was not redirectable secondary to her altered mental status. Related Data Home Medications ?Medication ?Instructions ?Recorded ?Confirmed hydroxychloroquine 200 mg tablet 300 mg PO DAILY 04/20/22 05/16/22 ibuprofen 800 mg tablet 800 mg PO Q6H PRN 10/29/23 meloxicam 15 mg tablet 15 mg PO DAILY 10/29/23 methadone 5 mg/0.5 mL oral syringe 5 mg PO DAILY 10/29/23 (FOR ORAL USE ONLY) Previous Rx's ?Medication ?Instructions ?Recorded amoxicillin 875 mg-potassium 1 tab PO BID #14 tabs 12/06/23 clavulanate 125 mg tablet Allergies Allergy/AdvReac Type Severity Reaction Status Date / Time From REGLAN Allergy Mild Itching Uncoded 01/07/24 14:31 Review of Systems Review of Systems: Yes Unobtainable due to mental status PMFSH Past Medical History Medical History Opiate dependence Lupus Surgical History Hernia, umbilical Hx of cholecystectomy Family History Family History Sister SLE (systemic lupus erythematosus related syndrome) Social History Social History Household Members: None Housing: Apartment Alcohol intake: never Patient Tobacco Use Status: Current everyday Tobacco user Cigarettes Per Day: 6 Substance Use Type: Heroin Advance Directives: No Advance Directives Information Provided: No Do you have a plan to hurt others: No Plan service: No Physical Exam Vital Signs: Vital Signs: Last Vital Signs Temp 97.4 F 01/07/24 20:15 Pulse 85 01/07/24 20:15 Resp 20 01/07/24 20:15 BP 106/56 L 01/07/24 20:15 Pulse Ox 100 01/07/24 20:15 O2 Del Method Room Air 01/07/24 20:15 O2 Flow Rate 2 01/07/24 20:00 BMI result Body Mass Index 20.0 Vital signs were normal Exam: General: Patient was extremely agitated, nonverbal, jerking spasmodically and trying to get off the bed, she was not redirectable Head: Normocephalic, atraumatic EENT: PERRL, Lids normal, sclera normal, conjunctiva normal, nose normal , ears normal, throat without erythema or exudates Neck: Supple, no adenopathy Lung: breath sounds symmetric, no wheezing, rales or rhonchi Chest: symmetric movement, nontender Heart: Tachycardia, regular rhythm, normal S1, S2 no murmurs or rubs Abdomen: soft, normoactive bowel sounds, nondistended, nontender Back: No obvious trauma Extremities: no deformities, moves all extremities symmetrically Neuro: Altered mental status, not answering questions, drinking spasmodically, trying to get off the stretcher, yelling at time but not making sense Medications Administered Generic Name Dose Route Start Last Admin Trade Name Freq PRN Reason Stop Dose Admin Lactated Ringer's 1,000 mls @ 999 mls/hr 01/07/24 21:45 01/07/24 22:00 Lr IV 01/07/24 22:45 999 mls/hr .Q1H1M NALLELY Administration Lactated Ringer's 1,000 mls @ 999 mls/hr 01/07/24 21:45 01/07/24 22:01 Lr IV 01/07/24 22:45 999 mls/hr .Q1H1M NALLELY Administration Discontinued Medications Generic Name Dose Route Start Last Admin Trade Name Dann PRN Reason Stop Dose Admin Chlorpromazine HCl 50 mg 01/07/24 15:47 01/07/24 15:56 Chlorpromazine Hcl 25 Mg/Ml Ampul IM 01/07/24 15:48 50 mg ONCE ONE Administration Chlorpromazine HCl 50 mg 01/07/24 16:16 01/07/24 16:32 Chlorpromazine Hcl 25 Mg/Ml Ampul IM 01/07/24 16:17 50 mg ONCE ONE Administration Chlorpromazine HCl 100 mg 01/07/24 16:50 01/07/24 16:59 Chlorpromazine Hcl 25 Mg/Ml Ampul IM 01/07/24 16:51 100 mg ONCE ONE Administration Diphenhydramine HCl 50 mg 01/07/24 14:02 01/07/24 14:10 Diphenhydramine Hcl 50 Mg/Ml Vial IVPUSH 01/07/24 14:03 50 mg ONCE STA Administration Haloperidol Lactate 10 mg 01/07/24 14:02 01/07/24 14:10 Haloperidol Lactate 5 Mg/Ml Vial IM 01/07/24 14:03 10 mg STAT STA Administration Haloperidol Lactate 10 mg 01/07/24 14:41 01/07/24 14:40 Haloperidol Lactate 5 Mg/Ml Vial IM 01/07/24 14:42 10 mg ONCE ONE Administration Haloperidol Lactate 10 mg 01/07/24 15:05 01/07/24 15:13 Haloperidol Lactate 5 Mg/Ml Vial IM 01/07/24 15:06 10 mg ONCE ONE Administration Haloperidol Lactate 10 mg 01/07/24 17:58 01/07/24 18:01 Haloperidol Lactate 5 Mg/Ml Vial IVPUSH 01/07/24 17:59 10 mg ONCE ONE Administration Lactated Ringer's 1,000 mls @ 999 mls/hr 01/07/24 16:30 01/07/24 19:00 Lr IV 01/07/24 17:30 Infused .Q1H1M NALLELY Infusion Lactated Ringer's 1,000 mls @ 999 mls/hr 01/07/24 16:30 01/07/24 19:00 Lr IV 01/07/24 17:30 Infused .Q1H1M NALLELY Infusion Midazolam HCl 4 mg 01/07/24 14:02 01/07/24 14:10 Midazolam Hcl/Pf 2 Mg/2 Ml Vial IM 01/07/24 14:03 2 mg ONCE ONE Increment Incremental Dosing Total Given: 2 mg Midazolam HCl 4 mg 01/07/24 15:05 01/07/24 15:13 Midazolam Hcl/Pf 2 Mg/2 Ml Vial IM 01/07/24 15:06 4 mg ONCE ONE Administration Midazolam HCl 2 mg 01/07/24 14:40 01/07/24 14:40 Midazolam Hcl/Pf 2 Mg/2 Ml Vial IM 01/07/24 14:41 2 mg ONCE ONE Administration Medical Decision Making Medical Decision Making [facility] Narrative: 33-year-old female with a history of myocarditis, pneumonia, lupus, opiate dependence, who was brought to emergency department by ambulance for evaluation of overdose. Patient's Maikel father called 911 for overdose, was reported that the patient was taking xylazine also may have taken amitriptyline 13 pills of unknown strength. Patient was given intranasal Narcan with no change in her mental status. On presentation in the emergency department the patient was agitated, extremities were jerking violently, she was verbal by incomprehensible, she was yelling at times and trying to get off the stretcher. Vital signs were normal. Neurologic exam appears to be nonfocal. Differential diagnosis: ?Includes but is not limited to Xylazine overdose/adverse reaction, electrolyte abnormalities, anemia, rhabdomyolysis, dehydration, anemia, electrolyte abnormalities Following evaluation was ordered: CBC, CMP, lactic acid, PT/INR, PTT, magnesium, lipase, salicylate, acetaminophen, drug screen urine, urinalysis, COVID-19, RSV, influenza Course: 21:42 Start physician observation at 21:42 hours My interpretation patient's laboratory evaluation is as follows: Normocytic anemia with an H&H of 8.7 and 26.1-patient has had normocytic anemia in the past however these values are significant lower than the previous value on 08/19/2021 have 10.8 and 33.8. Coags were normal. CMP revealed an elevated AST of 43 otherwise unremarkable. CK was elevated 2128 most likely secondary to her severe agitation and muscle spasms. Urinalysis was negative. Acetaminophen was below detectable limits, salicylate below detectable limits. Urine tox screen was positive for methadone, fentanyl, cocaine. COVID-19, influenza and RSV were negative. The patient required a large amount of sedation and physical restraint. She was treated with the following medications: Haldol 10 mg IM x3 and 10 mg IV x1. Versed 2 mg IM, 4 mg IM x2 Benadryl 50 mg IV Thorazine (chlorpromazine) 50 mg IM x2, 100 mg IM x1 Lactated Ringer's x2 L, and 125 cc/hour. At 22:30 hours I will repeat the patient's H&H, CK, salicylate and acetaminophen. At the end of my shift, patient's care was turned over to my colleague, Dr. Kati Rees's. Lab Data 01/07/24 18:30 01/07/24 18:30 Labs: Lab Results 01/07/24 01/07/24 01/07/24 Range/Units 14:41 18:18 18:29 WBC (4.8-10.8) X10*3/uL RBC (4.20-5.50) X10*6/uL Hgb (12.0-16.0) g/dl Hct (37.0-47.0) % MCV (80.0-98.0) fL MCH (27.0-33.0) pg MCHC (31.0-35.0) g/dl RDW (11.0-16.0) % Plt Count (160-400) X10*3/uL MPV (9.4-12.3) fL Immature Gran % (Auto) (0.0-0.4) % Neut % (Auto) (45-73) % Lymph % (Auto) (20-40) % [place] % (Auto) (2-11) % Eos % (Auto) (0-4) % Baso % (Auto) (0-2) % Lymph # (Auto) (1.2-4.9) X10*3/uL [place] # (Auto) (0.1-1.2) X10*3/uL Eos # (Auto) (0.0-0.4) X10*3/uL Baso # (Auto) (0.0-0.2) X10*3/uL Abs Immat Gran (auto) (0.00-0.03) X10*3/uL Absolute Neuts (auto) (2.0-8.3) x10*3/uL Absolute Nucleated RBC (0.0-0.012) X10*3/uL Nucleated RBC % (auto) (0.0-0.2) /100WBC PT (11.1-13.3) SEC INR (0.9-1.1) APTT (26.0-36.8) SEC Sodium (135-145) mmol/L Potassium (3.3-5.1) mmol/L Chloride (96-108) mmol/L Carbon Dioxide (22-29) mmol/L Anion Gap (12-20) BUN (9-16) mg/dL Creatinine (0.5-1.4) mg/dL Estim Creat Clear Calc Estimated GFR Random Glucose (60-115) mg/dL Lactic Acid (0.5-2.0) mmol/L Calcium (8.4-10.2) mg/dL Magnesium (1.6-2.6) mg/dL Total Bilirubin (0.0-1.0) mg/dL AST (5-31) U/L ALT (0-31) U/L Alkaline Phosphatase (39-117) U/L Total Creatine Kinase (26-140) U/L Troponin I High Sens (<3.5-17.0) ng/L Total Protein (6.5-8.0) g/dL Albumin (3.5-5.0) g/dL Lipase (8-78) U/L Urine Color Yellow Urine Appearance Cloudy Urine pH 8.0 (5.0-9.0) Ur Specific [place] <= 1.005 (1.005-1.025) Urine Protein Negative (Neg-Trace) mg/dL Urine Glucose (UA) Negative (Negative) mg/dL Urine Ketones Negative (Negative) mg/dL Urine Blood Trace H (Negative) Urine Nitrite Negative (Negative) Ur Leukocyte Esterase Small (1+) H (Negative) Urine RBC 0-2 (0-2) /HPF Urine WBC 0-5 (0-5) /HPF Ur Squamous Epith Cells 6-10 (0-2) /HPF Urine Bacteria 4+ (None Seen) Hyaline Casts 0-2 (0-2) /LPF Salicylates < 5.0 L (15-30) mg/dL Urine Opiates Screen Not Detected (Not Detect) Ur Buprenorphine Scrn Not Detected (Not Detect) ng/mL Ur Oxycodone Screen Not Detected (Not Detect) ng/mL Urine Methadone Screen Positive H (Not Detect) ng/mL Urine Fentanyl Screen POSITIVE H (Not Detect) Acetaminophen < 3 (<30) mcg/mL Ur Barbiturates Screen Not Detected (Not Detect) Ur Phencyclidine Scrn Not Detected (Not Detect) Ur Amphetamines Screen Not Detected (Not Detect) U Benzodiazepines Scrn Not Detected (Not Detect) Urine Cocaine Screen POSITIVE H (Not Detect) U Marijuana (THC) Screen Not Detected (Not Detect) Influenza Type A (PCR) NEGATIVE (Negative) Influenza Type B (PCR) NEGATIVE (Negative) RSV RNA Qual (PCR) NEGATIVE (Negative) SARS-CoV-2 RNA (RT-PCR) NEGATIVE (Negative) 01/07/24 Range/Units 18:30 WBC 9.6 (4.8-10.8) X10*3/uL RBC 3.14 L D (4.20-5.50) X10*6/uL Hgb 8.7 L D (12.0-16.0) g/dl Hct 26.1 L D (37.0-47.0) % MCV 83.1 (80.0-98.0) fL MCH 27.7 (27.0-33.0) pg MCHC 33.3 (31.0-35.0) g/dl RDW 13.0 (11.0-16.0) % Plt Count 222 (160-400) X10*3/uL MPV 8.6 L (9.4-12.3) fL Immature Gran % (Auto) 0.2 (0.0-0.4) % Neut % (Auto) 88.7 H (45-73) % Lymph % (Auto) 6.7 L (20-40) % [place] % (Auto) 4.3 (2-11) % Eos % (Auto) 0.0 (0-4) % Baso % (Auto) 0.1 (0-2) % Lymph # (Auto) 0.6 L (1.2-4.9) X10*3/uL [place] # (Auto) 0.4 (0.1-1.2) X10*3/uL Eos # (Auto) 0.0 (0.0-0.4) X10*3/uL Baso # (Auto) 0.0 (0.0-0.2) X10*3/uL Abs Immat Gran (auto) 0.02 (0.00-0.03) X10*3/uL Absolute Neuts (auto) 8.5 H (2.0-8.3) x10*3/uL Absolute Nucleated RBC 0.000 (0.0-0.012) X10*3/uL Nucleated RBC % (auto) 0.0 (0.0-0.2) /100WBC PT 14.7 H (11.1-13.3) SEC INR 1.2 H (0.9-1.1) APTT 26.7 (26.0-36.8) SEC Sodium 141 (135-145) mmol/L Potassium 3.4 (3.3-5.1) mmol/L Chloride 107 (96-108) mmol/L Carbon Dioxide 26 (22-29) mmol/L Anion Gap 11 L (12-20) BUN 9 (9-16) mg/dL Creatinine 0.55 (0.5-1.4) mg/dL Estim Creat Clear Calc 120.1 Estimated GFR > 60 Random Glucose 87 (60-115) mg/dL Lactic Acid 1.5 (0.5-2.0) mmol/L Calcium 8.2 L D (8.4-10.2) mg/dL Magnesium 1.7 (1.6-2.6) mg/dL Total Bilirubin 0.4 (0.0-1.0) mg/dL AST 43 H (5-31) U/L ALT 12 (0-31) U/L Alkaline Phosphatase 77 (39-117) U/L Total Creatine Kinase 2128 H (26-140) U/L Troponin I High Sens 11.4 (<3.5-17.0) ng/L Total Protein 7.3 (6.5-8.0) g/dL Albumin 2.9 L (3.5-5.0) g/dL Lipase 13 (8-78) U/L Urine Color Urine Appearance Urine pH (5.0-9.0) Ur Specific [place] (1.005-1.025) Urine Protein (Neg-Trace) mg/dL Urine Glucose (UA) (Negative) mg/dL Urine Ketones (Negative) mg/dL Urine Blood (Negative) Urine Nitrite (Negative) Ur Leukocyte Esterase (Negative) Urine RBC (0-2) /HPF Urine WBC (0-5) /HPF Ur Squamous Epith Cells (0-2) /HPF Urine Bacteria (None Seen) Hyaline Casts (0-2) /LPF Salicylates (15-30) mg/dL Urine Opiates Screen (Not Detect) Ur Buprenorphine Scrn (Not Detect) ng/mL Ur Oxycodone Screen (Not Detect) ng/mL Urine Methadone Screen (Not Detect) ng/mL Urine Fentanyl Screen (Not Detect) Acetaminophen (<30) mcg/mL Ur Barbiturates Screen (Not Detect) Ur Phencyclidine Scrn (Not Detect) Ur Amphetamines Screen (Not Detect) U Benzodiazepines Scrn (Not Detect) Urine Cocaine Screen (Not Detect) U Marijuana (THC) Screen (Not Detect) Influenza Type A (PCR) (Negative) Influenza Type B (PCR) (Negative) RSV RNA Qual (PCR) (Negative) SARS-CoV-2 RNA (RT-PCR) (Negative) Critical Care Time Critical Care Time Critical Care Time: Yes Total Critical Care Time: 120 Attestation: Critical Care: The patient was critically ill with a high probability of imminent or life threatening deterioration. I spent greater than 30 minutes of discontinuous time evaluating the patient,delivering critical care at the bedside, discussing and evaluating pertinent data with consultants. Critical care time does not include time spent performing separately billable procedures or teaching. Total time spent performing critical care was 120 minutes. Discharge Plan Discharge Clinical Impression: Overdose, Delirium, Agitation Patient Disposition: Still a Patient Prescriptions: No Action amoxicillin-pot clavulanate 875-125 mg tablet 1 tab PO BID Qty: 14 0RF hydroxychloroquine 200 mg tablet 300 mg PO DAILY methadone 5 mg/0.5 mL syringe 5 mg PO DAILY meloxicam 15 mg tablet 15 mg PO DAILY ibuprofen 800 mg tablet 800 mg PO Q6H PRN Print Language: Romanian
--- NOTE | 2024-01-07 14:09 | ECG_ITS ---
Test Reason : OVERDOSE QTc EVALUATION Blood Pressure : / mmHG Vent. Rate : 164 BPM Atrial Rate : 164 BPM P-R Int : 120 ms QRS Dur : 084 ms QT Int : 292 ms P-R-T Axes : 066 086 071 degrees QTc Int : 482 ms Sinus tachycardia Nonspecific ST and T wave abnormality Abnormal ECG When compared with ECG of 20-AUG-2021 10:02, Vent. rate has increased BY 103 BPM T wave inversion less evident in Anterior leads Referred By: Apolinar Johnson Electronically Signed By:MICHELLE MONTGOMERY
[2024-01-07] MEDS: Midazolam HCl/PF 2 MG/2 ML VIAL 4 MG IM ×2 (14:10→15:13)
[2024-01-07] MEDS: Haloperidol Lactate 5 MG/ML VIAL 10 MG IM ×3 (14:10→15:13)
[2024-01-07] MEDS: diphenhydrAMINE HCL 50 MG/ML VIAL IVPUSH (14:10)
[2024-01-07] MEDS: Midazolam HCl/PF 2 MG/2 ML VIAL IM (14:40)
[2024-01-07 14:51] LABS: Appearance Urine Cloudy; Color Urine Yellow; Glucose Urine UA Negative (Negative); Leukocyte Esterase Urine Small (1+) (Negative); Nitrite Urine Negative (Negative); Specific Gravity - Urine <= 1.005 (1.005-1.025); UMIC TRIGGER UACC YES; Urine Blood Trace (Negative); Urine Ketones Negative (Negative); Urine Protein Negative (Neg-Trace)
[2024-01-07 15:01] LABS: Amphetamine Screen Urine Not Detected (Not Detect); Barbiturates, Urine Not Detected (Not Detect); Benzodiazepines Screen Urine Not Detected (Not Detect); Buprenorphine Scr Not Detected (Not Detect); Cannabinoid Screen Urine Not Detected (Not Detect); Cocaine Screen Urine POSITIVE (Not Detect); Fentanyl, urine POSITIVE (Not Detect); Methadone Screen, Urine Positive (Not Detect); Opiate Screen Urine Not Detected (Not Detect); Oxycodone Screen Urine Not Detected (Not Detect); Phencyclidine Screen Urine Not Detected (Not Detect)
[2024-01-07 15:53] LABS: UACC Culture Trigger YES
[2024-01-07 15:54] LABS: Bacteria Urine 4+ (None Seen); Hyaline Casts Urine 0-2 /LPF (0-2); RBC Urine 0-2 /HPF (0-2); WBC Urine 0-5 /HPF (0-5)
[2024-01-07] MEDS: chlorproMAZINE HCl 25 MG/ML AMPUL 50 MG IM ×2 (15:56→16:32)
--- NOTE | 2024-01-07 16:04 | PC.NURSE ---
Patient continues to be restless, trashing in bed, sitter at bedside, provider made aware, additional IM meds ordered.
[2024-01-07] MEDS: chlorproMAZINE HCl 25 MG/ML AMPUL 100 MG IM (16:59)
--- NOTE | 2024-01-07 17:17 | PC.NURSE ---
This is a late entry patient has been consistently trashing in bed, unable to lie still, pulling at restraints since they have been applied, intermittently speaking incoherently, trying to get OOB. 1:1 sitter at bedside, provider aware, IM medication ordered and given per mar.
[2024-01-07] MEDS: Lactated Ringers 1,000 ML 999 ML IV ×4 (17:22→22:01)
[2024-01-07] MEDS: Haloperidol Lactate 5 MG/ML VIAL 10 MG IVPUSH (18:01)
[2024-01-07 18:37] LABS: Basophils Percent Auto 0.1 % (0-2); Hematocrit 26.1 % (37.0-47.0); Hemoglobin 8.7 g/dl (12.0-16.0); Imm Gran Abs Auto 0.02 X10*3/uL (0.00-0.03); Imm Gran Pct Auto 0.2 % (0.0-0.4); Lymphocytes Absolute Auto 0.6 X10*3/uL (1.2-4.9); Lymphocytes Percent Auto 6.7 % (20-40); MANUAL DIFF FLAG NO; Mean Corpuscular HGB Conc 33.3 g/dl (31.0-35.0); Mean Corpuscular Hemoglobin 27.7 pg (27.0-33.0); Mean Corpuscular Volume 83.1 fL (80.0-98.0); Mean Platelet Volume 8.6 fL (9.4-12.3); Monocytes Absolute Auto 0.4 X10*3/uL (0.1-1.2); Monocytes Percent Auto 4.3 % (2-11); Neutrophils Absolute Auto 8.5 x10*3/uL (2.0-8.3); Neutrophils Percent Auto 88.7 % (45-73); Platelet Count 222 X10*3/uL (160-400); Red Blood Count 3.14 X10*6/uL (4.20-5.50); White Blood Count 9.6 X10*3/uL (4.8-10.8)
[2024-01-07 18:43] LABS: INTERNATIONAL NORM RATIO 1.2 (0.9-1.1); Prothrombin Time 14.7 SEC (11.1-13.3)
[2024-01-07 18:46] LABS: Partial Thromboplastin Time 26.7 SEC (26.0-36.8)
[2024-01-07 18:54] LABS: Lactic Acid 1.5 mmol/L (0.5-2.0)
[2024-01-07 18:56] LABS: Alanine Aminotransferase 12 U/L (0-31); Albumin Level 2.9 g/dL (3.5-5.0); Alkaline Phosphatase 77 U/L (39-117); Anion Gap 11 (12-20); Aspartate Amino Transferase 43 U/L (5-31); Bilirubin Total 0.4 mg/dL (0.0-1.0); Blood Urea Nitrogen 9 mg/dL (9-16); Calcium 8.2 mg/dL (8.4-10.2); Carbon Dioxide 26 mmol/L (22-29); Chloride 107 mmol/L (96-108); Creatinine Clr Calc Pharmacy 120.1; Estimated Glomerular Filt Rate > 60; Glucose Random 87 mg/dL (60-115); Lipase 13 U/L (8-78); Magnesium 1.7 mg/dL (1.6-2.6); Potassium 3.4 mmol/L (3.3-5.1); Sodium 141 mmol/L (135-145); Total Protein 7.3 g/dL (6.5-8.0)
[2024-01-07 19:02] LABS: Acetaminophen LAB < 3 mcg/mL (<30); Salicylate < 5.0 mg/dL (15-30)
[2024-01-07 19:03] LABS: Troponin-I High Sensitivity 11.4 ng/L (<3.5-17.0)
[2024-01-07 19:18] LABS: Influenza A PCR NEGATIVE (Negative); Influenza B PCR NEGATIVE (Negative); Resp Syncy Virus RNA Qual PCR NEGATIVE (Negative); SARS COV2 PCR INHOUSE NEGATIVE (Negative)
--- NOTE | 2024-01-07 19:37 | PC.NURSE ---
Spoke to patient's son's father Padmini Brody [phone] (he called EMS for patient) gave medical history of lupus and diagnosed mental issues . He currently has patient's cellphone and charger tester, is unable to find her house keys, if patient wakes up and is able to remember where her house keys are please call him.
--- NOTE | 2024-01-07 20:43 | PC.NURSE ---
Patient resting quietly on stretcher sleeping, all four restraints removed at this time, 1:1 sitter remains at bedside.
--- NOTE | 2024-01-07 22:12 | PC.NURSE ---
Patient continues to sleep on stretcher, extra jewelry that was able to be removed was removed and placed in specimen cup. Patient's belongings list completed, belongings brought to security to place in [facility].
[2024-01-07 22:50] LABS: Hematocrit 28.9 % (37.0-47.0); Hemoglobin 9.7 g/dl (12.0-16.0)
[2024-01-07 23:05] LABS: Acetaminophen LAB < 3 mcg/mL (<30); Salicylate < 5.0 mg/dL (15-30)
[2024-01-07 23:06] LABS: Alanine Aminotransferase 14 U/L (0-31); Albumin Level 2.8 g/dL (3.5-5.0); Alkaline Phosphatase 76 U/L (39-117); Anion Gap 10 (12-20); Aspartate Amino Transferase 64 U/L (5-31); Bilirubin Total 0.3 mg/dL (0.0-1.0); Blood Urea Nitrogen 8 mg/dL (9-16); Calcium 8.3 mg/dL (8.4-10.2); Carbon Dioxide 26 mmol/L (22-29); Chloride 107 mmol/L (96-108); Estimated Glomerular Filt Rate > 60; Glucose Random 90 mg/dL (60-115); Potassium 3.9 mmol/L (3.3-5.1); Sodium 139 mmol/L (135-145); Total Protein 7.3 g/dL (6.5-8.0)
--- NOTE | 2024-01-07 23:26 | PC.NURSE ---
Assumed care of pt at 2300. PT sleeping, respirations even and unlabored, VSS, 2l of LR infusing, 400cc remaining. Sitter at bedside. Plan of care ongoing.
[2024-01-08] VITALS (10 sets, daily range): BP systolic 101–128; BP diastolic 56–77; PULSE 79–106; RESP 14–24; TEMP 36.6–37.1; O2SAT 96–100
--- NOTE | 2024-01-08 | ECG_ITS ---
Test Reason : OVERDOSE Blood Pressure : / mmHG Vent. Rate : 095 BPM Atrial Rate : 095 BPM P-R Int : 158 ms QRS Dur : 088 ms QT Int : 384 ms P-R-T Axes : 081 085 078 degrees QTc Int : 482 ms Normal sinus rhythm Prolonged QT Abnormal ECG When compared with ECG of 08-JAN-2024 00:52, No significant change was found Referred By: Apolinar Johnson Electronically Signed By:MICHELLE MONTGOMERY
[2024-01-08] MEDS: Lactated Ringers 1,000 ML 125 ML IVCONT ×3 (00:07→22:40)
--- NOTE | 2024-01-08 00:43 | ECG_ITS ---
Test Reason : QTC check Blood Pressure : / mmHG Vent. Rate : 083 BPM Atrial Rate : 083 BPM P-R Int : 154 ms QRS Dur : 092 ms QT Int : 424 ms P-R-T Axes : 082 083 076 degrees QTc Int : 498 ms Normal sinus rhythm Prolonged QT Abnormal ECG When compared with ECG of 07-JAN-2024 15:42, Vent. rate has decreased BY 81 BPM Nonspecific T wave abnormality, worse in Anterior leads Nonspecific T wave abnormality no longer evident in Lateral leads Referred By: Kati Quick Electronically Signed By:MICHELLE MONTGOMERY
[2024-01-08] MEDS: Magnesium Sulfate/H2O 2 GM/50 ML PIGGYBACK IV (02:08)
--- NOTE | 2024-01-08 02:08 | PC.NURSE ---
Addendum entered by Kerrie Wilson 01/08/24 03:02: likely methadone due to point pupils. t/w called boyfriend who denies telling EMS that she ingested a specific number of pills Addendum entered by Kerrie Wilson 01/08/24 03:00: posion control noted that an amitriptyline OD is unlikely as her qrs is not prolonged and she would have had seizures. Original Note: t/w called poison control- the following recommendations were made: -2mg mag now, then q4h EKGS overnight with goal to keep QTC under 500. - Trend CK and LFTs order repeat 6 hours after last one schedule for 440 - Goals are to to keep potassium greater than 4 and mag greater than 2. If we don't given mg and keep potassium down then QTC would go up to 500. Because she has a history of opiate addiction, be cautious of narcan as she might go into withdrawal. if she has any jerking movement or gets agitated again, given benzos instead of haldol or thorazine.? Iv line placed in left wrist, MG infusing, VSS, pt assisted to the bathroom, BM passed.
[2024-01-08 04:52] LABS: Anion Gap 9 (12-20); Blood Urea Nitrogen 7 mg/dL (9-16); Calcium 8.1 mg/dL (8.4-10.2); Carbon Dioxide 26 mmol/L (22-29); Chloride 108 mmol/L (96-108); Creatinine Clr Calc Pharmacy 124.6; Estimated Glomerular Filt Rate > 60; Glucose Random 80 mg/dL (60-115); Potassium 3.6 mmol/L (3.3-5.1); Sodium 139 mmol/L (135-145)
--- NOTE | 2024-01-08 08:00 | ECG_ITS ---
Test Reason : overdose Blood Pressure : / mmHG Vent. Rate : 105 BPM Atrial Rate : 105 BPM P-R Int : 148 ms QRS Dur : 084 ms QT Int : 358 ms P-R-T Axes : 078 081 067 degrees QTc Int : 473 ms Sinus tachycardia Otherwise normal ECG When compared with ECG of 08-JAN-2024 04:04, QT has shortened Referred By: Apolinar Johnson Electronically Signed By:MICHELLE MONTGOMERY
--- NOTE | 2024-01-08 09:02 | PC.NURSE ---
Spoke to poison control who recommended repeat labs of LFTs and CK around 10AM along with maintenance fluids due to high CK
[2024-01-08] MEDS: Lactated Ringers 1,000 ML 999 ML IV (09:34)
--- NOTE | 2024-01-08 09:36 | PC.NURSE ---
Pt continues to sleep. VSS and sinus tach on the retail assistant, 100-110
[2024-01-08 09:54] LABS: Alanine Aminotransferase 17 U/L (0-31); Albumin Level 2.8 g/dL (3.5-5.0); Alkaline Phosphatase 82 U/L (39-117); Anion Gap 11 (12-20); Aspartate Amino Transferase 85 U/L (5-31); Bilirubin Total 0.4 mg/dL (0.0-1.0); Blood Urea Nitrogen 7 mg/dL (9-16); Calcium 8.2 mg/dL (8.4-10.2); Carbon Dioxide 22 mmol/L (22-29); Chloride 109 mmol/L (96-108); Estimated Glomerular Filt Rate > 60; Glucose Random 67 mg/dL (60-115); Potassium 3.6 mmol/L (3.3-5.1); Sodium 138 mmol/L (135-145); Total Protein 7.2 g/dL (6.5-8.0)
--- NOTE | 2024-01-08 10:50 | PC.NURSE ---
Pt wakes up, denies any pain. Reports she feels like she is withdrawing, requests her methadone dose. RN called Jennifer Gilmore to try to verify with no answer, will try again soon. Pt reports she took about 12 amitriptyline yesterday to sleep. Adamantly denies SI and HI. Sitter is still in place.
--- NOTE | 2024-01-08 14:50 | PC.NURSE ---
Pt continues to sleep, vitals have been stable. 2 more attempts made to verify pts methadone dose, unable to get through.
--- NOTE | 2024-01-08 15:34 | PC.NURSE ---
Waiting for bicarb drip from pharmacy
[2024-01-08] MEDS: Sodium Bicarbonate 8.4% 150 MEQ in Dextrose 5 % 850 ML IV (15:48)
--- NOTE | 2024-01-08 15:52 | PC.NURSE ---
called oskar whitt numerous amount of times through the day to try to verify the methadon dose but not able to get through
--- NOTE | 2024-01-08 16:14 | PM.IMHP ---
History of Present Illness Date of Service: 01/08/24 Attending physician on admission: Oziel Carpenter Chief Complaint: AMS Pt is a 33-year-old female with a PMH significant for?lupus, opiate use disorder, and myocarditis who presents to the ED for evaluation of overdose. Patient chemically sedated due to aggression/agitation and unable to provide HPI, which is status taken from chart and provider review. Patient's partner apparently called EMS reporting patient had overdosed on xylocaine and possibly amitriptyline. ?EMS noted patient had uncontrollable jerking and kicking, and did not have any noticeable response to intranasal Narcan. When patient arrived to the ED was extremely agitated, altered, and had spasmodic jerking movements. Was uncooperative with examination, unable/unwilling to answer ROS queries, and kept getting out of bed despite attempts at redirection. Was given multiple doses of Haldol and Versed IM, as well as Benadryl due to uncontrollable agitation. ED contacted poison control who thought patient's AMS was from opioid overdose rather than amitriptyline. In the ED pt was tachycardic up to 165, tachypneic up to 38, and with variable blood pressure. Labs were significant for normocytic anemia of 8.7/26.1, AST as high as 85, and CPK 2129 with repeat 5400, 7703, and 7111. Tox screen positive for methadone, fentanyl, and cocaine. Negative for flu, RSV, COVID. Initial EKG demonstrated sinus tachycardia of 164 with QTc of 482. Repeat EKGs normal sinus rhythm but continued to show prolonged QTc 498 and 473. Pt was treated with Haldol, midazolam diphenhydramine, chlorpromazine, 5L IVF, and started on a bicarb drip. Pt will be admitted to the hospital for treatment and further evaluation rhabdomyolysis in setting fentanyl overdose. Review of Systems Review of Systems: Unable to obtain due to patient's mentation [facility] Medical History Opiate dependence Lupus Family History Sister SLE (systemic lupus erythematosus related syndrome) Surgical History Hernia, umbilical Hx of cholecystectomy Social History Household Members: Unknown / Unable to assess Housing: Unknown / Unable to assess Housing Other:: to drowsy to answer Alcohol intake: never Patient Tobacco Use Status: Tobacco use Unknown Cigarettes Per Day: 6 Use of substances other than those prescribed or required for medical reasons: Yes Substance Use Type: Crack/Cocaine and Opiates Last Used Substance: Days (ago) Currently Displaying Signs/Symptoms of Drug Intoxication Withdrawal: Yes Advance Directives: No Advance Directives Information Provided: No Do you have a plan to hurt others: No Plan Recently lost weight without trying: No Nutrition Risks: No Nutritional Risk Patient : No : No Poor oral hygiene: No service: No Meds Allergies Allergy/AdvReac Type Severity Reaction Status Date / Time From REGLAN Allergy Mild Itching Uncoded 01/07/24 14:31 Active Medications: Current Medications Lactated Ringer's (Lr) 1,000 mls @ 125 mls/hr IVCONT .Q8H [facility] Last Admin: 01/08/24 14:31 Dose: 125 mls/hr Sodium Bicarbonate 150 meq/ (Dextrose) 1,000 mls @ 150 mls/hr IV .Q6H40M [facility] Last Admin: 01/08/24 15:48 Dose: 150 mls/hr Home Medications ?Medication ?Instructions ?Recorded ?Confirmed ?Last Taken ?Type hydroxychloroquine 200 mg tablet 300 mg PO DAILY 04/20/22 05/16/22 Unknown History ibuprofen 800 mg tablet 800 mg PO Q6H PRN 10/29/23 Unknown History meloxicam 15 mg tablet 15 mg PO DAILY 10/29/23 Unknown History methadone 10 mg/mL oral 0 mg PO DAILY 01/08/24 Unknown History concentrate (Methadone Intensol) Physical Exam Vital Signs and Narrative: Vital Signs: Last Vital Signs Temp 98.2 F 01/08/24 08:15 Pulse 101 H 01/08/24 16:04 Resp 19 01/08/24 16:04 BP 101/58 L 01/08/24 16:04 Pulse Ox 99 01/08/24 16:04 O2 Del Method Room Air 01/08/24 16:04 O2 Flow Rate 0 01/08/24 08:15 BMI result Body Mass Index 20.0 General: Patient obtunded due to chemical restraints, resting comfortably in bed. In no acute distress Resp: CTA bilaterally CVS: S1, S2, RRR GI: +BS, NT, no distention Skin: Warm, dry Neuro: Cranial nerves II-XII grossly intact bilaterally. Motor grossly intact bilaterally Extremities: No edema Results Labs 01/09/24 06:18 01/09/24 06:18 Labs: Laboratory Results - last 24 hr 01/07/24 01/07/24 01/07/24 18:18 18:29 18:30 MCV 83.1 MCH 27.7 MCHC 33.3 RDW 13.0 Plt Count 222 MPV 8.6 L Immature Gran % (Auto) 0.2 Neut % (Auto) 88.7 H Lymph % (Auto) 6.7 L [place] % (Auto) 4.3 Eos % (Auto) 0.0 Baso % (Auto) 0.1 Lymph # (Auto) 0.6 L [place] # (Auto) 0.4 Eos # (Auto) 0.0 Baso # (Auto) 0.0 Abs Immat Gran (auto) 0.02 Absolute Neuts (auto) 8.5 H Absolute Nucleated RBC 0.000 Nucleated RBC % (auto) 0.0 PT 14.7 H INR 1.2 H APTT 26.7 Anion Gap 11 L Estim Creat Clear Calc 120.1 Estimated GFR > 60 Random Glucose 87 Lactic Acid 1.5 Calcium 8.2 L D Magnesium 1.7 Total Bilirubin 0.4 AST 43 H ALT 12 Alkaline Phosphatase 77 Total Creatine Kinase 2128 H Troponin I High Sens 11.4 Total Protein 7.3 Albumin 2.9 L Lipase 13 Salicylates < 5.0 L Acetaminophen < 3 Influenza Type A (PCR) NEGATIVE Influenza Type B (PCR) NEGATIVE RSV RNA Qual (PCR) NEGATIVE SARS-CoV-2 RNA (RT-PCR) NEGATIVE Blood Type Antibody Screen 01/07/24 01/07/24 01/08/24 22:41 23:03 04:05 MCV MCH MCHC RDW Plt Count MPV Immature Gran % (Auto) Neut % (Auto) Lymph % (Auto) [place] % (Auto) Eos % (Auto) Baso % (Auto) Lymph # (Auto) [place] # (Auto) Eos # (Auto) Baso # (Auto) Abs Immat Gran (auto) Absolute Neuts (auto) Absolute Nucleated RBC Nucleated RBC % (auto) PT INR APTT Anion Gap 10 L 9 L Estim Creat Clear Calc 118.0 124.6 Estimated GFR > 60 > 60 Random Glucose 90 80 Lactic Acid Calcium 8.3 L 8.1 L Magnesium Total Bilirubin 0.3 AST 64 H ALT 14 Alkaline Phosphatase 76 Total Creatine Kinase 5404 H 7703 H Troponin I High Sens Total Protein 7.3 Albumin 2.8 L Lipase Salicylates < 5.0 L Acetaminophen < 3 Influenza Type A (PCR) Influenza Type B (PCR) RSV RNA Qual (PCR) SARS-CoV-2 RNA (RT-PCR) Blood Type A Positive Antibody Screen NEGATIVE 01/08/24 09:28 MCV MCH MCHC RDW Plt Count MPV Immature Gran % (Auto) Neut % (Auto) Lymph % (Auto) [place] % (Auto) Eos % (Auto) Baso % (Auto) Lymph # (Auto) [place] # (Auto) Eos # (Auto) Baso # (Auto) Abs Immat Gran (auto) Absolute Neuts (auto) Absolute Nucleated RBC Nucleated RBC % (auto) PT INR APTT Anion Gap 11 L Estim Creat Clear Calc 127.0 Estimated GFR > 60 Random Glucose 67 Lactic Acid Calcium 8.2 L Magnesium Total Bilirubin 0.4 AST 85 H ALT 17 Alkaline Phosphatase 82 Total Creatine Kinase 7111 H Troponin I High Sens Total Protein 7.2 Albumin 2.8 L Lipase Salicylates Acetaminophen Influenza Type A (PCR) Influenza Type B (PCR) RSV RNA Qual (PCR) SARS-CoV-2 RNA (RT-PCR) Blood Type Antibody Screen Assessment and Plan (1) Rhabdomyolysis: Status: Acute Plan Pt is a 33-year-old female with a PMH significant for?lupus, opiate use disorder, and myocarditis who presents to the ED for evaluation of overdose. Pt will be admitted to the hospital for treatment and further evaluation rhabdomyolysis in setting fentanyl overdose. Rhabdomyolysis Patient with CPK as high as 7703 in the ED In the setting of likely fentanyl overdose Patient given IVF and started on bicarb drip in the ED Will hold on bicarb for now, continue lactated Ringer's Follow CPK, BMP Acute encephalopathy In the setting of likely fentanyl overdose The patient chemically and physically restrained while in the ED Haldol and Versed p.r.n. for agitation/aggression Monitor mentation One-to-one sitter for now Anemia Patient's H&H initially 8.7/26.1 with repeat 9.7 and 28.9, lower than baseline Unclear etiology: No clear source of bleeding Follow CBC Opioid use disorder Continue methadone Addiction medicine consult Lupus Continue hydroxychloroquine Full Code Attending:?Dr. Carpenter DVT Prophylaxis: Lovenox Pt will require a hospitalization of at least two nights for treatment of?rhabdomyolysis and acute encephalopathy in the setting of likely fentanyl overdose. Patient will require administration of IVF, close monitoring of labs and mentation. Quality Stroke Does the patient have a stroke diagnosis?: No VTE Prior VTE?: No VTE Risk Level:: Medical - moderate - high VTE Device Contraindication: Treatment Not Indicated VTE Drug Contraindication: N/A - Med Ordered
--- NOTE | 2024-01-08 17:06 | MHC.RECOVSUP ---
? Reason for consult Recovery Support o Current location: ed06 o Identified substance use concern: NA - Support ? Intervention: o <del>ATS</del> <del>bed</del> <del>search</del> <del>started/completed/in</del> <del>process</del> <del>o</del> <del>MAT</del> <del>started</del> <del>or</del> <del>to</del> <del>be</del> <del>started</del> <del>o</del> <del>[facility]</del> <del>resources</del> <del>provided</del> <del>o</del> <del>Harm</del> <del>reduction</del> <del>discussion</del> <del>?</del> <del>Plan:</del> <del>o</del> <del>Referral</del> <del>to</del> <del>[facility]</del> <del>o</del> <del>Bed</del> <del>search</del> <del>in</del> <del>progress</del> <del>to</del> <del>o</del> <del>Follow</del> <del>up</del> <del>tomorrow</del> <del>o</del> <del>Patient</del> <del>awaiting</del> <del>crisis</del> <del>evaluation</del> <del>o</del> <del>Patient</del> <del>to</del> <del>follow</del> <del>up</del> <del>with</del> <del>[facility]</del> <del>after</del> <del>discharge</del> ? Additional information: Attempt to interview but Patient was not ready.
--- NOTE | 2024-01-08 17:43 | MHC.EDTECH ---
Pt assisted to and from the commode, pt had no further complaints
[2024-01-08] MEDS: Enoxaparin Sodium 40 MG/0.4 ML SYRINGE SUBCUT (18:04)
--- NOTE | 2024-01-08 18:15 | PHA.MEDREC ---
Pharmacy Consult ? Medication Reconciliation Pharmacy has completed the medication reconciliation.Patient unable to be interviewed, does not have recent claim history that shows she is on current medications. It is known that she goes to a methadone clinic, dose will need to be confirmed with patients clinic.
--- NOTE | 2024-01-08 18:39 | PC.NURSE ---
[facility], will pass along to next RN if no call. Multiple calls through will no answers
--- NOTE | 2024-01-08 19:04 | PC.NURSE ---
Bicarb drip paused per provider.
--- NOTE | 2024-01-08 19:31 | PC.NURSE ---
This RN assumed pt care @ 1900. Pt ca&ox3, no signs of distress. Pt resting in bed comfortably. Sitter at bedside. Plan of care ongoing.
--- NOTE | 2024-01-08 22:42 | PC.NURSE ---
Pt medicated per sep. Sitter remains Phlebotomy with pt. Plan of care ongoing.
[2024-01-08 23:04] LABS: Anion Gap 12 (12-20); Blood Urea Nitrogen 4 mg/dL (9-16); Carbon Dioxide 24 mmol/L (22-29); Chloride 107 mmol/L (96-108); Estimated Glomerular Filt Rate > 60; Glucose Random 106 mg/dL (60-115); Potassium 3.6 mmol/L (3.3-5.1); Sodium 139 mmol/L (135-145)
[2024-01-09] VITALS (9 sets, daily range): BP systolic 100–137; BP diastolic 55–73; PULSE 84–114; RESP 16–20; TEMP 36.4–38.1; O2SAT 98–100; BMI 20.7
--- NOTE | 2024-01-09 02:50 | PC.NURSE ---
This RN received no call from [facility] to confirm pts methadone dose. [email or web address] [phone] this RN unable to reach anyone. Will pass on to receiving nurse.
[2024-01-09] MEDS: Acetaminophen 325 MG TABLET 650 MG PO ×2 (04:06→15:41)
--- NOTE | 2024-01-09 04:10 | MHC.PIE ---
P.Restless I.Pt thrashing around in bed.States that she feel restless and anxious.Dr Huerta notified.Order for Haldol 5mg IM x 1 given E.Pt updated and med given with good effect.Cont to monitor.
[2024-01-09] MEDS: Haloperidol Lactate 5 MG/ML VIAL IM (04:26)
[2024-01-09] MEDS: Lactated Ringers 1,000 ML 125 ML IVCONT ×3 (06:20→23:02)
[2024-01-09 07:12] LABS: Hematocrit 29.1 % (37.0-47.0); Hemoglobin 9.5 g/dl (12.0-16.0); Mean Corpuscular HGB Conc 32.6 g/dl (31.0-35.0); Mean Corpuscular Hemoglobin 27.4 pg (27.0-33.0); Mean Corpuscular Volume 83.9 fL (80.0-98.0); Mean Platelet Volume 8.9 fL (9.4-12.3); Platelet Count 238 X10*3/uL (160-400); Red Blood Count 3.47 X10*6/uL (4.20-5.50); Red Cell Distribution Width 13.2 % (11.0-16.0); White Blood Count 9.8 X10*3/uL (4.8-10.8)
[2024-01-09 07:26] LABS: Anion Gap 8 (12-20); Blood Urea Nitrogen 3 mg/dL (9-16); Calcium 8.2 mg/dL (8.4-10.2); Carbon Dioxide 26 mmol/L (22-29); Chloride 106 mmol/L (96-108); Creatinine Clr Calc Pharmacy 124.4; Estimated Glomerular Filt Rate > 60; Glucose Random 121 mg/dL (60-115); Potassium 3.2 mmol/L (3.3-5.1); Sodium 137 mmol/L (135-145)
[2024-01-09] MEDS: 0.9 % Sodium Chloride Flush 3 ML SYRINGE IVFLUSH ×2 (08:29→15:15)
--- NOTE | 2024-01-09 09:12 | MHC.CM.PN ---
Patient appears unable to respond appropriately to questions and CM awaits a return call from only Contact/Friend/Harsh @ [phone]. Patient may benefit from both a Recovery Team and Care Team Consult to assist with disposition. CM has initiated and will follow for dc planning.
--- NOTE | 2024-01-09 12:10 | HO.PM.IMPN ---
Subjective Subjective Date of Service: 01/09/24 Interval History: seen and evaluated more alert and interactive denies suicidal thoughts , reports she was unable to sleep from SLE feels less agitated required IM dose of Haldol overnight Review of Systems Review of Systems: Yes all other systems are reviewed and are negative Physical Exam Vital Signs: Vital Signs: Last Vital Signs Temp 97.6 F 01/09/24 11:32 Pulse 87 01/09/24 11:32 Resp 19 01/09/24 11:32 BP 116/68 01/09/24 11:32 Pulse Ox 100 01/09/24 11:32 O2 Del Method Room Air 01/09/24 11:32 O2 Flow Rate 0 01/08/24 08:15 BMI result Body Mass Index 20.7 Const: Other: Constitutional : Awake, interactive, not in distress Neck : Normal inspection, Supple Cardiovascular : RRR, no JVP, no lower extremity edema Respiratory : good bilateral air entry, no crackles, wheezes or rhonchi Gastrointestinal: soft, lax, Normal bowel sounds, Non tender Skin : Warm, Dry Neurological : Alert & oriented x3, No focal deficit Objective Data Active Medications Acetaminophen (Acetaminophen 325 Mg Tablet) 650 mg PO Q6H PRN PRN Reason: Pain, Mild (Pain Scale 1-3) Last Admin: 01/09/24 04:06 Dose: 650 mg Documented By: MALIK Benzonatate (Benzonatate 100 Mg Capsule) 100 mg PO TID PRN PRN Reason: Cough Docusate Sodium (Docusate Sodium 100 Mg Capsule) 100 mg PO DAILY PRN PRN Reason: Constipation Enoxaparin Sodium (Enoxaparin Sodium 40 Mg/0.4 Ml Syringe) 40 mg SUBCUT Q24H [facility] Last Admin: 01/08/24 18:04 Dose: 40 mg Documented By: ROULA Haloperidol Lactate (Haloperidol Lactate 5 Mg/Ml Vial) 5 mg IM ONCE PRN PRN Reason: Agitation/Aggression Lactated Ringer's (Lr) 1,000 mls @ 125 mls/hr IVCONT .Q8H [facility] Last Admin: 01/09/24 06:20 Dose: 125 mls/hr Documented By: MALIK Melatonin (Melatonin 3 Mg Tablet) 6 mg PO BEDTIME PRN PRN Reason: Insomnia Midazolam HCl (Midazolam Hcl/Pf 2 Mg/2 Ml Vial) 4 mg IM ONCE PRN PRN Reason: Agitation/Aggression Sodium Chloride (0.9 % Sodium Chloride Flush 3 Ml Syringe) 3 ml IVFLUSH QSHIFT [facility] Last Admin: 01/09/24 08:29 Dose: 3 ml Documented By: RENEE Labs 01/09/24 06:18 01/09/24 06:18 Labs: Laboratory Results - last 24 hr 01/08/24 01/09/24 22:46 06:18 MCV 83.9 MCH 27.4 MCHC 32.6 RDW 13.2 Plt Count 238 MPV 8.9 L Absolute Nucleated RBC 0.000 Nucleated RBC % (auto) 0.0 Anion Gap 12 8 L Estim Creat Clear Calc 127.0 124.4 Estimated GFR > 60 > 60 Random Glucose 106 121 H Calcium 8.0 L 8.2 L Total Creatine Kinase 5060 H Microbiology Microbiology Results: Microbiology 01/07/24 14:41 Urine Culture - Final Urine clean catch - Urine cunningham top Assessment and Plan (1) Rhabdomyolysis: Status: Acute (2) Delirium: Status: Acute (3) Overdose: Status: Acute (4) Acute hypokalemia: Status: Acute Plan Pt is a 33-year-old female with a PMH significant for?lupus, opiate use disorder, and myocarditis who presents to the ED for evaluation of overdose. Pt will be admitted to the hospital for treatment and further evaluation rhabdomyolysis in setting fentanyl overdose. Acute toxic encephalopathy 2/2 overdose complicated by Acute Rhabdomyolysis CPK trending down to 5000 continue lactated Ringer's Haldol and Versed p.r.n. for agitation/aggression Follow CPK, BMP recurrent reorientation start diet get out of bed and moving Addiction team eval acute hypokalemia replacement given follow bmp Anemia of chronic disease stable, lower than baseline, No clear source of bleeding Follow CBC Opioid use disorder tox screen positive for cocaine and Fentanyl Continue methadone Addiction medicine consult Lupus Continue hydroxychloroquine Full Code DVT Prophylaxis: Lovenox Pt will require a hospitalization overnight for treatment of?rhabdomyolysis and acute encephalopathy in the setting of likely fentanyl/amytriptylline overdose. Patient will require administration of IVF, close monitoring of labs and mentation. Quality Stroke Does the patient have a stroke diagnosis?: No VTE Prior VTE?: No VTE Risk Level:: Medical - moderate - high VTE Device Contraindication: Treatment Not Indicated VTE Drug Contraindication: N/A - Med Ordered
--- NOTE | 2024-01-09 14:21 | HE.PHANOTE ---
Re: Methadone Last dose verified from [facility] for methadone 90 mg daily. Last dose given on 01/06/24 08:08.
--- NOTE | 2024-01-09 14:38 | ECG_ITS ---
Test Reason : elev hr Blood Pressure : / mmHG Vent. Rate : 128 BPM Atrial Rate : 128 BPM P-R Int : 120 ms QRS Dur : 080 ms QT Int : 302 ms P-R-T Axes : 077 081 060 degrees QTc Int : 440 ms Sinus tachycardia Nonspecific ST and T wave abnormality Abnormal ECG When compared with ECG of 08-JAN-2024 07:52, No significant change was found Referred By: Oziel Carpenter Electronically Signed By:MICHELLE MONTGOMERY
[2024-01-09] MEDS: methADONE HCl 20 MG/2 ML ORAL.CONC 60 MG PO (15:14)
--- NOTE | 2024-01-09 15:52 | HO.SUDE ---
Met with pt in 443 after consult placed to Addiction Medicine for fentanyl/xylazine overdose. Pt had presented to the ED after 911 was called due to overdose. Per triage note, When EMS arrived pt was breathing on her own, per report pt took xylazine and other pills. Pt extremely restless on the bed, unable to stay still. Uncontrollable jerking and kicking noted. Reports she took 13 amitriptyline in an attempt to go to sleep, denies taking meds to hurt herself. Extremely hard to obtain vitals as patient is all over the stretcher. Paramedics did administer Narcan with no significant change in patient's altered mental status. Upon evaluation, pt admitted for treatment of rhabdomyolysis. Pt sitting in bed, awake, alert, difficult to engage in conversation, guarded. Pt reports she uses heroin/fentanyl, 5-10 bags daily, INH. Pt reports this is a decrease in use, had been using approx 5 bundles prior to methadone initiation. Pt reports she has been receiving methadone through [facility] x 1 year, currently at 90 mg. Has been at this dose approx 1 month. Pt denies hx overdoses. Pt does not believe it was an opioid overdose that brought her to the hospital, states It was a bad reaction from my other medications. Pt reports hx ATS admissions (over 10 times), last admission last year at [facility]. Pt denies hx further inpatient treatment. Pt reports she lives alone. Discussed harm reduction, ALEXEY tx and resources including inpatient and outpatient, and recovery coaching. Pt declines referrals at this time. Pt accepting of written resources and t/w contact information if needed. Pt denies questions or concerns for t/w.
[2024-01-09] MEDS: Enoxaparin Sodium 40 MG/0.4 ML SYRINGE SUBCUT (17:56)
[2024-01-10 03:00] VITALS: BP 100/52; PULSE 107; RESP 20; TEMP 37.6; O2SAT 96
[2024-01-10] MEDS: Lactated Ringers 1,000 ML 125 ML IVCONT (06:19)
[2024-01-10 07:24] LABS: Hematocrit 27.4 % (37.0-47.0); Hemoglobin 8.9 g/dl (12.0-16.0); Mean Corpuscular HGB Conc 32.5 g/dl (31.0-35.0); Mean Corpuscular Hemoglobin 27.6 pg (27.0-33.0); Mean Corpuscular Volume 84.8 fL (80.0-98.0); Mean Platelet Volume 8.8 fL (9.4-12.3); Platelet Count 244 X10*3/uL (160-400); Red Blood Count 3.23 X10*6/uL (4.20-5.50); Red Cell Distribution Width 13.3 % (11.0-16.0); White Blood Count 10.1 X10*3/uL (4.8-10.8)
[2024-01-10 07:45] LABS: Anion Gap 7 (12-20); Blood Urea Nitrogen 3 mg/dL (9-16); Calcium 8.1 mg/dL (8.4-10.2); Carbon Dioxide 27 mmol/L (22-29); Chloride 107 mmol/L (96-108); Creatinine Clr Calc Pharmacy 134.2; Estimated Glomerular Filt Rate > 60; Glucose Random 74 mg/dL (60-115); Potassium 3.7 mmol/L (3.3-5.1); Sodium 137 mmol/L (135-145)
[2024-01-10 07:55] VITALS: BP 105/62; PULSE 103; RESP 20; TEMP 36.8; O2SAT 98
[2024-01-10] MEDS: methADONE HCl 20 MG/2 ML ORAL.CONC 60 MG PO (07:59)
--- NOTE | 2024-01-10 08:13 | PM.EVENT ---
Event Note Date of Service: 01/10/24 Event Note: Addiction consult placed for patient following overdose SUDE completed by freight car repairer No follow up indicated at this time Time Spent With Patient Time: Total time managing care of this patient today ____ minutes.
--- NOTE | 2024-01-10 10:57 | MHC.CM.PN ---
Pt is medically cleared for discharge home self-care, pts son's father will transport her home.
[2024-01-10 11:08] VITALS: BP 104/51; PULSE 94; RESP 20; TEMP 36.7; O2SAT 98
--- NOTE | 2024-01-10 12:00 | PM.DS ---
DS: Providers Provider Date of Service: 01/10/24 Date of admission: 01/08/24 16:58 Primary care physician: Unknown Physician Consults: 01/08/24 16:58 Addiction Medicine Routine Consulting Provider: Addiction Covering Reason for consultation: Fentanyl/xylazine overdose 01/10/24 07:36 Consult to Care Team Routine Comment: Reason for consultation: medically clear, placemenet evaluation. DS: Diagnosis Discharge Diagnosis (1) Rhabdomyolysis: Status: Acute (2) Delirium: Status: Acute (3) Overdose: Status: Acute (4) Acute hypokalemia: Status: Acute (5) Agitation: Status: Acute DS: Summary Hospital Course Hospital Course: Admission note HPI Pt is a 33-year-old female with a PMH significant for?lupus, opiate use disorder, and myocarditis who presents to the ED for evaluation of overdose. Patient chemically sedated due to aggression/agitation and unable to provide HPI, which is status taken from chart and provider review. Patient's partner apparently called EMS reporting patient had overdosed on xylocaine and possibly amitriptyline. ?EMS noted patient had uncontrollable jerking and kicking, and did not have any noticeable response to intranasal Narcan. When patient arrived to the ED was extremely agitated, altered, and had spasmodic jerking movements. Was uncooperative with examination, unable/unwilling to answer ROS queries, and kept getting out of bed despite attempts at redirection. Was given multiple doses of Haldol and Versed IM, as well as Benadryl due to uncontrollable agitation. ED contacted poison control who thought patient's AMS was from opioid overdose rather than amitriptyline. In the ED pt was tachycardic up to 165, tachypneic up to 38, and with variable blood pressure. Labs were significant for normocytic anemia of 8.7/26.1, AST as high as 85, and CPK 2129 with repeat 5400, 7703, and 7111. Tox screen positive for methadone, fentanyl, and cocaine. Negative for flu, RSV, COVID. Initial EKG demonstrated sinus tachycardia of 164 with QTc of 482. Repeat EKGs normal sinus rhythm but continued to show prolonged QTc 498 and 473. Pt was treated with Haldol, midazolam diphenhydramine, chlorpromazine, 5L IVF, and started on a bicarb drip. Pt will be admitted to the hospital for treatment and further evaluation rhabdomyolysis in setting fentanyl overdose. Hospital course # Acute toxic encephalopathy secondary to overdose on Amitriptyline complicated by Acute Rhabdomyolysis with Elevated CPK that trended down during hospital stay while on IV fluids to 1600 with no kidney injury. tolerated diet well. Her mental status improved back to baseline after she needed Haldol and Versed p.r.n. for agitation. She denied any suicidal thoughts or intentions. seen by care team who offered outpatient resources and recommended Narcan on discharge. tolerated diet and was able to get out of bed and moving acute hypokalemia was corrected as she received replacement # Anemia of chronic disease stable, lower than baseline, No clear source of bleeding. To be followed as outpatient. # Opioid use disorder tox screen positive for cocaine and Fentanyl. restarted on Methadone 60 mg. To follow with wound clinic as outpatient. seen by Addiction team who recommended outpatient follow up and Narcan on discharge. Discharge plan Avoid drugs Take home medications with moderation, avoid taking extra pills Narcan as needed for overdose Follow up with recovery team as needed as outpatient Time Attestation Discharge Coordination Time (in mins): 42 Quality: Safe Use of Opioids Does Pt have an Active Cancer Diagnosis on the Problem List?: No Quality: Stroke Does the patient have a stroke diagnosis?: No Physical Exam Vital Signs: Vital Signs: Last Vital Signs Temp 98.0 F 01/10/24 11:08 Pulse 94 01/10/24 11:08 Resp 20 01/10/24 11:08 BP 104/51 L 01/10/24 11:08 Pulse Ox 98 01/10/24 11:08 O2 Del Method Room Air 01/10/24 11:08 O2 Flow Rate 0 01/08/24 08:15 BMI result Body Mass Index 20.7 Const: Other: Constitutional : Awake, interactive, not in distress Neck : Normal inspection, Supple Cardiovascular : RRR, no JVP, no lower extremity edema Respiratory : good bilateral air entry, no crackles, wheezes or rhonchi Gastrointestinal: soft, lax, Normal bowel sounds, Non tender Skin : Warm, Dry Neurological : Alert & oriented x3, No focal deficit DS: Data Data Completed and Pending Labs on day of discharge: Laboratory Results - last 24 hr 01/10/24 06:31 WBC 10.1 RBC 3.23 L Hgb 8.9 L Hct 27.4 L MCV 84.8 MCH 27.6 MCHC 32.5 RDW 13.3 Plt Count 244 MPV 8.8 L Absolute Nucleated RBC 0.000 Nucleated RBC % (auto) 0.0 Sodium 137 Potassium 3.7 Chloride 107 Carbon Dioxide 27 Anion Gap 7 L BUN 3 L Creatinine 0.51 Estim Creat Clear Calc 134.2 Estimated GFR > 60 Random Glucose 74 Calcium 8.1 L Total Creatine Kinase 1691 H Discharge Plan Discharge Anticipated Discharge Date/Time: 01/10/24 11:56 Patient Disposition: Home, Self-Care Discharge Diagnosis: Rhabdomyolysis Low potassium overdose with agitation Referrals: Physician,Unknown J [Primary Care Provider] - 1 Week Discharge Medications: New naloxone [Narcan] 4 mg/actuation spray,non-aerosol 1 spray intranasal Q2M Qty: 2 0RF Rx Instructions: spray 1 dose into ONE nostril; alternate nostrils w each dose until help arrives Continued methadone [Methadone Intensol] 10 mg/mL Concentrate 90 mg PO DAILY hydroxychloroquine 200 mg tablet 300 mg PO DAILY meloxicam 15 mg tablet 15 mg PO DAILY ibuprofen 800 mg tablet 800 mg PO Q6H PRN Discharge Orders: Discharge Order (Routine); Ordered 01/10/24 Ordered By: Oziel Carpenter Diet: Advance to usual diet Activity on Discharge: As tolerated Stand Alone Forms: Patient Portal Discharge page Print Language: Tamazight Care Plan Goals: Avoid drugs Take home medications with moderation, avoid taking extra pills Narcan as needed for overdose Follow up with recovery team as needed as outpatient Health Concerns: Read below Plan of Treatment: Read below Assessment: Read below
== END 2024-01-10 13:14 | disposition home or self-care (01) | DRG 812 ==
LOC: HO.ED 21:56 → HO.EDOVER 01-08 17:09 → HO.IMC 01-09 01:44
PROVIDERS: Emergency Medicine; Admitting Provider Student in an Organized Health Care Education/Training Program; Emergency Provider Emergency Medicine Emergency Medical Services; PCP Internal Medicine; Visit Provider Student in an Organized Health Care Education/Training Program
DX: T40.411A Poisoning by fentanyl or fentanyl analogs, accidental (unintentional), initial encounter (principal); G92.8 Other toxic encephalopathy; M62.82 Rhabdomyolysis; M32.9 Systemic lupus erythematosus, unspecified; D63.8 Anemia in other chronic diseases classified elsewhere; R41.0 Disorientation, unspecified; E87.6 Hypokalemia; F11.20 Opioid dependence, uncomplicated; Z20.822 Contact with and (suspected) exposure to COVID-19; Z79.899 Other long term (current) drug therapy
CPT/HCPCS: 0241U; 36415; 80048; 80053; 80143; 80179; 80307; 81001; 82550; 83605; 83690; 83735; 84484; 85014; 85018; 85025; 85027; 85610; 85730; 86850; 86900; 86901; 87086; 93005; 99285; J1200; J1630; J1650; J2250; J3230; J3475; J7120; S9485

== ENCOUNTER → 2024-01-07 14:09 | Outpatient (BNV) | payer OTHER, SELFPAY | PROVIDERS: Admitting Provider Student in an Organized Health Care Education/Training Program; Emergency Provider Emergency Medicine Emergency Medical Services; Visit Provider Internal Medicine | DX: R00.0 Tachycardia, unspecified (principal) | CPT/HCPCS: 93010 ==

== ENCOUNTER → 2024-01-08 00:43 | Outpatient (BNV) | payer OTHER, SELFPAY | PROVIDERS: Admitting Provider Student in an Organized Health Care Education/Training Program; Emergency Provider Emergency Medicine Emergency Medical Services; Visit Provider Internal Medicine | DX: R00.0 Tachycardia, unspecified (principal); R94.31 Abnormal electrocardiogram [ECG] [EKG] | CPT/HCPCS: 93010 ==

== ENCOUNTER 2024-01-08 16:58 | Outpatient (BNV) | payer OTHER, SELFPAY | END 2024-01-09 14:38 | PROVIDERS: Admitting Provider Student in an Organized Health Care Education/Training Program; Emergency Provider Emergency Medicine Emergency Medical Services; Visit Provider Internal Medicine | DX: R00.0 Tachycardia, unspecified (principal) | CPT/HCPCS: 93010 ==

== ENCOUNTER → 2024-01-08 16:58 | Outpatient (BNV) | payer OTHER, SELFPAY | PROVIDERS: Admitting Provider Student in an Organized Health Care Education/Training Program; Emergency Provider Emergency Medicine Emergency Medical Services; Visit Provider Student in an Organized Health Care Education/Training Program | DX: M62.82 Rhabdomyolysis (principal); R41.0 Disorientation, unspecified; T50.901A Poisoning by unspecified drugs, medicaments and biological substances, accidental (unintentional), initial encounter; E87.6 Hypokalemia; R45.1 Restlessness and agitation | CPT/HCPCS: 99223; 99232; 99239 ==

== ENCOUNTER 2024-02-11 09:49 | Outpatient (AMB) | payer OTHER, SELFPAY ==
--- NOTE | 2024-02-11 09:58 | A.OFFVIS_ITS ---
Vital Signs 02/11/24 10:02 Weight 116 lb BP 117/76 Blood Pressure Location Rt brachial Position Sitting Pulse 95 Intake Visit Reasons: re-discuss surgery, ? clearance Intake Note: Patient here to re-discuss hernia surgery. Last visit 10-29-2023. Patient c/o: on and off abdominal pain. Of note: patient no showed cardio and pulmonology appointments. Nutrition Associate Required: No Accompanied by: Harsh Boudreaux sons father Allergies From [facility] Allergy (Mild, Uncoded 02/11/24 09:59) Itching HPI Comments Details: Patient whom I had seen in the past who presents here with her stepfather because of increased in size and symptomatology of her umbilical hernia. Patient has had a collection of ?social issues ?that have delayed her surgery. She has not gone for preoperative clearance which had been scheduled for her apparently on 2 different occasions. According to her stepfather, patient is working to make ?better choices?. As noted above, I have seen the patient in the past. She is tolerating a diet. She has constipation which has been a longstanding issue. I made recommendations regarding this. [facility] Medical History Opiate dependence Lupus Surgical History Hernia, umbilical Hx of cholecystectomy Family History Sister SLE (systemic lupus erythematosus related syndrome) Social History (Updated 02/11/24 @ 10:01 by MARY LOU Parker) Household Members: Unknown / Unable to assess Housing: Unknown / Unable to assess Housing Other:: to drowsy to answer Alcohol intake: never Patient Tobacco Use Status: Tobacco use Unknown Tobacco use type: Smokeless Tobacco Cigarettes Per Day: 6 Substance Use Type: Crack/Cocaine and Opiates service: No Physical Exam Vital Signs: Last Vital Signs Pulse 95 02/11/24 10:02 BP 117/76 02/11/24 10:02 Chest Other: Chest breath sounds bilaterally, HS 1 in 2 GI Other: Patient was examined standing with Valsalva. Groin exam negative. Abdomen soft. Markedly enlarged umbilical hernia measuring approximately 5 cm irreducible. Assessment & Plan Assessment & Plan (1) Incarcerated umbilical hernia: Code(s): K42.0 - Umbilical hernia with obstruction, without gangrene Category: Surgical Plan I once again discussed with the patient and with her stepfather who was present on this visit the risks, benefits, and alternatives of open umbilical hernia repair with mesh which included but not limited to bleeding, infection, recurrence, numbness, pain, scarring, bowel injury and the patient wishes to proceed. Patient has been strongly encouraged to obtain the arranged preop clearance consultations and then surgery will be scheduled. All questions answered. Arrangements made for this. Coding Level of Care Code Est Pt Level 5 (39868) Diagnoses Incarcerated umbilical hernia K42.0
[2024-02-11 10:02] VITALS: BP 117/76; PULSE 95
== END 2024-02-11 10:14 | disposition home or self-care (01) ==
PROVIDERS: PCP Internal Medicine; Visit Provider Surgery
DX: K42.0 Umbilical hernia with obstruction, without gangrene (principal)
CPT/HCPCS: 99214

== ENCOUNTER → 2024-02-11 09:49 | Outpatient (BNVA) | payer OTHER, SELFPAY | PROVIDERS: PCP Internal Medicine; Visit Provider Surgery | DX: K42.0 Umbilical hernia with obstruction, without gangrene (principal) | CPT/HCPCS: 99212 ==

== ENCOUNTER 2024-03-16 09:55 | Outpatient (REF) | payer OTHER, SELFPAY | END 2024-03-16 09:56 | disposition home or self-care (01) | LOC: HO.LAB 09:55 | PROVIDERS: PCP Internal Medicine; Referring Provider Surgery; Visit Provider Nurse Practitioner Family | DX: Z01.811 Encounter for preprocedural respiratory examination (principal); R06.00 Dyspnea, unspecified; M32.9 Systemic lupus erythematosus, unspecified; R94.31 Abnormal electrocardiogram [ECG] [EKG]; Z98.890 Other specified postprocedural states; Z01.810 Encounter for preprocedural cardiovascular examination | CPT/HCPCS: 93005; 94010; 99202; 99212 ==

== ENCOUNTER 2024-03-16 09:55 | Outpatient (AMB) | payer OTHER, SELFPAY ==
[2024-03-16 10:09] VITALS: BP 98/56; PULSE 103; O2SAT 98; BMI 21.8
--- NOTE | 2024-03-16 10:09 | MHC.OFFVIS ---
Vital Signs 03/16/24 10:09 Height 5 ft 4 in Weight 126 lb 12.253 oz BMI 21.8 BP 98/56 L Blood Pressure Location Rt brachial Position Sitting Pulse 103 H Pulse Source Pulse Oximeter Pulse Oximetry (%) 98 Oxygen Delivery Method Room Air Intake Visit Reasons: Pulm Clearance/Hernia Repair (Dr. Manzano) Allergies metoclopramide [From Reglan] Allergy (Severe, Verified 03/16/24 14:13) itching all over, shaking HPI HPI Pulm Clearance/Hernia Repair (Dr. Manzano): Details: Venita is a pleasant 33 year old female, former smoker with less than 10 pack year history, with underlying Lupus, MT in 2022, h/o substance abuse on methadone and anemia. She was referred by Dr. Manzano for perioperative pulmonary evaluation for proposed umbilical hernia repair. She is accompanied by a friend today. In the past she has reported dyspnea on exertion, with associated burning sensation of chest which she attributes to Lupus. She currently denies any dyspnea however continues to report pleuritic discomfort. She has been maintained on prednisone in the past for this pleuritic discomfort but has been without for a few weeks. She is under the care of the [facility] in [place]. During this appointment patient received a message from the pharmacy that her prednisone rx was ready. She denies any history of asthma. She denies any pertinent family history. She denies any occupational exposures. Of note, patient seen at [facility] in December 2023 for overdose, tox+ for methadone, cocaine and fentanyl. [facility] Medical History (Updated 03/18/24 @ 13:37 by Kati Goodwin NP) Umbilical hernia Hx of drug overdose (01/10/24) IUD (intrauterine device) in place Anemia Constipation Hx of myocardial infarction Lupus Opiate dependence Lupus Surgical History (Updated 03/16/24 @ 18:04 by Shirley Larson NP-C) Hx of cardiac catheterization (~2021) Hx of cholecystectomy (~2019) Family History Sister SLE (systemic lupus erythematosus related syndrome) Social History Household Members: Unknown / Unable to assess Housing Other:: to drowsy to answer Are you a primary personal care home administrator to a significant other at home: No Do you presently have visiting nurse or other home services: No Alcohol intake: never Patient Tobacco Use Status: Former Tobacco user Tobacco use type: Cigarette Cigarettes Per Day: 6 Substance Use Type: Crack/Cocaine and Opiates service: No Review of Systems Const Denies chills, Denies excessive sweating, Denies fever(s), Denies headache(s) and Denies night sweats Eyes Denies dry eyes, Denies irritation and Denies itchy eyes ENT Reports Normal hearing present, Denies headache(s), Denies nasal congestion, Denies nasal discharge, Denies post nasal drip and Denies sore throat Card Denies claudication, Denies leg edema, Denies dyspnea, Denies dyspnea on exertion, Denies orthopnea and Denies paroxysmal nocturnal dyspnea Resp Denies chest congestion, Denies cough, Denies excessive phlegm production, Denies pain on inspiration, Denies pain with cough, Denies dyspnea, Denies dyspnea on exertion, Denies stridor and Denies wheezing Musc Denies myalgias Neuro Reports Normal hearing present and Denies headache(s) Endo Denies excessive sweating Kings/Lymph Denies lymphadenopathy Aller/Immun Denies itchy eyes, Denies seasonal rhinorrhea and Denies wheezing Physical Exam Vital Signs: Last Vital Signs Pulse 103 H 03/16/24 10:09 BP 98/56 L 03/16/24 10:09 Pulse Ox 98 03/16/24 10:09 Oxygen Delivery Method Room Air 03/16/24 10:09 BMI result Body Mass Index 21.8 Const General: cooperative, healthy appearing, no acute distress, well developed and alert Orientation/consciousness: patient oriented x3 Limitations: no limitations HEENT Head: Yes normal to inspection, Yes normocephalic and Yes atraumatic Ears: hearing grossly normal bilaterally and external ears normal Eyes General: appearance normal, both eyes and all related structures Eyelids: Yes eyelids normal Sclerae: sclerae normal EOM: EOMs intact bilaterally Neck Neck: Yes normal visual inspection and Yes no lymphadenopathy Lymphatic: no lymphadenopathy noted Chest Chest palpation & inspection: normal inspection of the chest Resp Effort & Inspection: normal respiratory effort, able to speak in complete sentences, no audible wheezes, no cough, no stridor, not tachypneic, no tripod positioning and no use of accessory muscles Auscultation: clear to auscultation bilaterally Cardio Jugular venous distension: no JVD Rate: regular rate Rhythm: regular rhythm Skin Other: warm, dry General skin exam: no rashes or lesions noted Neuro General: patient oriented x3 Cranial nerves: Yes Normal hearing present Cognition (Neuro): normal cognition Gait exam (Neuro): Normal gait present Extrem General: Yes normal to inspection, Yes capillary refill normal, Yes no clubbing, cyanosis or edema and Yes no pedal edema Psych Appearance: grossly normal and well kempt Speech and movement: Clear speech present and Restless speech present (pt constantly moving throughout room) Affect: Blunted affect present Attitude: cooperative Thought process: Normal thought process present Thought content: Normal thought content present Insight: Fair insight present (Psych) Judgement: Fair judgement present (Psych) Office Procedures Spirometry Testing Spirometry Comments: In office spirometry completed to the best of patient's ability. [place]. [address]- Spirometry Assessment & Plan Assessment & Plan (1) Preop pulmonary/respiratory exam: Code(s): Z01.811 - Encounter for preprocedural respiratory examination Category: Medical (2) Dyspnea: Code(s): R06.00 - Dyspnea, unspecified Category: Medical (3) Lupus: Code(s): M32.9 - Systemic lupus erythematosus, unspecified Category: Medical Plan Venita presents for perioperative pulmonary evaluation for proposed umbilical hernia repair. At present denies any cough, wheezing, chest tightness or dyspnea. Previously she has had intermittent dyspnea on exertion. Will send for PFT to assess for any obstructive or restrictive defect. She does note occasional pleuritic discomfort which is typically managed with daily prednisone for Lupus prescribed by rheumatology. She has been out for some time and will be picking up new prescription today. Will send for CXR. Once PFT and CXR performed, will be able to further risk stratify for upcoming surgery. All questions were answered and patient is in agreement of plan. Orders: Orders AMB Spirometry Testing 03/16/24 R06.00 - Dyspnea, unspecified XR chest 2V 03/17/24 R06.00 - Dyspnea, unspecified PFT pulmonary function test 03/16/24 R06.00 - Dyspnea, unspecified, Z01.811 - Encounter for preprocedural respiratory examination Coding Level of Care Code New Pt Level 4 (53190) Diagnoses Preop pulmonary/respiratory exam Z01.811 Dyspnea R06.00 Lupus M32.9 CPT Codes Spirometry - CPT: 39141- Spirometry ([id number])
== END 2024-03-16 11:39 | disposition home or self-care (01) ==
PROVIDERS: PCP Internal Medicine; Referring Provider Surgery; Visit Provider Nurse Practitioner Family
DX: R06.00 Dyspnea, unspecified (principal); M32.9 Systemic lupus erythematosus, unspecified
CPT/HCPCS: 94010; 94727; 94729; 99204

== ENCOUNTER 2024-03-16 14:08 | Outpatient (AMB) | payer OTHER, SELFPAY ==
[2024-03-16 14:12] VITALS: BP 90/62; PULSE 87; BMI 21.8
--- NOTE | 2024-03-16 14:12 | MHC.OFFVIS ---
Vital Signs 03/16/24 14:12 Height 5 ft 4 in Weight 126 lb 15.78 oz BMI 21.8 BP 90/62 Blood Pressure Location Lt brachial Position Sitting Pulse 87 Pulse Source Monitor Intake Visit Reasons: pre op surgery 03/27/24 Internet Sales Consultant Required: No Allergies metoclopramide [From Reglan] Allergy (Severe, Verified 03/16/24 14:13) itching all over, shaking Medication List - Last Reconciled 03/16/24 by Shirley Larson, [employer]-C amitriptyline 10 mg PO BEDTIME hydroxychloroquine 300 mg PO DAILY levonorgestrel (Mirena) mcg intrauterine methadone (Methadone Intensol) 44 mg PO DAILY naloxone 4 mg/actuation (Narcan) 1 spray intranasal Q2M PRN prednisone 5 mg PO DAILY HPI HPI pre op surgery 03/27/24 : Details: Venita is a 33-year-old female with past medical history of substance abuse and now on methadone, cardiac catheterization 08/2021 for chest discomfort and T-wave inversions showing normal coronary arteries, who has an umbilical hernia and is in need of preop cardiovascular clearance. Today she reports that she has been feeling well except for abdominal discomfort from her hernia. She denies any chest discomfort at rest or with activity. No heart palpitations, presyncope, syncope. No shortness of breath, PND, orthopnea or edema. She is mostly sedentary. If needed she says she can climb a flight of stairs without symptoms. Takes meds as directed. Friend present. [facility] Medical History (Updated 03/16/24 @ 16:32 by Shirley Larson, LEESA-C) Umbilical hernia Hx of drug overdose (01/10/24) IUD (intrauterine device) in place Anemia Constipation Hx of myocardial infarction Lupus Opiate dependence Lupus Surgical History (Updated 03/16/24 @ 18:04 by Shirley Larson, [employer]-C) Hx of cardiac catheterization (~2021) Hx of cholecystectomy (~2019) Family History Sister SLE (systemic lupus erythematosus related syndrome) Social History Household Members: Unknown / Unable to assess Housing Other:: to drowsy to answer Are you a primary child care center assistant director to a significant other at home: No Do you presently have visiting nurse or other home services: No Alcohol intake: never Patient Tobacco Use Status: Former Tobacco user Tobacco use type: Cigarette Cigarettes Per Day: 6 Substance Use Type: Crack/Cocaine and Opiates service: No Review of Systems Const All systems reviewed & are unremarkable except as noted in HPI and below ENT Denies dizziness Card Denies chest pain, Denies chest pain at rest, Denies chest pain with activity, Denies rapid heart rate, Denies pedal edema, Denies edema, Denies leg edema, Denies lightheadedness, Denies palpitations, Denies dyspnea, Denies dyspnea on exertion and Denies orthopnea Resp Denies cough, Denies dyspnea and Denies dyspnea on exertion GI Details: umbilical hernia Denies hematochezia and Denies change in stool character Musc Denies abnormal gait, Denies limited range of motion, Denies muscle cramps, Denies muscle weakness, Denies numbness, Denies radiating pain into limb, Denies stiffness and Denies tingling Neuro Denies abnormal gait, Denies dizziness, Denies numbness and Denies tingling Endo Denies palpitations Physical Exam Vital Signs: Last Vital Signs Pulse 87 03/16/24 14:12 BP 90/62 03/16/24 14:12 BMI result Body Mass Index 21.8 Const General: cooperative, comfortable and no acute distress Orientation/consciousness: patient oriented x3 Neck Neck: Yes normal visual inspection and Yes no JVD Resp Effort & Inspection: normal respiratory effort Auscultation: clear to auscultation bilaterally, no rales, no rhonchi and no wheezes Cardio Jugular venous distension: no JVD Rate: regular rate Rhythm: regular rhythm Heart sounds: S1 normal heart sound present, S2 normal heart sound present, no murmurs and no rubs Neuro General: patient oriented x3 Extrem General: Yes normal to inspection and No no pedal edema Psych Appearance: grossly normal Mental Status: mental status grossly normal Speech and movement: Normal speech and movement present Office Procedures EKG Details: Today, read by me, normal sinus rhythm, prolonged QTC, 498 milliseconds, rate 87, normal MD and QRS intervals. [id number], Complete Assessment & Plan Assessment & Plan (1) Prolonged Q-T interval on ECG: Code(s): R94.31 - Abnormal electrocardiogram [ECG] [EKG] Category: Medical Plan: EKG done today as part of preop clearance shows sinus rhythm with prolonged QT interval, rate 87, QTC 498 milliseconds, normal QRS and MD intervals. She has not had any presyncope, syncope. No reports of heart palpitations. She is on methadone, amitriptyline and hydroxychloroquine each of which can prolong QT interval. She did have labs done today showing potassium 4.4, calcium 9.2, magnesium 2.0. She needs to avoid any further medications that prolong the QT interval. Informed of this finding. (2) Hx of cardiac catheterization: Onset Date: ~2021 Comment: 09/13/2021, normal coronary arteries Code(s): Z98.890 - Other specified postprocedural states Category: Surgical Plan: Prior reports of chest discomfort. Normal coronary arteries on cardiac catheterization. At this time she denies any chest discomfort or shortness of breath. (3) Preop cardiovascular exam: Code(s): Z01.810 - Encounter for preprocedural cardiovascular examination Category: Medical Plan: Preop for umbilical hernia repair general anesthesia. She has no CAD. Last echocardiogram 08/18/2021 showed normal EF, normal RV and PA pressures. EKG done today shows sinus rhythm with prolonged QT interval. She is on 3 medications that can prolong QT interval. Case reviewed with Dr. Mosqueda. She can proceed with surgery with a low to intermediate cardiac risk. Anesthesia should avoid any medications that prolong QT interval such as Enflurane, isoflurane. Call/consult Cardiology if needed. Plan Time spent on chart review, documentation, interview and assessment Orders: Orders Magnesium Today R94.31 - Abnormal electrocardiogram [ECG] [EKG] Add Laboratory Test Today R94.31 - Abnormal electrocardiogram [ECG] [EKG] Coding Level of Care Code Est Pt Level 3 (18050) Diagnoses Prolonged Q-T interval on ECG R94.31 Hx of cardiac catheterization Z98.890 Preop cardiovascular exam Z01.810 CPT Codes EKG - CPT: 75880-[id number], Complete ([id number]) Time Spent (min) 28
== END 2024-03-16 14:55 | disposition home or self-care (01) ==
PROVIDERS: PCP Internal Medicine; Visit Provider Nurse Practitioner Family
DX: R94.31 Abnormal electrocardiogram [ECG] [EKG] (principal); Z98.890 Other specified postprocedural states; Z01.810 Encounter for preprocedural cardiovascular examination
CPT/HCPCS: 93010; 99213

== ENCOUNTER 2024-03-17 10:58 | Outpatient (REF) | payer OTHER, SELFPAY ==
--- NOTE | ~2024-03-17 | XR_ITS ---
EXAMINATION: XR CHEST CLINICAL INFORMATION: Dyspnea. COMPARISON: Most recent CTA chest dated 08/17/2021. TECHNIQUE: PA and lateral views of the chest. FINDINGS: The lungs are clear. The cardiomediastinal silhouette is normal in size. There is no pleural effusion or pneumothorax. No acute osseous abnormality. XR/XR chest 2V IMPRESSION: No acute cardiopulmonary findings. Electronically signed by: Dario Baker MD 03/17/2024 01:10 PM EDT
--- NOTE | 2024-03-17 11:00 | PFT_ITS ---
Flows: FEV1: 108 % of predicted at 3.40 L FVC: 91 % of predicted at 3.42 L FEV1/FVC: 99 % Bronchodilator response: Absent Volumes: Total lung capacity: 110 % of predicted at 5.72 L Residual volume: 187 % of predicted at 2.28 L Slow vital capacity: 86 % of predicted at 3.44 L Expiratory reserve volume: 130 % of predicted at 1.67 L Diffusion capacity: Normal Impression: No obstructive or restrictive ventilatory defect. No bronchodilator response. Increased residual volume suggests air trapping. MTDD
== END 2024-03-17 10:59 | disposition home or self-care (01) ==
LOC: HO.RESP 10:58
PROVIDERS: PCP Internal Medicine; Visit Provider Nurse Practitioner Family
DX: Z01.811 Encounter for preprocedural respiratory examination (principal); R06.00 Dyspnea, unspecified
CPT/HCPCS: 71046; 94010; 94640; 94727; 94729

== ENCOUNTER → 2024-03-17 11:00 | Outpatient (BNV) | payer OTHER, SELFPAY | PROVIDERS: PCP Internal Medicine; Visit Provider Internal Medicine Pulmonary Disease | DX: R06.00 Dyspnea, unspecified (principal) | CPT/HCPCS: 94060; 94727; 94729 ==

== ENCOUNTER 2024-03-27 08:41 | Day surgery (SDC) | payer OTHER, SELFPAY ==
[2024-03-16 09:15] VITALS: BP 108/65; PULSE 97; RESP 16; O2SAT 99; BMI 21.8
--- NOTE | 2024-03-16 09:33 | HO.ANESPROP2 ---
Documented by User: Bernadette Max NP 03/25/24 14:24 HPI - Anesthesia Eval Consult details Narrative: 33yo F for Open Incarcerated Hernia Umbilical Reducible with mesh, 03/27/24 No recent illness No CP/SOB with minimal activity 12/2023 [facility] [place], [place] admit with OD, rhabdo Methadone daily, Recent OD Pulmo cleared PFT completed. Revealed no obstructive or restrictive ventilatory defect. No bronchodilator response. Increased residual volume suggests air trapping. DLCO normal. CXR unremarkable. Consider tox screen prior to surgery, as recent overdose noted in December. Given these findings, patient at low risk for pulmonary complications for proposed hernia repair. Cardiac cleared Preop for umbilical hernia repair general anesthesia. She has no CAD. Last echocardiogram 08/18/2021 showed normal EF, normal RV and PA pressures. EKG done today shows sinus rhythm with prolonged QT interval. She is on 3 medications that can prolong QT interval. Case reviewed with Dr. Mosqueda. She can proceed with surgery with a low to intermediate cardiac risk. Anesthesia should avoid any medications that prolong QT interval such as Enflurane, isoflurane. Call/consult Cardiology if needed. Lupus: plaquinel, Prednisone 5mg daily (has not been taking) s/p CT 2021 PMF Active Problems Active Problems: All Active Problems Incarcerated umbilical hernia (Acute) Preop cardiovascular exam (Acute) Incisional hernia (Acute) Myocarditis (Acute) Nausea and vomiting (Acute) Unstable angina (Acute) NSTEMI (non-ST elevated myocardial infarction) (Acute) Abnormal ECG (Acute) UTI (urinary tract infection) (Acute) Trichomonal infection (Acute) Dyspnea (Acute) Chest pain (Acute) Pneumonia (Acute) Hernia, umbilical (Acute) Lupus (Acute) Opiate dependence (Acute) Past Medical History Medical History Umbilical hernia Hx of drug overdose (01/10/24) IUD (intrauterine device) in place Anemia Constipation Hx of myocardial infarction Lupus Opiate dependence Lupus Family History Family History Sister SLE (systemic lupus erythematosus related syndrome) Family history of problems with anesthesia: No Surgical History Surgical History Hx of cardiac catheterization (~2021) Hx of cholecystectomy (~2019) History of Problems with Anesthesia: No Social History Social History Household Members: Unknown / Unable to assess Housing Other:: to drowsy to answer Are you a primary progressive care nurse to a significant other at home: No Do you presently have visiting nurse or other home services: No Alcohol intake: never Patient Tobacco Use Status: Tobacco use Unknown Tobacco use type: Smokeless Tobacco Cigarettes Per Day: 6 Smoked in Last 30 Days: No Use of substances other than those prescribed or required for medical reasons: Yes Substance Use Type: Crack/Cocaine and Opiates Substance Use Type Other:: last used 01/2024 Substance Use Frequency: Monthly Last Used Substance Other:: last used 12/2023 Have you been hit, kicked, punched, or otherwise hurt by someone within the past year? If so, by whom?: No Are you DNR?: No Advance Directives: No Advance Directives Information Provided: Yes Advance Directives on File: No Recently lost weight without trying: No Patient : No FDLMP: irregular Poor oral hygiene: No service: No Meds Allergies Allergy/AdvReac Type Severity Reaction Status Date / Time metoclopramide [From Reglan] Allergy Severe itching Verified 03/16/24 14:13 all over, shaking Home Medications ?Medication ?Instructions ?Recorded ?Confirmed ?Last Taken ?Type hydroxychloroquine 200 mg tablet 300 mg PO DAILY 04/20/22 03/16/24 Unknown History methadone 10 mg/mL oral 44 mg PO DAILY 01/08/24 03/16/24 01/06/24 08:08 History concentrate (Methadone Intensol) amitriptyline 10 mg tablet 10 mg PO BEDTIME 02/11/24 03/16/24 Unknown History prednisone 5 mg tablet 5 mg PO DAILY 02/11/24 03/16/24 03/14/24 History naloxone 4 mg/actuation nasal 1 spray intranasal Q2M PRN Opioid 03/12/24 03/16/24 Unknown History spray (Narcan) Overdose levonorgestrel 21 mcg/24 hr (up to mcg intrauterine 03/16/24 03/16/24 Unknown History 8 years) 52 mg intrauterine device (Mirena) Exam Height,Weight and Vital Signs: Height 5 ft 4 in Weight 57.6 kg Last Vital Signs Pulse 97 03/16/24 09:15 Resp 16 03/16/24 09:15 BP 108/65 03/16/24 09:15 Pulse Ox 99 03/16/24 09:15 O2 Del Method Room Air 03/16/24 09:15 Pertinent Lab Results Pertinent Lab Results: Lab Results 03/16/24 Range/Units 14:04 WBC 3.2 L (4.8-10.8) X10*3/uL RBC 3.76 L (4.20-5.50) X10*6/uL Hgb 10.7 L D (12.0-16.0) g/dl Hct 33.8 L D (37.0-47.0) % MCV 89.9 (80.0-98.0) fL MCH 28.5 (27.0-33.0) pg MCHC 31.7 (31.0-35.0) g/dl RDW 13.7 (11.0-16.0) % Plt Count 257 (160-400) X10*3/uL MPV 8.6 L (9.4-12.3) fL Absolute Nucleated RBC 0.000 (0.0-0.012) X10*3/uL Nucleated RBC % (auto) 0.0 (0.0-0.2) /100WBC Sodium 137 (135-145) mmol/L Potassium 4.4 (3.3-5.1) mmol/L Chloride 102 (96-108) mmol/L Carbon Dioxide 27 (22-29) mmol/L Anion Gap 12 (12-20) BUN 9 (9-16) mg/dL Creatinine 0.66 (0.5-1.4) mg/dL Estim Creat Clear Calc 103.7 Estimated GFR > 60 Random Glucose 82 (60-115) mg/dL Calcium 9.2 D (8.4-10.2) mg/dL Magnesium 2.0 (1.6-2.6) mg/dL Total Creatine Kinase 90 (26-140) U/L Narrative Narrative: EKG 02/2024 normal sinus rhythm, prolonged QTC, 498 milliseconds, rate 87, normal MS and QRS intervals Airway Mallampati Class: II TM Dist: >3cm Neck ROM: Full Heart: RRR Lungs: CTAB Assessment and Plan Assessment Anesthesia Assessment: Anesthesia Plan Discussed, Smoking Cess. Discussed (Vapes marijuana) and PAT Visit Final Anesthetic Review Family History of Problems with Anesthesia: No History of Problems with Anesthesia: No Documented by User: Shannan Santana MD 03/27/24 09:02 [facility] Active Problems Active Problems: All Active Problems Incarcerated umbilical hernia (Acute) Preop cardiovascular exam (Acute) Incisional hernia (Acute) Myocarditis (Acute) Nausea and vomiting (Acute) Unstable angina (Acute) NSTEMI (non-ST elevated myocardial infarction) (Acute) Abnormal ECG (Acute) UTI (urinary tract infection) (Acute) Trichomonal infection (Acute) Dyspnea (Acute) Chest pain (Acute) Pneumonia (Acute) Hernia, umbilical (Acute) Lupus (Acute) Opiate dependence (Acute). On methadone. Took today No recent chest pain Past Medical History Medical History Umbilical hernia Hx of drug overdose (01/10/24) IUD (intrauterine device) in place Anemia Constipation Hx of myocardial infarction Lupus Opiate dependence Lupus Family History Family History Sister SLE (systemic lupus erythematosus related syndrome) Family history of problems with anesthesia: No Surgical History Surgical History Hx of cardiac catheterization (~2021) Hx of cholecystectomy (~2019) History of Problems with Anesthesia: No Social History Social History Household Members: Unknown / Unable to assess Housing Other:: to drowsy to answer Are you a primary progressive care nurse to a significant other at home: No Do you presently have visiting nurse or other home services: No Alcohol intake: never Patient Tobacco Use Status: Tobacco use Unknown Tobacco use type: Smokeless Tobacco Cigarettes Per Day: 6 Smoked in Last 30 Days: No Use of substances other than those prescribed or required for medical reasons: Yes Substance Use Type: Crack/Cocaine and Opiates Substance Use Type Other:: last used 01/2024 Substance Use Frequency: Monthly Last Used Substance Other:: last used 12/2023 Have you been hit, kicked, punched, or otherwise hurt by someone within the past year? If so, by whom?: No Are you DNR?: No Advance Directives: No Advance Directives Information Provided: Yes Advance Directives on File: No Recently lost weight without trying: No Patient : No FDLMP: irregular Poor oral hygiene: No service: No Meds Allergies Allergy/AdvReac Type Severity Reaction Status Date / Time metoclopramide [From Reglan] Allergy Severe itching Verified 03/16/24 14:13 all over, shaking Home Medications ?Medication ?Instructions ?Recorded ?Confirmed ?Last Taken ?Type hydroxychloroquine 200 mg tablet 300 mg PO DAILY 04/20/22 03/16/24 Unknown History methadone 10 mg/mL oral 44 mg PO DAILY 01/08/24 03/16/24 01/06/24 08:08 History concentrate (Methadone Intensol) amitriptyline 10 mg tablet 10 mg PO BEDTIME 02/11/24 03/16/24 Unknown History prednisone 5 mg tablet 5 mg PO DAILY 02/11/24 03/16/24 03/14/24 History naloxone 4 mg/actuation nasal 1 spray intranasal Q2M PRN Opioid 03/12/24 03/16/24 Unknown History spray (Narcan) Overdose levonorgestrel 21 mcg/24 hr (up to mcg intrauterine 03/16/24 03/16/24 Unknown History 8 years) 52 mg intrauterine device (Mirena) Exam Height,Weight and Vital Signs: Height 5 ft 4 in Weight 57.6 kg Last Vital Signs Pulse 97 03/16/24 09:15 Resp 16 03/16/24 09:15 BP 108/65 03/16/24 09:15 Pulse Ox 99 03/16/24 09:15 O2 Del Method Room Air 03/16/24 09:15 Vital Signs Temp Pulse Resp BP Pulse Ox O2 Del Method 03/27/24 08:48 98.8 F 103 H 18 110/68 99 Room Air Pertinent Lab Results Pertinent Lab Results: Lab Results 03/16/24 Range/Units 14:04 WBC 3.2 L (4.8-10.8) X10*3/uL RBC 3.76 L (4.20-5.50) X10*6/uL Hgb 10.7 L D (12.0-16.0) g/dl Hct 33.8 L D (37.0-47.0) % MCV 89.9 (80.0-98.0) fL MCH 28.5 (27.0-33.0) pg MCHC 31.7 (31.0-35.0) g/dl RDW 13.7 (11.0-16.0) % Plt Count 257 (160-400) X10*3/uL MPV 8.6 L (9.4-12.3) fL Absolute Nucleated RBC 0.000 (0.0-0.012) X10*3/uL Nucleated RBC % (auto) 0.0 (0.0-0.2) /100WBC Sodium 137 (135-145) mmol/L Potassium 4.4 (3.3-5.1) mmol/L Chloride 102 (96-108) mmol/L Carbon Dioxide 27 (22-29) mmol/L Anion Gap 12 (12-20) BUN 9 (9-16) mg/dL Creatinine 0.66 (0.5-1.4) mg/dL Estim Creat Clear Calc 103.7 Estimated GFR > 60 Random Glucose 82 (60-115) mg/dL Calcium 9.2 D (8.4-10.2) mg/dL Magnesium 2.0 (1.6-2.6) mg/dL Total Creatine Kinase 90 (26-140) U/L Laboratory Results - last 24 hr 03/27/24 07:30 Urine Test NEGATIVE Urine Opiates Screen Not Detected Ur Buprenorphine Scrn Not Detected Ur Oxycodone Screen Not Detected Urine Methadone Screen Positive H Urine Fentanyl Screen Not Detected Ur Barbiturates Screen Not Detected Ur Phencyclidine Scrn Not Detected Ur Amphetamines Screen Not Detected U Benzodiazepines Scrn Not Detected Urine Cocaine Screen Not Detected U Marijuana (THC) Screen Not Detected Airway Mallampati Class: II TM Dist: >3cm Neck ROM: Full Loose/Missing/Broken Teeth: Yes (Broken tooth top left back) Assessment and Plan Assessment Anesthesia Assessment: Anesthesia Plan Discussed and Chart Reviewed Final Anesthetic Review Family History of Problems with Anesthesia: No History of Problems with Anesthesia: No NPO: Yes ASA Class: III Final Preanesthetic Review: No Changes in Pt Med Stat, Meds/Allgs Chart Reviewed, Consent Obtained/Reviewed and Anes Risks/Benef Reviewed Patient Risk: Intermediate Procedure Risk: Low Assessment/Block/Sedation in SS: Assess/Block/Sedation-SS Anesthetic Plan Anesthetic Plan: GA Disposition: Standard PACU
[2024-03-16 14:47] LABS: Hematocrit 33.8 % (37.0-47.0); Hemoglobin 10.7 g/dl (12.0-16.0); Mean Corpuscular HGB Conc 31.7 g/dl (31.0-35.0); Mean Corpuscular Hemoglobin 28.5 pg (27.0-33.0); Mean Corpuscular Volume 89.9 fL (80.0-98.0); Mean Platelet Volume 8.6 fL (9.4-12.3); Platelet Count 257 X10*3/uL (160-400); Red Blood Count 3.76 X10*6/uL (4.20-5.50); Red Cell Distribution Width 13.7 % (11.0-16.0); White Blood Count 3.2 X10*3/uL (4.8-10.8)
[2024-03-16 15:15] LABS: Anion Gap 12 (12-20); Blood Urea Nitrogen 9 mg/dL (9-16); Calcium 9.2 mg/dL (8.4-10.2); Carbon Dioxide 27 mmol/L (22-29); Chloride 102 mmol/L (96-108); Creatinine Clr Calc Pharmacy 103.7; Estimated Glomerular Filt Rate > 60; Glucose Random 82 mg/dL (60-115); Potassium 4.4 mmol/L (3.3-5.1); Sodium 137 mmol/L (135-145)
--- NOTE | 2024-03-26 12:09 | MHC.SHP ---
Pre-Procedural Eval Section A - 24 Hr Update-Section A only Date of Service: 03/27/24 The patient is an INPATIENT: No Changes since office visit: No Cold of Flu in the past 2 weeks, No New Medical Problems, No Changes in Medication and No Patient answered all questions Section B - Complete if H&P > 30 days Chief Complaint: Umbilical hernia with obstruction, without gangren Allergies: Allergies Allergy/AdvReac Type Severity Reaction Status Date / Time metoclopramide [From Reglan] Allergy Severe itching Verified 03/16/24 14:13 all over, shaking Review of Systems Sugical H&P ROS: Negative: Constitution, Cardiovascular, Respiratory, Neurological, Psychiatric, Hem-Onc, Allergic/Immunologic, Gastrointestinal, Genitourinary, Musculoskeletal, Integumentary, Endocrine and Eyes/Ears/Nose/Throat Exam Surgical H&P Exam: Normal: HEENT, Normal: Heart, Normal: Lungs, Normal: Extremities, Normal: Abdomen, Normal: Skin and Normal: Neurological Plan I have reviewed the history and physical and performed a pertinent physical examination on my patient. No changes have occurred unless specified. Time Spent With Patient Time: Total time managing care of this patient today ____ minutes.
[2024-03-27] VITALS (13 sets, daily range): BP systolic 110–138; BP diastolic 68–94; PULSE 79–103; RESP 18–22; TEMP 36.3–37.1; O2SAT 99–100
[2024-03-27 07:56] LABS: Amphetamine Screen Urine Not Detected (Not Detect); Barbiturates, Urine Not Detected (Not Detect); Benzodiazepines Screen Urine Not Detected (Not Detect); Buprenorphine Scr Not Detected (Not Detect); Cannabinoid Screen Urine Not Detected (Not Detect); Cocaine Screen Urine Not Detected (Not Detect); Fentanyl, urine Not Detected (Not Detect); Methadone Screen, Urine Positive (Not Detect); Opiate Screen Urine Not Detected (Not Detect); Oxycodone Screen Urine Not Detected (Not Detect); Phencyclidine Screen Urine Not Detected (Not Detect)
[2024-03-27] MEDS: Lactated Ringers 1,000 ML 100 ML IVCONT (08:38)
[2024-03-27 08:39] LABS: UPreg QC Valid YES; Urine Pregnancy NEGATIVE (NEGATIVE)
--- OUTSIDE RECORDS SUMMARY | 2024-03-27 08:42 | XMS_ITS | Continuity of Care Document ---
Author Organization [facility] Address [address] [place] [address]- Care Team Providers Care Peat Shredder Tender Name Role Phone Nasim ROME MD, Alfonzo Tapia Primary Care Physician Encounter [facility] Date(s): 02/14/24 - 02/14/[address] [address]- Encounter Diagnosis Ventral hernia(Final) - 02/14/24 Discharge Disposition: A-D/C Home Attending Physician: Kraig Agrawal MD Admitting Physician: Kraig Agrawal MD Referring Physician: Not on Staff, Referring MD Allergies, Adverse Reactions, Alerts No Known Allergies Immunizations Given and Recorded Vaccine Date Status Refusal Reason Human Papillomavirus Vaccine 1 08/23/11 Given Human Papillomavirus Vaccine 06/01/11 Given Human Papillomavirus Vaccine 2 02/01/11 Given tetanus/diphtheria/pertussis, acel(Tdap) 07/25/10 Given Influenza Inactive (IM) (oldterm) 3 05/25/10 Given 1Admin Note: Given by Estuardo Loagn CNM. 2Admin Note: 10/25/09 VIS Given. 3Admin Note: 03/07/10 VIS Given. Medications amitriptyline 100 mg oral tablet TAKE 1 TABLET BY MOUTH AT BEDTIME Start Date: 12/24/17 Status: Ordered azaTHIOprine 50 mg oral tablet TAKE 1/2 TAB BY MOUTH DAILY. Start Date: 12/24/17 Status: Ordered hydroxychloroquine 200 mg oral tablet TAKE 1 TABLET BY MOUTH TWICE A DAY Start Date: 12/24/17 Status: Ordered ondansetron 4 mg oral tablet, disintegrating 1 tablet = 4 mg, By Mouth, Every 8 hours, PRN Nausea & Vomiting, # 10 tablet, 0 Refills, Maintenance, 02/14/24 17:49:00 EDT, Tablet, [id number], Partial fill upon patient request if the prescription is for a schedule II opioid drug., 163, cm,... Start Date: 02/14/24 Status: Ordered predniSONE 5 mg oral tablet [...] neg; bx = RAGHU II. referred to [facility] for treatment options. 3colpo, pap, ecc, bx x 2 4called pt, colpo area counselor, accepted appt 09/24/13 3pm. 5no show colpo; pt called, letter sent. pap LGSIL, needs colpo pap negative 8Normal colpo today 9index pap ascus +hpv 10LEEP done 12/17/13 111/4 PPD x 8 ys. Results Radiology Reports * Exam Date Time Procedure Performing Provider Status 02/14/24 4:[address] Abd/Pelvis W/ IV + Oral Contrast Sabine Doe; Gayatri (Verified) Notes: (CT Abd/Pelvis W/ IV + Oral Contrast) Reason For Exam: RLQ abdominal pain;Other: RESULT: CT Abd/Pelvis W/ IV + Oral Contrast CT Abd/Pelvis W/ IV + Oral Contrast Hx of Present Illness: RLQ abdominal pain; Clinical Question(s): hernia, e o strangulation encarceration TECHNIQUE: Spiral CT through the abdomen and pelvis with IV contrast formatted in 3 planes. 120 cc of Omnipaque 300 was administered intravenously. This study was performed with oral contrast. Weight-based protocol using automatic tube modulation was used to optimize exposure parameters. CTDIvol Body: 10.29 mGy, DLP Body: 467 mGy*cm. COMPARISON: CT angiography 12/06/2017. MRI abdomen 11/04/2014 FINDINGS: Diving Coach View Findings, Lines and Tubes: None. Visualized Chest: Lung bases are clear. No pleural effusion. The heart is normal in size. No pericardial effusion. Diaphragm: Normal. Liver: Normal. Gallbladder: Absent consistent with prior cholecystectomy. Bile ducts: No intrahepatic bile duct dilation. The common bile duct is mildly dilated measuring upto 8 mm, likely due to reservoir effect from cholecystectomy. Spleen: Normal. Pancreas: The proximal main pancreatic duct in the head and proximal body is mildly dilated measuring up to 5 mm. There is smooth distal tapering of the main pancreatic duct distally in the tail. Adrenal glands: Normal. Kidneys and ureters: No hydronephrosis, stones, or suspicious masses. Simple appearing renal cysts and hypodensities that are too small to characterize are noted, requiring no dedicated follow up. Bladder: Normal. Reproductive organs: IUD within the uterus. Stomach, small bowel, and large bowel: Oral contrast opacifies the jejunum and proximal ileum. The large bowel is diffusely dilated in the ascending colon, transverse colon, and descending colon withmoderate stool burden. Gradual transition to normal caliber sigmoid colon and rectum. Large bowel loops measure up to approximately 7 cm. There is a small portion of the mid transverse colon contained within a ventral hernia. There is no bowel wall pneumatosis. No change in bowel caliber of the colon at the site of Ramirez's hernia. No wall thickening of the portion of the transverse colon herniated, although there is abnormal stranding of the herniated omental fat. Appendix: Normal seen. No evidence of acute appendicitis. Peritoneum and retroperitoneum: No ascites or pneumoperitoneum. No omental or mesenteric lesions. Lymph nodes: No enlarged lymph nodes. Blood vessels: Normal. No aneurysm. No evidence of venous thrombosis. Abdominal and pelvic wall: Ventral abdominal wall hernia containing herniation of omental fat and aportion of the transverse colon. The herniated fat demonstrates abnormal fat stranding. The hernia neck measures 2.0 cm. Bones: No acute abnormality. IMPRESSION: Ramirez's type ventral hernia containing fat and a small portion of the transverse colon without evidence of obstruction. There is abnormal fat stranding of the herniated fat, which can be seen with strangulation. The impression above was relayed to Kraig Agrawal MD by Dr. Nereida Owusu via [employer] awaiting response on 02/14/2024 at 5:04 PM. I have personally reviewed the images and I agree with this report. WSN: [id number] Ordering Physician: Kraig Agrawal Dictated By: Nereida Owusu MD Dictated Date/Time: 02/14/24 5:26 pm Reviewed By: Naomi Moore MD Signed By: Naomi Moore MD Signed Date/Time: 02/14/24 5:31 pm Transcribed By: KELLY Transcribed Date/Time: 02/14/24 5:15 pm Vital Signs Most recent to oldest [Reference Range]: 1 2 3 Height 163 cm (02/14/24 6:12 PM) 163 cm (02/14/24 4:24 PM) 163 cm (02/14/24 12:57 PM) Weight 51.9 kg (02/14/24 12:57 PM) Oxygen Saturation [94-100 %] 100 % (02/14/24 6:12 PM) 100 % (02/14/24 4:24 PM) 99 % (02/14/24 12:57 PM) Pulse Rate [55-90 bpm] 96 bpm *H* (02/14/24 6:12 PM) 85 bpm (02/14/24 4:24 PM) 125 bpm *H* (02/14/24 12:57 PM) Blood Pressure [90-138/55-84 mm Hg] 103/69mm Hg (02/14/24 6:12 PM) 103/71mm Hg (02/14/24 4:24 PM) 122/79mm Hg (02/14/24 12:57 PM) Respiratory Rate [16-30 br/min] 18 br/min (02/14/24 6:12 PM) 18 br/min (02/14/24 4:24 PM) 18 br/min (02/14/24 12:57 PM) Temperature [96.8-100.4 DegF] 98.6 DegF (02/14/24 6:12 PM) 97.0 DegF (02/14/24 4:24 PM) 97.2 DegF (02/14/24 12:57 PM) Mode of Delivery (Oxygen) Room air (02/14/24 6:12 PM) Room air (02/14/24 4:24 PM) Blood pressure sites Arm, left (02/14/24 6:12 PM) Arm, left (02/14/24 4:24 PM) Temperature Route Oral (02/14/24 6:12 PM) Oral (02/14/24 4:24 PM) Dry Weight 51.9 kg (02/14/24 12:57 PM) Weight Obtained Via Standing scale (02/14/24 12:57 PM) Dry Weight Obtained Via Standing scale (02/14/24 12:57 PM) Social History Social History Type Response Smoking Status Former smoker; Other : quit august 2014; entered on: 11/23/14 Sex Note * Nghia SALMERON, Kraig Mcgarry: PERFORM Event Display: Patient Education Leaflets Authored Date: [id number] Hernia (Adult) ?? [id number] Hernia (Adult) A hernia can happen when there is a weakness or defect in the wall of the abdomen or groin.??Intestines or nearby tissues may move from their usual location and push through the weakness in the wall.This can cause a bulge (hernia) you may see or feel. Causes and risk factors?? A hernia may be present at . Or it may be caused by the wear and tear of daily living. Certainthings can make a hernia more likely. These can include: ??? Heavy lifting ??? Straining, whether from lifting, movement, or constipation ??? Chronic cough ??? Injury to the abdominal wall ??? Excessweight ? Past surgery ??? Older age ??? Family history of hernia ?? Symptoms Symptoms of a hernia may come on suddenly. Or they may appear slowly over time. Some common symptoms include: ??? Bulge in the groin area, around the navel, or in the scrotum. The bulge may get bigger when you stand and go away when you lie down. ??? Pain or pressure around the bulge ??? Pain during activities such as lifting, coughing, or sneezing ??? A feeling of weakness or pressure in the groi n ??? Pain or swelling in the scrotum ?? Types of hernias There are different types of hernia. The type you have depends on where it is: ??? Inguinal. This type is in the groin or scrotum. It's more common in men. But women can also getthis hernia. ??? Femoral. This type is in the groin, upper thigh, or labia. It's more common in women. ??? Ventral. This type is in the abdominal wall. ??? Umbilical. This type occurs around the bellybutton (navel). ??? Incisional. This type occurs at the site of a past surgery. The condition of the hernia can help determine how quickly it needs to be treated. ??? Reducible. It goes back in by itself, or it can be pushed back in. ??? Irreducible. It can???t be pushed back in. ??? Incarcerated or strangulated. The intestine is trapped (incarcerated). If this happens, you won???t be able to push the bulge back in. If the incarcerated hernia isn???t treated, it may become strangulated. This means the area loses blood supply and the tissue may .?? This requires emergency surgery. You need treatment right away. In most cases, a hernia will not heal on its own. You may need surgery to repair the defect in the abdominal wall or groin. You???ll be told more about surgery, if needed. If your symptoms are not severe, treatment may sometimes be delayed. In such cases, you will need regular follow-up visits with the provider. You???ll be asked to keep track of your symptoms and to watch for signs of more serious problems. You may also be given guidelines similar to the home care instructions below. ?? Home care To help keep a hernia from getting worse, you may be advised to: ??? Not do any heavy lifting or straining as directed. ??? Take steps to prevent constipation. This includes eating more fiber and drinking more water. This may help reduce straining that can occur when having a bowel movement. Reducing straining may help keep your symptoms from getting worse. ??? Stay at a healthy weight or lose extra weight. This can help reduce strain on abdominal muscles and tissues. ??? Stop smoking. This canhelp prevent coughing that may also strain abdominal muscles and tissues. ?? Follow-up care Follow up with your healthcare provider, or as directed.??If you had imaging tests, they will be reviewed a doctor. You will be told the results and any new findings that may affect your care. ?? When to seek medical advice Call your healthcare provider right away if any of these occur: ??? Hernia hardens, swells, or grows larger ??? Hernia can no longer be pushed back in ??? Pain moves to the lower right abdomen (just below the waistline), or spreads to the back ??? You have new symptoms ?? Call 911 Call 911??if any of these occur: ??? Severe pain, redness, or tenderness in the area near the hernia ??? Pain gets worse quickly and doesn???t get better ??? Inability to have a bowel movement or pass gas ??? Fever of 100.4??F (38??C) or higher, or as directed by your healthcare provider ?? Last Reviewed Date: 2021 ?? [id number] [employer]. All rights reserved. This information is not intended as a substitute for professional medical care. Always follow your healthcare professional's instructions. ?? Patient Care team information Care Team Personnel Name: Nasim ROME MD, Alfonzo Tapia Position: Reference Physician Member Role: PCP Address: Address: [address] [place] [id number] Name: Rachele Lynne RN Position: Karoline RN Member Role: Primary Care Nurse Care Team Related Persons Name: DONTA GILMANRICK Address: home [address] [place] [address] Name: GABY RAJPUT Address: home [address] [place] [address] Name: CHENTE FALLON Address: home [address] [place] [address]
--- NOTE | 2024-03-27 09:54 | W.PM.OPN ---
Operative Note Operative Note Date of Service: 03/27/24 Narrative: Preoperative diagnosis: [] Incarcerated recurrent umbilical hernia Postop diagnosis: [] The same Procedure [] open repair of incarcerated umbilical hernia with Bard mesh Surgeon: [] Jose Juan Software Project Lead: [] Ivory Type of Anesthesia: [] General Indication for surgery: [] Roughly 4 cm incarcerated umbilical hernia with omental contents Findings: [] Patient brought to the operating room, placed on operative table in supine position, after an adequate level of general anesthesia was induced, the patient's abdomen which was moderately corpulent was prepped and draped in usual sterile fashion using a supraumbilical curvilinear incision, this carried down through skin, subcutaneous tissue, where hernia sac was identified I would and dissected off the posterior aspect of the umbilicus and dissected down the fascia. Sac was circumferentially opened using Bovie sac and incarcerated omental contents were amputated using clamps, cutting, and time with 2-0 Vicryl ties. Fascia margins were circumferentially cleared and appropriate sized Bard mesh was placed in this defect. Superficial layer of the mesh was circumferentially sutured to the surrounding fascia using interrupted 0 Ethibond suture. At completion, mesh was in good position with no tension or gaps. Wound was irrigated, secured hemostasis. Was closed in the following manner; posterior aspect of the umbilicus was tacked to the wound floor using interrupted 3-0 Vicryl sutures. Skin wounds closed using interrupted inverted dermal 3-0 Vicryl sutures followed by Steri-Strips and sterile dressings. Wound was infiltrated 0.5% Marcaine at completion. Sponge, needle, and instrument counts were reported correct. Patient tolerated the procedure well and emerged from anesthesia stable condition. EBL minimal
[2024-03-27] MEDS: fentaNYL citrate/PF 100 MCG/2 ML VIAL 25 MCG IVPUSH ×4 (10:36→11:11)
== END 2024-03-27 11:49 | disposition home or self-care (01) ==
PROVIDERS: Anesthesiology; Nurse Practitioner; Nurse Practitioner Family; PCP Internal Medicine; Visit Provider Surgery
PROC: (CPT 49594; principal; 2024-03-27 08:40)
DX: K42.0 Umbilical hernia with obstruction, without gangrene (principal); R94.31 Abnormal electrocardiogram [ECG] [EKG]; M32.9 Systemic lupus erythematosus, unspecified; K59.00 Constipation, unspecified; Z79.52 Long term (current) use of systemic steroids; Z79.899 Other long term (current) drug therapy; F11.20 Opioid dependence, uncomplicated; Z90.49 Acquired absence of other specified parts of digestive tract
CPT/HCPCS: 49594; 36415; 80048; 80307; 81025; 82550; 83735; 85027; 88302; C1781; J0690; J1100; J2250; J2405; J2704; J2795; J3010

== ENCOUNTER → 2024-03-27 08:41 | Outpatient (BNV) | payer OTHER, SELFPAY | PROVIDERS: PCP Internal Medicine; Visit Provider Surgery | DX: K42.0 Umbilical hernia with obstruction, without gangrene (principal) | CPT/HCPCS: 49594 ==

== ENCOUNTER 2024-04-07 10:57 | Outpatient (AMB) | payer OTHER, SELFPAY ==
--- NOTE | 2024-04-07 10:59 | MHC.OFFVIS ---
Vital Signs 04/07/24 11:02 Height 5 ft 4 in Weight 126 lb BMI 21.6 BP 104/62 Blood Pressure Location Lt brachial Position Sitting Pulse 99 Intake Visit Reasons: S/P umbilical hernia w/mesh Intake Note: Patient follow up S/P Umbilical hernia w/mesh Patient cc: constipation after the surgery is worst. Electronic Technician Required: No Accompanied by: Family/Other Allergies metoclopramide [From Reglan] Allergy (Severe, Verified 04/07/24 10:59) itching all over, shaking HPI Comments Details: Patient presents for follow-up with her significant other. She is doing well. She is tolerating a diet. She is having bowel habits essentially back to her baseline which is moderate constipation on occasion. She has taken stool softeners which he has done for years. Minimal incisional discomfort. Patient was increasing her activity level. [facility] Medical History (Updated 04/07/24 @ 13:28 by John Manzano MD) Umbilical hernia Hx of drug overdose (01/10/24) IUD (intrauterine device) in place Anemia Constipation Hx of myocardial infarction Lupus Opiate dependence Lupus Surgical History Incarcerated umbilical hernia (03/27/24) Hx of cardiac catheterization (~2021) Hx of cholecystectomy (~2019) Family History Sister SLE (systemic lupus erythematosus related syndrome) Social History Household Members: Unknown / Unable to assess Housing Other:: to drowsy to answer Are you a primary health care sanitary technician to a significant other at home: No Do you presently have visiting nurse or other home services: No Alcohol intake: never Patient Tobacco Use Status: Former Tobacco user Tobacco use type: Smokeless Tobacco Cigarettes Per Day: 6 Substance Use Type: Crack/Cocaine and Opiates service: No Physical Exam Vital Signs: Last Vital Signs Pulse 99 04/07/24 11:02 BP 104/62 04/07/24 11:02 BMI result Body Mass Index 21.6 GI Other: Abdomen is soft. Wound clean dry and intact healing uneventfully Assessment & Plan Assessment & Plan (1) Postop check: Code(s): Z09 - Encounter for follow-up examination after completed treatment for conditions other than malignant neoplasm Category: Medical (2) Status post umbilical hernia repair, follow-up exam: Code(s): Z09 - Encounter for follow-up examination after completed treatment for conditions other than malignant neoplasm Category: Medical Plan Patient has been given local instructions, and should avoid strenuous activities next few weeks time, will otherwise follow-up p.r.n.. All questions answered. Coding Level of Care Code Global (75185) Diagnoses Postop check Z09 Status post umbilical hernia repair, follow-up exam Z09
[2024-04-07 11:02] VITALS: BP 104/62; PULSE 99; BMI 21.6
== END 2024-04-07 11:08 | disposition home or self-care (01) ==
PROVIDERS: PCP Internal Medicine; Visit Provider Surgery
DX: Z09 Encounter for follow-up examination after completed treatment for conditions other than malignant neoplasm (principal)
CPT/HCPCS: 99212

== ENCOUNTER → 2024-04-07 10:57 | Outpatient (BNVA) | payer OTHER, SELFPAY | PROVIDERS: PCP Internal Medicine; Visit Provider Surgery | DX: Z09 Encounter for follow-up examination after completed treatment for conditions other than malignant neoplasm (principal); Z87.19 Personal history of other diseases of the digestive system; Z98.890 Other specified postprocedural states | CPT/HCPCS: 99212 ==

== ENCOUNTER 2024-10-25 21:38 | Emergency (ER) | payer OTHER, SELFPAY ==
--- NOTE | 2024-10-25 | ECG_ITS ---
Test Reason : DIZZNESS Blood Pressure : */* mmHG Vent. Rate : 127 BPM Atrial Rate : 127 BPM P-R Int : 132 ms QRS Dur : 90 ms QT Int : 326 ms P-R-T Axes : 74 62 47 degrees QTcB Int : 473 ms Sinus tachycardia Nonspecific ST and T wave abnormality Abnormal ECG When compared with ECG of 09-Jan-2024 14:47, No significant change was found Referred By: Generic ED Physician Electronically Signed By: MICHELLE MONTGOMERY
[2024-10-25 21:43] VITALS: BP 138/98; PULSE 130; O2SAT 98
[2024-10-25 21:44] VITALS: BP 124/74; PULSE 126; RESP 14; TEMP 37.2; O2SAT 100; BMI 25.2
[2024-10-25 22:03] LABS: MANUAL DIFF FLAG NO
[2024-10-25 22:04] LABS: Basophils Percent Auto 0.2 % (0-2); Eosinophils Percent Auto 0.2 % (0-4); Hematocrit 33.5 % (37.0-47.0); Hemoglobin 11.7 g/dl (12.0-16.0); Imm Gran Abs Auto 0.01 X10*3/uL (0.00-0.03); Imm Gran Pct Auto 0.2 % (0.0-0.4); Lymphocytes Absolute Auto 1.1 X10*3/uL (1.2-4.9); Lymphocytes Percent Auto 23.8 % (20-40); Mean Corpuscular HGB Conc 34.9 g/dl (31.0-35.0); Mean Corpuscular Hemoglobin 29.4 pg (27.0-33.0); Mean Corpuscular Volume 84.2 fL (80.0-98.0); Mean Platelet Volume 8.4 fL (9.4-12.3); Monocytes Absolute Auto 0.4 X10*3/uL (0.1-1.2); Monocytes Percent Auto 7.8 % (2-11); Neutrophils Absolute Auto 3.1 x10*3/uL (2.0-8.3); Neutrophils Percent Auto 67.8 % (45-73); Platelet Count 257 X10*3/uL (160-400); Red Blood Count 3.98 X10*6/uL (4.20-5.50); Red Cell Distribution Width 12.8 % (11.0-16.0); White Blood Count 4.6 X10*3/uL (4.8-10.8)
[2024-10-25 22:17] LABS: Alanine Aminotransferase 17 U/L (0-31); Albumin Level 3.9 g/dL (3.5-5.0); Alkaline Phosphatase 71 U/L (39-117); Anion Gap 12 (12-20); Aspartate Amino Transferase 27 U/L (5-31); Bilirubin Total 0.2 mg/dL (0.0-1.0); Blood Urea Nitrogen 6 mg/dL (9-16); Calcium 8.8 mg/dL (8.4-10.2); Carbon Dioxide 23 mmol/L (22-29); Chloride 109 mmol/L (96-108); Creatinine Clr Calc Pharmacy 116.9; Estimated Glomerular Filt Rate > 60; Glucose Random 89 mg/dL (60-115); Sodium 141 mmol/L (135-145); Total Protein 8.2 g/dL (6.5-8.0)
[2024-10-26 00:24] VITALS: BP 119/71; PULSE 112; RESP 16; TEMP 36.7; O2SAT 99
[2024-10-26 00:25] VITALS: BP 119/71; PULSE 112; RESP 16; TEMP 36.7; O2SAT 99
--- NOTE | 2024-12-22 12:17 | ED_ITS ---
HPI - Fall General Chief Complaint: Fall Stated Complaint: syncopal episode, fall & head strike Time Seen by Provider: 10/25/24 23:57 Source: patient Mode of arrival: EMS Limitations: no limitations History of Present Illness ED Provider: Dr. Apolinar Johnson HPI Narrative: 34-year-old female with history of seizures anemia, lupus, opiate dependence, myocardial infarction, history of drug overdose who presents emergency department for evaluation syncopal episode that occurred at home. The patient states that she is taking trazodone and hydroxyzine for sleep. Patient states she took her medications and smokes marijuana. She then vomited, walked out of her kitchen and then found herself lying on the kitchen floor. She did hit her head. She does not know how long she was unconscious for. She is not on blood thinners. She is complaining of diffuse, throbbing headache which is 5/10 at its worse. She is also complaining neck pain. Related Data Home Medications ?Medication ?Instructions ?Recorded ?Confirmed hydroxychloroquine 200 mg tablet 300 mg PO DAILY 04/20/22 04/07/24 methadone 10 mg/mL oral 44 mg PO DAILY 01/08/24 04/07/24 concentrate (Methadone Intensol) amitriptyline 10 mg tablet 10 mg PO BEDTIME 02/11/24 04/07/24 prednisone 5 mg tablet 5 mg PO DAILY 02/11/24 04/07/24 naloxone 4 mg/actuation nasal 1 spray intranasal Q2M PRN Opioid 03/12/24 04/07/24 spray (Narcan) Overdose levonorgestrel 21 mcg/24 hr (up to mcg intrauterine 03/16/24 04/07/24 8 years) 52 mg intrauterine device (Mirena) Previous Rx's ?Medication ?Instructions ?Recorded ibuprofen 800 mg tablet 800 mg PO Q8H PRN pain #30 tabs 03/27/24 potassium chloride 20 mEq 20 meq PO BID 7 days #14 tabs 10/26/24 tablet,extended release(part/cryst) Allergies Allergy/AdvReac Type Severity Reaction Status Date / Time metoclopramide [From Reglan] Allergy Severe itching Verified 10/25/24 21:47 all over, shaking Review of Systems 2 Review of Systems: Yes all other systems are reviewed and are negative PMFSH Past Medical History Medical History (Updated 12/22/24 @ 12:37 by Apolinar Johnson MD) Umbilical hernia Hx of drug overdose (01/10/24) IUD (intrauterine device) in place Anemia Constipation Hx of myocardial infarction Lupus Opiate dependence Lupus Surgical History Incarcerated umbilical hernia (03/27/24) Hx of cardiac catheterization (~2021) Hx of cholecystectomy (~2019) Family History Family History Sister SLE (systemic lupus erythematosus related syndrome) Social History Social History Household Members: Unknown / Unable to assess Housing Other:: to drowsy to answer Are you a primary child care teacher to a significant other at home: No Do you presently have visiting nurse or other home services: No Alcohol intake: never Patient Tobacco Use Status: Former Tobacco user Tobacco use type: Smokeless Tobacco Cigarettes Per Day: 6 Smoked in Last 30 Days: Yes Use of substances other than those prescribed or required for medical reasons: Yes Substance Use Type: Marijuana Advance Directives: No Advance Directives Information Provided: Yes Patient : No service: No Physical Exam 2 Vital Signs: Vital Signs: Last Vital Signs Temp 98.1 F 10/26/24 00:25 Pulse 112 H 10/26/24 00:25 Resp 16 10/26/24 00:25 BP 119/71 10/26/24 00:25 Pulse Ox 99 10/26/24 00:25 O2 Del Method Room Air 10/26/24 00:25 BMI result Body Mass Index 25.2 Vital signs revealed an elevated heart rate otherwise unremarkable Exam: General: Awake, alert in no distress Head: Normocephalic, atraumatic, no palpable scalp tenderness , no hematomas EENT: PERRL, Lids normal, sclera normal, conjunctiva normal, nose normal , ears normal, throat without erythema or exudates Neck: Supple, no adenopath, no C-spine tenderness, no tenderness palpation of the trapezius or sternocleidomastoid muscles bilaterally. Lung: breath sounds symmetric, no wheezing, rales or rhonchi Chest: symmetric movement, nontender Heart: regular rate and rhythm, normal S1, S2 no murmurs or rubs Abdomen: soft, non-tender, nondistended, normal bowel sounds Back: no vertebral tenderness, no CVAT Extremities: no deformities, moves all extremities symmetrically Neuro: Awake, alert, oriented, normal speech, cranial nerves intact, moves all extremities symmetrically Psych: Pleasant, cooperative Medical Decision Making Medical Decision Making MDM Narrative: 34-year-old female with history of seizures anemia, lupus, opiate dependence, myocardial infarction, history of drug overdose who presents emergency department for evaluation syncopal episode that occurred at home. The patient states that she is taking trazodone and hydroxyzine for sleep. Patient states she took her medications and smokes marijuana. She then vomited, walked out of her kitchen and then found herself lying on the kitchen floor. She did hit her head. She does not know how long she was unconscious for. She is not on blood thinners. She is complaining of diffuse, throbbing headache which is 5/10 at its worse. She is also complaining neck pain. Vital signs revealed an elevated heart rate. Physical examination revealed no scalp tenderness or hematoma, no C-spine tenderness or tenderness palpation over her muscles of her neck. Neurologic exam was nonfocal. Differential diagnosis: Includes but is not limited to Cardiac arrhythmia, vasovagal syncope, adverse reaction to medications (trazodone and hydroxyzine ), anemia, electrolyte abnormalities Course: my interpretation patient's laboratory evaluation chronic normocytic anemia with an H&H 11.7 and 33.5 with an MCV of 84.2. Low white blood cell count of 4600. these abnormalities may be secondary to lupus. Potassium was low at 3.0. comprehensive metabolic panel was otherwise unremarkable. The patient's 12 EKG was unremarkable. The patient's lightheadedness and dizziness probably triggered by the combination trazodone and hydroxyzine that she took prior to getting into bed, this then caused her to have nausea and she vomited which most likely triggered a vasovagal event. I did discuss this with patient. Patient was advised to stop taking hydroxy seen and they told her that she should continue taking the trazodone at night. She should only take this medication when she is in bed and she has waited to go to sleep. Patient's low potassium is most likely secondary to hydrochlorothiazide. Patient was given prescription K-Dur 20 mEq po BID x 2 weeks. She was advised to continue taking her other medications as prescribed by your providers. She was advised to follow-up with her PCP for re-evaluation. Lab Data MDM Lab Attestation statement: I reviewed the patient's lab results. 10/25/24 21:59 10/25/24 21:59 Labs: Lab Results 10/25/24 Range/Units 21:59 WBC 4.6 L (4.8-10.8) X10*3/uL RBC 3.98 L (4.20-5.50) X10*6/uL Hgb 11.7 L (12.0-16.0) g/dl Hct 33.5 L (37.0-47.0) % MCV 84.2 (80.0-98.0) fL MCH 29.4 (27.0-33.0) pg MCHC 34.9 (31.0-35.0) g/dl RDW 12.8 (11.0-16.0) % Plt Count 257 (160-400) X10*3/uL MPV 8.4 L (9.4-12.3) fL Immature Gran % (Auto) 0.2 (0.0-0.4) % Neut % (Auto) 67.8 (45-73) % Lymph % (Auto) 23.8 (20-40) % [place] % (Auto) 7.8 (2-11) % Eos % (Auto) 0.2 (0-4) % Baso % (Auto) 0.2 (0-2) % Lymph # (Auto) 1.1 L (1.2-4.9) X10*3/uL [place] # (Auto) 0.4 (0.1-1.2) X10*3/uL Eos # (Auto) 0.0 (0.0-0.4) X10*3/uL Baso # (Auto) 0.0 (0.0-0.2) X10*3/uL Abs Immat Gran (auto) 0.01 (0.00-0.03) X10*3/uL Absolute Neuts (auto) 3.1 (2.0-8.3) x10*3/uL Absolute Nucleated RBC 0.000 (0.0-0.012) X10*3/uL Nucleated RBC % (auto) 0.0 (0.0-0.2) /100WBC Sodium 141 (135-145) mmol/L Potassium 3.0 L D (3.3-5.1) mmol/L Chloride 109 H (96-108) mmol/L Carbon Dioxide 23 (22-29) mmol/L Anion Gap 12 (12-20) BUN 6 L (9-16) mg/dL Creatinine 0.63 (0.5-1.4) mg/dL Estim Creat Clear Calc 116.9 Estimated GFR > 60 Random Glucose 89 (60-115) mg/dL Calcium 8.8 (8.4-10.2) mg/dL Total Bilirubin 0.2 (0.0-1.0) mg/dL AST 27 (5-31) U/L ALT 17 (0-31) U/L Alkaline Phosphatase 71 (39-117) U/L Total Protein 8.2 H (6.5-8.0) g/dL Albumin 3.9 (3.5-5.0) g/dL Independent Interpretation I performed an independent interpretation of an: EKG Interpretation: the my independent interpretation the patient's 12 EKG done 10/25/2024 at 21:46 hours is as follows: Sinus tachycardia with a rate of 127, normal DE interval, QRS duration QTC interval, no ST segment elevation, no ST segment depression, no significant T-wave abnormalities, no PACs, no PVCs compared to EKG dated 01/08/2025 done at 14:47 hours, there is no significant change. Prescription Management I considered prescription management with: Other ( potassium supplement: K-Dur) Chronic Conditions Patient?s care impacted by: Other ( lupus) Discharge Plan Discharge Clinical Impression: Dizziness, Syncope, Acute hypokalemia Patient Disposition: Home, Self-Care Instructions: Potassium Content of Foods List (ED), Hypokalemia (ED) Additional Instructions: Your blood work revealed that you were slightly anemic but not enough to make you pass out. Your comprehensive metabolic panel was normal except for a low potassium of 3.0 the normal range for potassium is 3.3-5.1. I am starting you on a potassium supplement called K door. Take 1 pill twice a day for 1 week and then try to eat a high potassium diet. I believe that your passing out and dizziness was related to the hydroxyzine and not the trazodone. I want you to stop hydroxyzine and continue to take your trazodone as prescribed at night for sleep. You should take the trazodone right when you get in bed and not before. Continue your your other medications as prescribed by your providers. Follow-up with your doctor in 2 days. Please return to the emergency department if your symptoms get worse or if you develop any symptoms that are concerning to you. Prescriptions: New potassium chloride 20 mEq tablet,ER particles/crystals 20 meq PO BID 7 Days Qty: 14 0RF No Action methadone [Methadone Intensol] 10 mg/mL Concentrate 44 mg PO DAILY naloxone [Narcan] 4 mg/actuation spray,non-aerosol 1 spray intranasal Q2M PRN (Reason: Opioid Overdose) Rx Instructions: spray 1 dose into ONE nostril; alternate nostrils w each dose until help arrives Mirena 21 mcg/24 hr (8 yrs) 52 mg Intrauterine Device INTRAUTERINE ibuprofen 800 mg tablet 800 mg PO Q8H PRN (Reason: pain) Qty: 30 0RF hydroxychloroquine 200 mg tablet 300 mg PO DAILY prednisone 5 mg tablet 5 mg PO DAILY amitriptyline 10 mg tablet 10 mg PO BEDTIME Interventions: ED Discharge Assessment Last Done: 10/26/24 00:25 Discharge Date/Time: 10/26/24 00:27 Print Language: Burundian
== END 2024-10-26 00:27 | disposition home or self-care (01) ==
PROVIDERS: Emergency Provider Emergency Medicine Emergency Medical Services; PCP Internal Medicine
DX: R55 Syncope and collapse (principal); E87.6 Hypokalemia; R42 Dizziness and giddiness; Z79.899 Other long term (current) drug therapy; D64.9 Anemia, unspecified; R11.2 Nausea with vomiting, unspecified; S09.90XA Unspecified injury of head, initial encounter; W19.XXXA Unspecified fall, initial encounter; Y93.9 Activity, unspecified; Y92.9 Unspecified place or not applicable; Y99.9 Unspecified external cause status; M32.9 Systemic lupus erythematosus, unspecified; I25.2 Old myocardial infarction
CPT/HCPCS: 36415; 80053; 85025; 93005; 99283; 99285

== ENCOUNTER → 2024-10-25 21:46 | Outpatient (BNV) | payer OTHER, SELFPAY | PROVIDERS: Emergency Provider Emergency Medicine Emergency Medical Services; PCP Internal Medicine; Visit Provider Internal Medicine | DX: R00.0 Tachycardia, unspecified (principal) | CPT/HCPCS: 93010 ==

== ENCOUNTER 2024-12-28 19:29 | Emergency (ER) | payer OTHER, SELFPAY ==
--- NOTE | 2024-12-28 | ECG_ITS ---
Test Reason : CHEST PAIN Blood Pressure : */* mmHG Vent. Rate : 112 BPM Atrial Rate : 112 BPM P-R Int : 142 ms QRS Dur : 96 ms QT Int : 366 ms P-R-T Axes : 69 72 48 degrees QTcB Int : 499 ms Sinus tachycardia Otherwise normal ECG When compared with ECG of 25-Oct-2024 21:46, No significant changes seen Referred By: Generic ED Physician Electronically Signed By: MICHELLE MONTGOMERY
--- NOTE | ~2024-12-28 | XR_ITS ---
CLINICAL HISTORY: CP 2 view chest x-ray Comparison: None Findings: No consolidation or effusion. Heart size is normal. No acute fracture. IMPRESSION: 1. No acute findings. This document has been electronically signed by: Rajendra Moreno MD on 12/28/2024 20:52:23
[2024-12-28 20:04] VITALS: BP 93/61; PULSE 113; RESP 18; TEMP 36.8; O2SAT 96; BMI 25.7
--- NOTE | 2024-12-28 20:08 | ED_ITS ---
HPI - General Adult General Chief complaint: Chest Pain Stated complaint: chest pain/sob Time Seen by Provider: 12/28/24 21:11 Source: patient Mode of arrival: ambulatory Limitations: no limitations History of Present Illness ED Provider: HPI narrative: patient's history of lupus, opiate dependence, with history of frequent chest pain last cardiac catheterization which was done in was negative was at [facility] admitted in ICU for seizures last week left AMA was seen at [facility] yesterday left against medical advice comes here for chest pain and shortness a breath going on for last 1 week patient is otherwise feel comfortable has cough with mucoid phlegm no leg swelling no current chest pain Related Data Home Medications ?Medication ?Instructions ?Recorded ?Confirmed hydroxychloroquine 200 mg tablet 300 mg PO DAILY 04/20/22 04/07/24 methadone 10 mg/mL oral 44 mg PO DAILY 01/08/24 04/07/24 concentrate (Methadone Intensol) amitriptyline 10 mg tablet 10 mg PO BEDTIME 02/11/24 04/07/24 prednisone 5 mg tablet 5 mg PO DAILY 02/11/24 04/07/24 naloxone 4 mg/actuation nasal 1 spray intranasal Q2M PRN Opioid 03/12/24 04/07/24 spray (Narcan) Overdose levonorgestrel 21 mcg/24 hr (up to mcg intrauterine 03/16/24 04/07/24 8 years) 52 mg intrauterine device (Mirena) Previous Rx's ?Medication ?Instructions ?Recorded ibuprofen 800 mg tablet 800 mg PO Q8H PRN pain #30 tabs 03/27/24 potassium chloride 20 mEq 20 meq PO BID 7 days #14 tabs 10/26/24 tablet,extended release(part/cryst) Allergies Allergy/AdvReac Type Severity Reaction Status Date / Time metoclopramide [From Reglan] Allergy Severe itching Verified 12/28/24 20:06 all over, shaking Review of Systems 2 Review of Systems: Yes all other systems are reviewed and are negative PMFSH Past Medical History Medical History Umbilical hernia Hx of drug overdose (01/10/24) IUD (intrauterine device) in place Anemia Constipation Hx of myocardial infarction Lupus Opiate dependence Lupus Surgical History Incarcerated umbilical hernia (03/27/24) Hx of cardiac catheterization (~2021) Hx of cholecystectomy (~2019) Family History Family History Sister SLE (systemic lupus erythematosus related syndrome) Social History Social History Household Members: Unknown / Unable to assess Housing Other:: to drowsy to answer Are you a primary career and technology education teacher to a significant other at home: No Do you presently have visiting nurse or other home services: No Alcohol intake: never Patient Tobacco Use Status: Former Tobacco user Tobacco use type: Smokeless Tobacco Cigarettes Per Day: 6 Smoked in Last 30 Days: No Substance Use Type: Marijuana Advance Directives: No Advance Directives Information Provided: Yes Do you have a plan to hurt others: No Plan Patient : No service: No Physical Exam ED Vital Signs: Vital Signs - 24 hr 12/28/24 20:04 12/28/24 22:18 Temperature 98.2 F 97.3 F Pulse Rate 113 H 104 H Respiratory Rate 18 18 Blood Pressure 93/61 99/57 L Pulse Oximetry 96 98 Oxygen Delivery Method Room Air Room Air BMI result Body Mass Index 25.7 Appearance: Alert. Oriented X3. No acute distress. Eyes: PERRLA, No Nystagmus ENT: Pharynx normal. Oral Mucosa moist Neck: Normal inspection. Neck supple. CVS: Normal heart rate and rhythm. Pulses normal. Respiratory: No respiratory distress. Equal air entry bilateral, no wheezing/rales/rhonchi Abdomen: Soft and nontender. Bowel sounds are present, no mass palpable, no CVA tenderness Skin: Skin warm and dry. Normal skin color. Normal skin turgor. Extremities: No lower extremity edema. No calf tenderness Neuro: Oriented X 3. No motor deficit. No sensory deficit.No cerebellar signs , cranial nerves II-XII intact Course Course Course Narrative: This is an RME: Additional HPI, ROS, PE not included below will be deferred to primary provider. RME assessment and note performed by: Veronica Aaron PA-C This is a 34-year-old female with history of seizures anemia, lupus, opiate dependence, myocardial infarction, history of drug overdose who presents emergency department with concerns of chest pain. Reports that she had a recent admission to [facility] ICU last week where she was intubated (however pt was seen on 12/22 and d/c from the ED after being found to have hypokalemia). Reports that yesterday she was seen at [facility] [place] but signed AMA as her friend . Plan: Will try to get records from [facility], labs, ekg, cxr, further Er eval needed Medical Decision Making Medical Decision Making [facility] Narrative: patient has atypical chest pain and shortness of breath saturating 96% at room air early elevated BNP chest x-ray negative for CHF patient has been to multiple hospitals in last 1 week, at this time patient does not have any ACS finding advised to follow up with PCP Differential Diagnosis Differential Diagnoses: The differential diagnosis associated with the presentation includes ACS/CHF/ musculoskeletal/anxiety Lab Data [facility] Lab Attestation statement: I reviewed the patient's lab results. 12/28/24 20:32 12/28/24 20:32 Labs: Lab Results 12/28/24 12/28/24 Range/Units 20:28 20:32 WBC 3.2 L (4.8-10.8) X10*3/uL RBC 3.48 L (4.20-5.50) X10*6/uL Hgb 10.1 L (12.0-16.0) g/dl Hct 29.9 L (37.0-47.0) % MCV 85.9 (80.0-98.0) fL MCH 29.0 (27.0-33.0) pg MCHC 33.8 (31.0-35.0) g/dl RDW 12.6 (11.0-16.0) % Plt Count 334 D (160-400) X10*3/uL MPV 9.5 (9.4-12.3) fL Immature Gran % (Auto) 0.6 H (0.0-0.4) % Neut % (Auto) 49.1 (45-73) % Lymph % (Auto) 39.6 (20-40) % [place] % (Auto) 9.1 (2-11) % Eos % (Auto) 1.3 (0-4) % Baso % (Auto) 0.3 (0-2) % Lymph # (Auto) 1.3 (1.2-4.9) X10*3/uL [place] # (Auto) 0.3 (0.1-1.2) X10*3/uL Eos # (Auto) 0.0 (0.0-0.4) X10*3/uL Baso # (Auto) 0.0 (0.0-0.2) X10*3/uL Abs Immat Gran (auto) 0.02 (0.00-0.03) X10*3/uL Absolute Neuts (auto) 1.6 L (2.0-8.3) x10*3/uL Absolute Nucleated RBC 0.000 (0.0-0.012) X10*3/uL Nucleated RBC % (auto) 0.0 (0.0-0.2) /100WBC Sodium 138 (135-145) mmol/L Potassium 3.7 D (3.3-5.1) mmol/L Chloride 104 (96-108) mmol/L Carbon Dioxide 25 (22-29) mmol/L Anion Gap 13 (12-20) BUN 8 L (9-16) mg/dL Creatinine 0.67 (0.5-1.4) mg/dL Estim Creat Clear Calc 111.0 Estimated GFR > 60 Random Glucose 82 (60-115) mg/dL Calcium 8.8 (8.4-10.2) mg/dL Magnesium 1.8 (1.6-2.6) mg/dL Total Bilirubin 0.3 (0.0-1.0) mg/dL Direct Bilirubin 0.1 (0.0-0.5) mg/dL AST 100 H (5-31) U/L ALT 77 H (0-31) U/L Alkaline Phosphatase 99 (39-117) U/L Troponin I High Sens < 2.7 D (<3.5-17.0) ng/L B-Natriuretic Peptide 222 H (<100) pg/mL Total Protein 8.5 H (6.5-8.0) g/dL Albumin 3.8 (3.5-5.0) g/dL Influenza Type A (PCR) NEGATIVE (Negative) Influenza Type B (PCR) NEGATIVE (Negative) RSV RNA Qual (PCR) NEGATIVE (Negative) SARS-CoV-2 RNA (RT-PCR) NEGATIVE (Negative) Independent Interpretation I performed an independent interpretation of an: EKG Radiology Impression Discussion of test interpretation with radiology: I have reviewed the radiologist's reading. Radiologist Impression: sinus tachycardia with heart rate of 112 beats per minute normal intervals normal axis no acute ST-T changes no acute ischemia Discharge Plan Discharge Clinical Impression: Atypical chest pain Patient Disposition: Home, Self-Care Instructions: Chest Pain (ED) Additional Instructions: continue to take your medications as prescribed by your PCP and follow up At this time there is no evidence of coronary artery disease see your PCP next week for further management Prescriptions: No Action methadone [Methadone Intensol] 10 mg/mL Concentrate 44 mg PO DAILY naloxone [Narcan] 4 mg/actuation spray,non-aerosol 1 spray intranasal Q2M PRN (Reason: Opioid Overdose) Rx Instructions: spray 1 dose into ONE nostril; alternate nostrils w each dose until help arrives Mirena 21 mcg/24 hr (8 yrs) 52 mg Intrauterine Device INTRAUTERINE ibuprofen 800 mg tablet 800 mg PO Q8H PRN (Reason: pain) Qty: 30 0RF potassium chloride 20 mEq tablet,ER particles/crystals 20 meq PO BID 7 Days Qty: 14 0RF hydroxychloroquine 200 mg tablet 300 mg PO DAILY prednisone 5 mg tablet 5 mg PO DAILY amitriptyline 10 mg tablet 10 mg PO BEDTIME Interventions: ED Discharge Assessment Last Done: 12/28/24 22:18 Discharge Date/Time: 12/28/24 22:19 Print Language: Nepali
[2024-12-28 20:38] LABS: MANUAL DIFF FLAG NO
[2024-12-28 20:41] LABS: Basophils Percent Auto 0.3 % (0-2); Eosinophils Percent Auto 1.3 % (0-4); Hematocrit 29.9 % (37.0-47.0); Hemoglobin 10.1 g/dl (12.0-16.0); Imm Gran Abs Auto 0.02 X10*3/uL (0.00-0.03); Imm Gran Pct Auto 0.6 % (0.0-0.4); Lymphocytes Absolute Auto 1.3 X10*3/uL (1.2-4.9); Lymphocytes Percent Auto 39.6 % (20-40); Mean Corpuscular HGB Conc 33.8 g/dl (31.0-35.0); Mean Corpuscular Volume 85.9 fL (80.0-98.0); Mean Platelet Volume 9.5 fL (9.4-12.3); Monocytes Absolute Auto 0.3 X10*3/uL (0.1-1.2); Monocytes Percent Auto 9.1 % (2-11); Neutrophils Absolute Auto 1.6 x10*3/uL (2.0-8.3); Neutrophils Percent Auto 49.1 % (45-73); Platelet Count 334 X10*3/uL (160-400); Red Blood Count 3.48 X10*6/uL (4.20-5.50); Red Cell Distribution Width 12.6 % (11.0-16.0); White Blood Count 3.2 X10*3/uL (4.8-10.8)
[2024-12-28 20:57] LABS: Alanine Aminotransferase 77 U/L (0-31); Albumin Level 3.8 g/dL (3.5-5.0); Alkaline Phosphatase 99 U/L (39-117); Anion Gap 13 (12-20); Aspartate Amino Transferase 100 U/L (5-31); Bilirubin Direct 0.1 mg/dL (0.0-0.5); Bilirubin Total 0.3 mg/dL (0.0-1.0); Blood Urea Nitrogen 8 mg/dL (9-16); Calcium 8.8 mg/dL (8.4-10.2); Carbon Dioxide 25 mmol/L (22-29); Chloride 104 mmol/L (96-108); Estimated Glomerular Filt Rate > 60; Glucose Random 82 mg/dL (60-115); Magnesium 1.8 mg/dL (1.6-2.6); Potassium 3.7 mmol/L (3.3-5.1); Sodium 138 mmol/L (135-145); Total Protein 8.5 g/dL (6.5-8.0)
[2024-12-28 21:01] LABS: B Type Natriuretic Peptide 222 pg/mL (<100)
[2024-12-28 21:04] LABS: Troponin-I High Sensitivity < 2.7 ng/L (<3.5-17.0)
[2024-12-28 21:19] LABS: Influenza A PCR NEGATIVE (Negative); Influenza B PCR NEGATIVE (Negative); Resp Syncy Virus RNA Qual PCR NEGATIVE (Negative); SARS COV2 PCR INHOUSE NEGATIVE (Negative)
[2024-12-28 22:13] VITALS: PULSE 92
[2024-12-28 22:18] VITALS: BP 99/57; PULSE 104; RESP 18; TEMP 36.3; O2SAT 98
== END 2024-12-28 22:19 | disposition home or self-care (01) ==
PROVIDERS: Physician Assistant Medical; Emergency Provider Internal Medicine; PCP Internal Medicine
DX: R07.89 Other chest pain (principal); F11.20 Opioid dependence, uncomplicated; R06.02 Shortness of breath; Z03.818 Encounter for observation for suspected exposure to other biological agents ruled out; Z79.899 Other long term (current) drug therapy; Z87.891 Personal history of nicotine dependence
CPT/HCPCS: 0241U; 71046; 80048; 80076; 83735; 83880; 84484; 85025; 93005; 99283; 99285

== ENCOUNTER → 2024-12-28 19:48 | Outpatient (BNV) | payer OTHER, SELFPAY | PROVIDERS: Emergency Provider Internal Medicine; PCP Internal Medicine; Visit Provider Internal Medicine | DX: R00.0 Tachycardia, unspecified (principal) | CPT/HCPCS: 93010 ==

== ENCOUNTER → 2024-12-28 20:13 | Outpatient (BNV) | payer OTHER, SELFPAY | PROVIDERS: PCP Internal Medicine; Visit Provider Nuclear Medicine | DX: R07.9 Chest pain, unspecified (principal) | CPT/HCPCS: 71046 ==